=== PATIENT | male | born 1990 | race Caucasian/White ===

== ENCOUNTER 2020-11-02 10:40 | Emergency (ER) | payer MEDICAID, SELFPAY ==
--- NOTE | 2020-11-02 11:22 | PC.NURSE ---
pt not present when called for triage
== END 2020-11-02 11:45 | disposition left against medical advice (07) ==
PROVIDERS: Emergency Provider Emergency Medicine
DX: R10.9 Unspecified abdominal pain (principal)

== ENCOUNTER 2020-11-02 14:41 | Emergency (ER) | payer MEDICAID, SELFPAY ==
--- NOTE | 2020-11-02 14:54 | CT_ITS ---
EXAMINATION: CT ABDOMEN AND PELVIS WITHOUT CONTRAST CLINICAL INFORMATION: Vomiting. COMPARISON: None TECHNIQUE: Multidetector volumetric imaging was performed from the superior aspect of the liver through the pubic symphysis. Sagittal and coronal reformatted images were obtained on the technologist's workstation. This CT examination was performed using dose optimization techniques as appropriate, variously including the following: *Automated exposure control *Adjustment of mA and/or kV according to patient size (this includes techniques or standardized protocols for targeted exams where dose is matched to indication/reason for exam; i.e. extremities or head) *Use of iterative reconstruction technique DLP: 533 mGy-cm FINDINGS: LUNG BASES: The visualized lung bases are unremarkable. LIVER, GALLBLADDER, AND BILIARY TREE: The liver is normal in size, shape, and attenuation. No focal hepatic lesion or biliary ductal dilatation is present. The gallbladder is unremarkable with no evidence of radiopaque gallstones, gallbladder wall thickening, or obvious pericholecystic inflammatory changes. PANCREAS: There is fluid collection seen posterior to the body of the pancreas which is contiguous to fluid posterior to gastric fundus. The size of the fluid posterior pancreas appears smaller compared to previous study. SPLEEN: Unremarkable. ADRENAL GLANDS: Unremarkable. KIDNEYS AND URETERS: The kidneys are normal in size, shape, and attenuation. No hydronephrosis, hydroureter, or calculi seen. No perinephric stranding. BLADDER: Unremarkable. GASTROINTESTINAL TRACT: There is large amount of stool seen throughout the colon without significant distention. The appendix is normal caliber. The small bowel loops are normal caliber. No free air or inflammatory changes seen. ABDOMINAL WALL: No significant hernia is appreciated. LYMPH NODES: Normal. VASCULAR: Unremarkable. PELVIC VISCERA: Unremarkable. OSSEOUS STRUCTURES: No lytic or sclerotic process seen. CT/CT abdomen pelvis wo con IMPRESSION: There is scattered stool seen throughout the colon without any significant distention. The appendix is normal caliber. Retroperitoneal fluid collection from posterior the gastric fundus extending inferiorly to the posterior body of pancreas has decreased in size compared to previous exam 01/31/2016 There is no acute abdominal process seen
--- NOTE | 2020-11-02 14:56 | ECG_ITS ---
Test Reason : ABDOMINAL PAIN Blood Pressure : / mmHG Vent. Rate : 074 BPM Atrial Rate : 074 BPM P-R Int : 112 ms QRS Dur : 106 ms QT Int : 388 ms P-R-T Axes : 021 075 003 degrees QTc Int : 430 ms Normal sinus rhythm Normal ECG When compared with ECG of 21-MAR-2019 04:58, Nonspecific T wave abnormality no longer evident in Anterior leads Referred By: Rachel Crowder Electronically Signed By:AMARILYS ANDRADE
--- NOTE | 2020-11-02 15:02 | ED.ABDPAIN ---
HPI - Abdominal Pain General Chief Complaint: Abdominal Pain Stated Complaint: ABD PAIN/VOMITING Time Seen by Provider: 11/02/20 14:53 History of Present Illness HPI narrative: Patient is a 30-year-old male with a long history of marijuana use. Started having nausea Related Data Allergies Allergy/AdvReac Type Severity Reaction Status Date / Time No Known Allergies Allergy Unverified 07/20/20 16:07 [No Known Allergies*] PMFSH Past Medical History Medical History (Updated 11/02/20 @ 15:05 by Hector Gray) No known health problems Social History Social History Alcohol intake: never Smoking Status: Never smoker Use of substances other than those prescribed or required for medical reasons: Yes Substance Use Type: Marijuana
[2020-11-02 15:04] VITALS: BP 142/72; PULSE 72; RESP 18; TEMP 36.9; O2SAT 100; BMI 30.6
--- NOTE | 2020-11-02 15:15 | ED_ITS ---
HPI - General Adult General Chief complaint: Abdominal Pain Stated complaint: ABD PAIN/VOMITING Time Seen by Provider: 11/02/20 14:53 History of Present Illness HPI narrative: Patient is a 30-year-old male with a long history of marijuana abuse. Complaining of having multiple episodes of nausea vomiting excruciating 08/12. Patient claims that the symptoms are usually improved with a hot shower. Patient smokes some more marijuana tried a hot shower did not work continued to have nausea vomiting having abdominal pain in the epigastric area. Patient was actually calm on the ambulance. On arrival patient start sticking his finger down his throat and had a extreme nausea vomiting abdominal pain. Related Data Previous Rx's Medication Instructions Recorded ondansetron 4 mg PO TID PRN 5 Days #10 tab 11/02/20 Allergies Allergy/AdvReac Type Severity Reaction Status Date / Time No Known Allergies Allergy Unverified 07/20/20 16:07 [No Known Allergies*] Review of Systems Review of Systems: Constitutional: No Weight loss, No Fever, No Chills, No Night Sweats, No Fatigue, No Malaise ENT/Mouth: No Hearing loss, No Ear Pain, No Nasal Congestion, No Sinus Pain, No Hoarseness, No sore throat, No Rhinorrhea, No Swallowing Difficulty Eyes: No Eye Pain, No Swelling, No Redness, No Foreign Body, No Discharge, No Vision Changes Cardiovascular: No Chest Pain, No SOB, No Dyspnea on Exertion, No Orthopnea, No Edema, No Palpitations Respiratory: No Cough, No Sputum, No Wheezing, No Smoke Exposure, No Dyspnea Gastrointestinal: Positive nausea, vomiting, No Diarrhea, No Constipation, positive abdominal Pain, No Hematochezia, No Melena Genitourinary: no irregular bleeding, No Dysuria, No Urinary Frequency, No Hematuria, No Urinary Incontinence, No Urgency, No Flank Pain, No Urinary Flow Changes, No Hesitancy Musculoskeletal: No joint pain, No Myalgias, No Joint Swelling Skin: No Skin Lesions, No rash Neuro: No Weakness, No Numbness, No Paresthesias, No Loss of Consciousness, No Dizziness, No Headache Psych: No Anxiety/Panic, No Depression, No SI/HI/AH/VH, No Social Issues, Heme/Lymph: No Bruising, No Bleeding,No Lymphadenopathy Endocrine: No Polyuria, No Polydipsia, No Temperature Intolerance COUNTS INCLUDE 234 BEDS AT THE [facility] Past Medical History Attestation statement: The following information was validated with the patient. Medical History No known health problems Social History Social History Alcohol intake: never Smoking Status: Never smoker Use of substances other than those prescribed or required for medical reasons: Yes Substance Use Type: Marijuana Advance Directives: No Advance Directives Information Provided: No Physical Exam Vital Signs: Vital Signs: Last Vital Signs Temp 98.4 F 11/02/20 15:04 Pulse 72 11/02/20 15:04 Resp 18 11/02/20 15:04 BP 142/72 H 11/02/20 15:04 Pulse Ox 100 11/02/20 15:04 Body Mass Index 30.6 Appearance: Alert. Oriented X3. Nauseous vomiting Eyes: Pupils equal, round and reactive to light. ENT: Pharynx normal. Neck: Normal inspection. Neck supple. No lymph nodes noted. No crepitus CVS: Normal heart rate and rhythm. Pulses normal. Normal S1 and S2 Respiratory: No respiratory distress. Breath sounds normal. No Wheezing. No rales Abdomen: Soft and nontender. No rigidity. No distention. good BS x4 Skin: Skin warm and dry. Normal skin color. Normal skin turgor. Extremities: No lower extremity edema. Neurovascular intact to all extremities. No Lacerations. No Rash Neuro: Oriented X 3. No motor deficit. No sensory deficit. Moving all extermities. No slurred speech Medical Decision Making MDM Narrative Medical decision making narrative: Patient's CT scan of the abdomen pelvis show ed no evidence of obstruction. No abscess. No perforation. White count elevated consistent with the nausea vomiting. Electrolytes unremarkable. Discussed with patient at length the need to stop using marijuana. Patient states understanding. Will give additional doses of Zofran. IV fluids given. Patient is given Haldol initially after EKG was checked. There is no QT prolongation. In stable condition with discharge home when patient tolerate fluids. Lab Data Result diagrams: 11/02/20 15:20 11/02/20 10:26 Labs: Lab Results 11/02/20 11/02/20 Range/Units 10:26 15:20 WBC 15.2 H (4.8-10.8) X10*3/uL RBC 5.31 (4.60-5.80) X10*6/uL Hgb 14.1 (14.0-18.0) g/dl Hct 43.9 (42-52) % MCV 82.7 (80-98) fL MCH 26.6 L (27.0-33.0) pg MCHC 32.1 (31.0-36.0) g/dl RDW 12.9 (11.0-16.0) % Plt Count 218 (160-400) X10*3/uL MPV 10.5 (9.4-12.4) fL Immature Gran % (Auto) 0.3 (0.0-0.4) % Neut % (Auto) 90.5 H (45-73) % Lymph % (Auto) 3.7 L (20-40) % Ingham % (Auto) 5.3 (2-11) % Eos % (Auto) 0.0 (0-4) % Baso % (Auto) 0.2 (0-2) % Lymph # (Auto) 0.6 L (1.2-4.9) X10*3/uL [place] # (Auto) 0.8 (0.1-1.2) X10*3/uL Eos # (Auto) 0.0 (0.0-0.4) X10*3/uL Baso # (Auto) 0.0 (0.0-0.2) X10*3/uL Abs Immat Gran (auto) 0.04 H (0.00-0.03) X10*3/uL Absolute Neuts (auto) 13.7 H (2.0-8.3) X10*3/uL Absolute Nucleated RBC 0.000 (0.0-0.012) X10*3/uL Nucleated RBC % (auto) 0.0 (0.0-0.2) /100WBC Sodium 141 (135-145) mmol/L Potassium 4.1 (3.3-5.1) mmol/l Chloride 102 (96-108) mmol/L Carbon Dioxide 28 (22-29) mmol/L Anion Gap 15 (12-20) BUN 17 H (9-16) mg/dL Creatinine 1.39 (0.5-1.4) mg/dL Estim Creat Clear Calc 78.6 Estimated GFR > 60 Random Glucose 165 H (60-115) mg/dL Calcium 10.6 H (8.4-10.2) mg/dL Total Bilirubin 0.7 (0.0-1.0) mg/dL Direct Bilirubin 0.3 (0.0-0.5) mg/dL AST 20 (5-37) U/L ALT 22 (0-40) U/L Alkaline Phosphatase 76 (39-117) U/L Total Protein 7.9 (6.5-8.0) g/dL Albumin 5.4 H (3.5-5.0) g/dL Lipase 4 L (8-78) U/L ECG Data Interpretation: Sinus heart rate was 90 CA QRS QT within normal limits is no acute ST segment elevation noted. Discharge Plan Discharge Clinical Impression: Cyclic vomiting syndrome Patient Disposition: Home, Self-Care Instructions: Cyclic Vomiting Syndrome (ED) Additional Instructions: Please stop using marijuana. The marijuana does not agree with you and you can get repeated bouts of the same cyclic vomiting syndrome. Prescriptions: New ondansetron 4 mg tablet,disintegrating 4 mg PO TID PRN (Reason: nausea and vomiting) 5 Days Qty: 10 RF: 0 Referrals: [facility] [Primary Care Provider] - 2 days
[2020-11-02 15:25] LABS: Basophils Percent Auto 0.2 % (0-2); Hematocrit 43.9 % (42-52); Hemoglobin 14.1 g/dl (14.0-18.0); Imm Gran Abs Auto 0.04 X10*3/uL (0.00-0.03); Imm Gran Pct Auto 0.3 % (0.0-0.4); Lymphocytes Absolute Auto 0.6 X10*3/uL (1.2-4.9); Lymphocytes Percent Auto 3.7 % (20-40); Mean Corpuscular HGB Conc 32.1 g/dl (31.0-36.0); Mean Corpuscular Hemoglobin 26.6 pg (27.0-33.0); Mean Corpuscular Volume 82.7 fL (80-98); Mean Platelet Volume 10.5 fL (9.4-12.4); Monocytes Absolute Auto 0.8 X10*3/uL (0.1-1.2); Monocytes Percent Auto 5.3 % (2-11); Neutrophils Absolute Auto 13.7 X10*3/uL (2.0-8.3); Neutrophils Percent Auto 90.5 % (45-73); Platelet Count 218 X10*3/uL (160-400); Red Blood Count 5.31 X10*6/uL (4.60-5.80); Red Cell Distribution Width 12.9 % (11.0-16.0); SCAN SMEAR FLAG 1; White Blood Count 15.2 X10*3/uL (4.8-10.8)
[2020-11-02 15:27] LABS: MANUAL DIFF FLAG NO
[2020-11-02] MEDS: 0.9 % Sodium Chloride 1,000 ML 999 ML IV (15:27)
[2020-11-02] MEDS: Haloperidol Lactate 5 MG/ML VIAL IM (15:27)
[2020-11-02 15:54] LABS: Alanine Aminotransferase 22 U/L (0-40); Albumin Level 5.4 g/dL (3.5-5.0); Alkaline Phosphatase 76 U/L (39-117); Anion Gap 15 (12-20); Aspartate Amino Transferase 20 U/L (5-37); Bilirubin Direct 0.3 mg/dL (0.0-0.5); Bilirubin Total 0.7 mg/dL (0.0-1.0); Blood Urea Nitrogen 17 mg/dL (9-16); Calcium 10.6 mg/dL (8.4-10.2); Carbon Dioxide 28 mmol/L (22-29); Chloride 102 mmol/L (96-108); Creatinine Clr Calc Pharmacy 78.6; Estimated Glomerular Filt Rate > 60; Glucose Random 165 mg/dL (60-115); Lipase 4 U/L (8-78); Potassium 4.1 mmol/l (3.3-5.1); Sodium 141 mmol/L (135-145); Total Protein 7.9 g/dL (6.5-8.0)
[2020-11-02] MEDS: ondansetron HCL 4 MG/2 ML VIAL IVPUSH (16:34)
--- NOTE | 2020-11-02 16:36 | PC.NURSE ---
PT REPEATEDLY YELLING FROM ROOM HELP ME! NURSE! , THEN THIS RN ENTERS ROOM PT STS YOU ARENT DOING ANYTHING FOR ME , PT THEN ON PHONE TO MOTHER ASKING HER TO PICK HIM UP. DR KNIGHT HAS SPOKEN WITH PATIENT MULTIPLE TIMES ABOUT LAB AND CT RESULTS, MEDICATIONS GIVEN AND OPTIONS FOR CARE. PT MEDICATED W/ IV ZOFRAN PER EMAR, PT L SIDE LYING IN BED RESTING IN NAD, RR EVEN UNLABORED, SKIN WPD.
--- NOTE | 2020-11-02 17:08 | PC.NURSE ---
THIS RN WENT TO PT ROOM TO CHECK VITALS AND FOUND PT HAD ELOPED. THIS RN CALLED PT'S CELL PHONE, UNABLE TO REACH PT AND LEFT MSG, THEN CONTACTED MOTHER WHO REPORTED PT WAS AT HOME AND STILL HAD HIS IV IN PLACE, PT'S MOTHER VERBALLY STATED THE HE THEN REMOVED IT, THIS RN REQUESTED THAT THE IV BE RETURNED TO ED FOR PROOF OF REMOVAL OR PD WOULD BE CONTACTED, PT'S MOTHER STATED SHE WOULD BRING IT NOW.
--- NOTE | 2020-11-02 17:23 | PC.NURSE ---
PT'S MOTHER RETURNED TO ED W/ REMOVED IV
== END 2020-11-02 17:13 | disposition home or self-care (01) ==
PROVIDERS: Emergency Medicine Emergency Medical Services; Emergency Provider Emergency Medicine
DX: R11.15 Cyclical vomiting syndrome unrelated to migraine (principal); R10.9 Unspecified abdominal pain; F12.10 Cannabis abuse, uncomplicated; Z71.51 Drug abuse counseling and surveillance of drug abuser; Z79.899 Other long term (current) drug therapy
CPT/HCPCS: 36415; 74176; 80048; 80076; 83690; 85025; 93005; 96361; 96372; 96375; 99284; J2405

== ENCOUNTER 2020-11-04 09:37 | Inpatient (IN) | payer MEDICAID, SELFPAY ==
[2020-11-04] VITALS (9 sets, daily range): BP systolic 144–184; BP diastolic 82–130; PULSE 66–110; RESP 12–18; TEMP 36.5–36.9; O2SAT 97–100
--- NOTE | 2020-11-04 09:50 | XR_ITS ---
EXAMINATION: XR CHEST CLINICAL INFORMATION: Suspected free air. COMPARISON: Chest done on 03/22/2019. TECHNIQUE: 2 views of the chest were obtained. FINDINGS: No significant abnormality is noted involving the heart, lungs, mediastinum, bony thorax or soft tissues. XR/XR chest 2V IMPRESSION: Unremarkable examination. No radiographic evidence of free air.
--- NOTE | 2020-11-04 09:50 | ECG_ITS ---
Test Reason : EMESIS Blood Pressure : / mmHG Vent. Rate : 076 BPM Atrial Rate : 076 BPM P-R Int : 116 ms QRS Dur : 096 ms QT Int : 384 ms P-R-T Axes : 049 084 012 degrees QTc Int : 432 ms Normal sinus rhythm Nonspecific ST and T wave abnormality Abnormal ECG When compared with ECG of 02-NOV-2020 15:16, No significant change was found Referred By: Julia Roberts Electronically Signed By:AMARILYS ANDRADE
--- NOTE | 2020-11-04 09:59 | ED.ABDPAIN ---
HPI - Abdominal Pain General Chief Complaint: Abdominal Pain Stated Complaint: ABD PAIN W/VOMITING Time Seen by Provider: 11/04/20 09:43 Source: patient and EMS Mode of arrival: EMS History of Present Illness HPI narrative: 30 y.o. M presenting to the ED with abdominal pain, N/V. Pt. reports he is still smoking marijuana and this feels similar to his past episodes where he vomits due to his marijuana. He was seen on 11/02 and given zofran but states it has not helped. He notes some blood in his vomit. He has not slept in 3 days/. He denies fevers, CP, SOB, cough, black stool, rectal bleeding, urinary changes. Hot showers usually help but they did not today. Related Data Previous Rx's Medication Instructions Recorded ondansetron 4 mg PO TID PRN 5 Days #10 tab 11/02/20 Allergies Allergy/AdvReac Type Severity Reaction Status Date / Time No Known Allergies Allergy Verified 11/04/20 09:49 [No Known Allergies*] Review of Systems Constitutional: Denies fever(s) and Denies headache(s) Eyes: Reports no additional eye complaints Denies headache(s) Cardiovascular: Denies chest pain and Denies dyspnea Respiratory: Denies dyspnea Gastrointestinal: Reports abdominal pain and Reports vomiting Comments: denies dysuria Musculoskeletal: Reports no additional musculoskeletal complaints Denies headache(s) Comments: insomnia Hematologic/Lymphatic: Denies easy bleeding Physical Exam Vital Signs: Vital Signs: Last Vital Signs Temp 97.7 F 11/04/20 09:43 Pulse 85 11/04/20 11:09 Resp 12 11/04/20 11:56 BP 152/92 H 11/04/20 11:09 Pulse Ox 100 11/04/20 11:09 Body Mass Index 30.0 Const: Other: appears uncomfortable Orientation/consciousness: patient oriented x3 HENMT: Head: Yes normocephalic Eyes: Pupils: Equal, round and reactive pupils present Neck: Neck: Yes supple Resp: Effort & Inspection: normal respiratory effort Auscultation: clear to auscultation bilaterally Cardio: Rate: regular rate Rhythm: regular rhythm GI: Other: mild diffuse tenderness, no peritonitis, moans when palpating his abdomen Inspection: No distended Palpation (GI): Soft to palpation Back/Spine/Pelvis: Other: normal ROM Skin: Other: pale Rashes: no rashes Neuro: General: patient oriented x3 Cranial nerves: Yes Equal, round and reactive pupils present Extrem: General: Yes normal to inspection Psych: Appearance: grossly normal Course Reevaluation(s) Reevaluation #1: RN advised me Cr > 6, no hx of renal failure. Glucose 167. Suspect this may be due to a lab error, will redraw. Cr on 11/02 was 1.39 Time: 10:51 Reevaluation #2: pt. getting haldol now, still appears uncomfortable. Guiac performed with RN at bedside, negative, not much stool output but no gross melena therefore upper GI bleed less likely. Reevaluation #3: Repeat Cr downtrending but still greater than 5, BUN also elevated, on second liter of fluids now. I suspect this renal failure is secondary to the vomiting. Leukocytosis of >21, has elevated wbc at baseline, K is normal. LFTS are WNL. Tachycardia resolved after fluids. Will admit for iV hydration, pain control and antiemetics. Case was discussed with attending who agreed with admission, no further suggestions given. Time: 12:02 Consultations Additional Consultation(s): Pt. admitted to hospitalist service who requested renal US. Will order. MDM - Abdominal Pain MDM Narrative Medical decision making narrative: 30-year-old male presents to emergency department with diffuse abdominal pain and vomiting, continuing to smoke marijuana Vital signs sinificant for tachycardia HR 110, and HTN (153/109) nontoxic appearing, hemodynamically stable Will repeat basic labs today. Will check for electrolyte abnormalities. Will check LFTs and lipase. Will check UA for source of infection. Will obtain EKG prior to giving antiemetics. Will give him IV hydration with LR. Patient was seen on 11/02 and had labs drawn additionally had a abdominal CT which showed IMPRESSION: There is scattered stool seen throughout the colon without any significant distention. The appendix is normal caliber. Retroperitoneal fluid collection from posterior the gastric fundus extending inferiorly to the posterior body of pancreas has decreased in size compared to previous exam 01/31/2016 There is no acute abdominal process seen Clinical impression seems consistent with cyclical hyperemesis cannabinoid syndrome. Will treat him symptomatically. Given his CT was 3 days ago will defer on repeating. Patient also endorses blood in his vomit will send for chest x-ray to rule out free air to exclude veda diego tear, however he is currently not retching. Upper GI bleed less likely as he denies melena. No peritonitis to suggest perforated ulcer. He is an ocassional ETOH drinker, denies everyday use, pancreatitis less likely but will check lipase. Lab Data Result diagrams: 11/04/20 10:11 11/04/20 11:04 Labs: Lab Results 11/04/20 11/04/20 11/04/20 Range/Units 10:11 10:11 11:04 WBC 21.4 H (4.8-10.8) X10*3/uL RBC 6.29 H (4.60-5.80) X10*6/uL Hgb 16.9 (14.0-18.0) g/dl Hct 50.4 (42-52) % MCV 80.1 (80-98) fL MCH 26.9 L (27.0-33.0) pg MCHC 33.5 (31.0-36.0) g/dl RDW 13.1 (11.0-16.0) % Plt Count 325 D (160-400) X10*3/uL MPV 10.9 (9.4-12.4) fL Immature Gran % (Auto) 0.5 H (0.0-0.4) % Neut % (Auto) 85.4 H (45-73) % Lymph % (Auto) 6.7 L (20-40) % Richardson % (Auto) 7.2 (2-11) % Eos % (Auto) 0.0 (0-4) % Baso % (Auto) 0.2 (0-2) % Lymph # (Auto) 1.4 (1.2-4.9) X10*3/uL Richardson # (Auto) 1.5 H (0.1-1.2) X10*3/uL Eos # (Auto) 0.0 (0.0-0.4) X10*3/uL Baso # (Auto) 0.1 (0.0-0.2) X10*3/uL Abs Immat Gran (auto) 0.10 H (0.00-0.03) X10*3/uL Absolute Neuts (auto) 18.3 H (2.0-8.3) X10*3/uL Absolute Nucleated RBC 0.000 (0.0-0.012) X10*3/uL Nucleated RBC % (auto) 0.0 (0.0-0.2) /100WBC Smear Tech's Comments VERIFIED Sodium 133 L 136 (135-145) mmol/L Potassium 4.0 3.7 (3.3-5.1) mmol/l Chloride 89 L 90 L (96-108) mmol/L Carbon Dioxide 20 L 26 (22-29) mmol/L Anion Gap 28 H 24 H (12-20) BUN 38 H D 38 H (9-16) mg/dL Creatinine 6.38 H* 5.89 H* (0.5-1.4) mg/dL Estim Creat Clear Calc 16.4 17.7 Estimated GFR 10 11 Random Glucose 167 H 159 H (60-115) mg/dL Calcium 11.3 H D 10.1 D (8.4-10.2) mg/dL Total Bilirubin 0.6 0.6 (0.0-1.0) mg/dL Direct Bilirubin 0.3 (0.0-0.5) mg/dL AST 36 D 28 (5-37) U/L ALT 26 21 (0-40) U/L Alkaline Phosphatase 92 D 83 (39-117) U/L Total Protein 10.0 H D 8.6 H (6.5-8.0) g/dL Albumin 6.4 H 5.7 H (3.5-5.0) g/dL Lipase 5 L (8-78) U/L COVID-19 (JERRY) (Negative) COVID-19 Clin Com 11/04/20 Range/Units 12:12 WBC (4.8-10.8) X10*3/uL RBC (4.60-5.80) X10*6/uL Hgb (14.0-18.0) g/dl Hct (42-52) % MCV (80-98) fL MCH (27.0-33.0) pg MCHC (31.0-36.0) g/dl RDW (11.0-16.0) % Plt Count (160-400) X10*3/uL MPV (9.4-12.4) fL Immature Gran % (Auto) (0.0-0.4) % Neut % (Auto) (45-73) % Lymph % (Auto) (20-40) % Richardson % (Auto) (2-11) % Eos % (Auto) (0-4) % Baso % (Auto) (0-2) % Lymph # (Auto) (1.2-4.9) X10*3/uL Richardson # (Auto) (0.1-1.2) X10*3/uL Eos # (Auto) (0.0-0.4) X10*3/uL Baso # (Auto) (0.0-0.2) X10*3/uL Abs Immat Gran (auto) (0.00-0.03) X10*3/uL Absolute Neuts (auto) (2.0-8.3) X10*3/uL Absolute Nucleated RBC (0.0-0.012) X10*3/uL Nucleated RBC % (auto) (0.0-0.2) /100WBC Smear Tech's Comments Sodium (135-145) mmol/L Potassium (3.3-5.1) mmol/l Chloride (96-108) mmol/L Carbon Dioxide (22-29) mmol/L Anion Gap (12-20) BUN (9-16) mg/dL Creatinine (0.5-1.4) mg/dL Estim Creat Clear Calc Estimated GFR Random Glucose (60-115) mg/dL Calcium (8.4-10.2) mg/dL Total Bilirubin (0.0-1.0) mg/dL Direct Bilirubin (0.0-0.5) mg/dL AST (5-37) U/L ALT (0-40) U/L Alkaline Phosphatase (39-117) U/L Total Protein (6.5-8.0) g/dL Albumin (3.5-5.0) g/dL Lipase (8-78) U/L COVID-19 (JERRY) Negative (Negative) COVID-19 Clin Com See Note ECG Data ECG interpretation date: 11/04/20 Interpretation: rate 76, NSR T wave inversion in III no STEMI QTC 432 Discharge Plan Discharge Clinical Impression: Cannabinoid hyperemesis syndrome, Renal failure, acute Patient Disposition: Admitted As Inpatient [facility] Past Medical History Medical History No known health problems Social History Social History (Updated 11/04/20 @ 10:07 by STEFFANY Hernandez) Alcohol intake: current Alcohol type: wine Smoking Status: Current every day smoker Substance Use Type: Marijuana Advance Directives: No Advance Directives Information Provided: Yes
[2020-11-04 10:19] LABS: Basophils Absolute Auto 0.1 X10*3/uL (0.0-0.2); Basophils Percent Auto 0.2 % (0-2); Hematocrit 50.4 % (42-52); Hemoglobin 16.9 g/dl (14.0-18.0); Imm Gran Pct Auto 0.5 % (0.0-0.4); Lymphocytes Absolute Auto 1.4 X10*3/uL (1.2-4.9); Lymphocytes Percent Auto 6.7 % (20-40); MANUAL DIFF FLAG SCAN; Mean Corpuscular HGB Conc 33.5 g/dl (31.0-36.0); Mean Corpuscular Hemoglobin 26.9 pg (27.0-33.0); Mean Corpuscular Volume 80.1 fL (80-98); Mean Platelet Volume 10.9 fL (9.4-12.4); Monocytes Absolute Auto 1.5 X10*3/uL (0.1-1.2); Monocytes Percent Auto 7.2 % (2-11); Neutrophils Absolute Auto 18.3 X10*3/uL (2.0-8.3); Neutrophils Percent Auto 85.4 % (45-73); Platelet Count 325 X10*3/uL (160-400); Red Blood Count 6.29 X10*6/uL (4.60-5.80); Red Cell Distribution Width 13.1 % (11.0-16.0); SCAN SMEAR FLAG 1; White Blood Count 21.4 X10*3/uL (4.8-10.8)
[2020-11-04 10:39] LABS: SLIDE REVIEW VERIFIED
[2020-11-04 10:46] LABS: Alanine Aminotransferase 26 U/L (0-40); Albumin Level 6.4 g/dL (3.5-5.0); Alkaline Phosphatase 92 U/L (39-117); Anion Gap 28 (12-20); Aspartate Amino Transferase 36 U/L (5-37); Bilirubin Direct 0.3 mg/dL (0.0-0.5); Bilirubin Total 0.6 mg/dL (0.0-1.0); Blood Urea Nitrogen 38 mg/dL (9-16); Calcium 11.3 mg/dL (8.4-10.2); Carbon Dioxide 20 mmol/L (22-29); Chloride 89 mmol/L (96-108); Glucose Random 167 mg/dL (60-115); Lipase 5 U/L (8-78); Sodium 133 mmol/L (135-145)
[2020-11-04 10:48] LABS: Creatinine Clr Calc Pharmacy 16.4; Estimated Glomerular Filt Rate 10
[2020-11-04] MEDS: Haloperidol Lactate 5 MG/ML VIAL 2.5 MG IVPUSH ×2 (10:55→13:47)
[2020-11-04] MEDS: Lactated Ringers 1,000 ML 999 ML IVCONT ×2 (10:55→11:37)
--- NOTE | 2020-11-04 11:10 | PC.NURSE ---
Medicated as charted with Haldol, pt states pain remains but now resting quietly with eyes closed, no nausea/vomiting noted. Repeat chemistry obtained/sent.
[2020-11-04 11:43] LABS: Alanine Aminotransferase 21 U/L (0-40); Albumin Level 5.7 g/dL (3.5-5.0); Alkaline Phosphatase 83 U/L (39-117); Anion Gap 24 (12-20); Aspartate Amino Transferase 28 U/L (5-37); Bilirubin Total 0.6 mg/dL (0.0-1.0); Blood Urea Nitrogen 38 mg/dL (9-16); Calcium 10.1 mg/dL (8.4-10.2); Carbon Dioxide 26 mmol/L (22-29); Chloride 90 mmol/L (96-108); Glucose Random 159 mg/dL (60-115); Potassium 3.7 mmol/l (3.3-5.1); Sodium 136 mmol/L (135-145); Total Protein 8.6 g/dL (6.5-8.0)
[2020-11-04 11:44] LABS: Creatinine Clr Calc Pharmacy 17.7; Estimated Glomerular Filt Rate 11
[2020-11-04] MEDS: Morphine Sulfate 4 MG/ML CARTRIDGE IVPUSH ×2 (11:56→21:48)
--- NOTE | 2020-11-04 12:06 | PC.NURSE ---
Spoke to pts mother Quin contact [phone], updated on pts plan of care with verbal permission of pt. Plan for admission.
--- NOTE | 2020-11-04 12:33 | US_ITS ---
EXAMINATION: US RETROPERITONEAL LIMITED (RENAL ONLY) CLINICAL INFORMATION: Renal failure. COMPARISON: CT scan of the abdomen and pelvis without intravenous contrast dated 11/02/2020. TECHNIQUE: Multiple 2-D grayscale and color Doppler ultrasound images of the kidneys were obtained. FINDINGS: RIGHT KIDNEY: 11.1 x 6.0 x 4.9 cm (SAG x AP x TRV). The kidney is normal in size, contour, and echogenicity. Renal cortical thickness is normal. No calculi or focal parenchymal lesions. No hydronephrosis. LEFT KIDNEY: 11.3 x 6.3 x 5.1 cm (SAG x AP x TRV). The kidney is normal in size, contour, and echogenicity. Renal cortical thickness is normal. No calculi or focal parenchymal lesions. No hydronephrosis. US/US renal BI IMPRESSION: Unremarkable renal ultrasound.
[2020-11-04 12:44] LABS: COVID-19 Test Negative (Negative)
--- NOTE | 2020-11-04 13:29 | PM.IMHP ---
History of Present Illness Date of Service: 11/04/20 <Mehnaz Garcia NP - Last Filed: 11/04/20 14:04> Chief Complaint: vomiting <Mehnaz Garcia NP - Last Filed: 11/04/20 14:04> 30 year old man presenting with nausea and vomiting over the last 3 days with sharp abdominal pain. He has a history of marijuana induced cyclical vomiting syndrome. He reports smoking marijuana on a daily basis. He reported that he has been vomiting and has not been eating and drinking. He also reported less urination. He denied fever, chills, recent travel or improperly cooked foods. Vital signs stable. Creatinine elevated at 6.38. Leukocytosis noted. He was given antiemetics and IV fluids. He will be admitted for JOSE and intractable nausea and vomiting. <Mehnaz Garcia NP - Last Filed: 11/04/20 14:04> Review of Systems Review of Systems: Denies any recent fever chills or decrease in appetite respiratory denies any shortness of breath coverage production cardiovascular is adjustment of any PND or edema gastrointestinal See HPI genitourinary See HPI musculoskeletal denies any joint pain or swelling neuropsych denies any weakness or seizures all other systems reviewed are negative <Mehnaz Garcia NP - Last Filed: 11/04/20 14:04> Constitutional: Constitutional: Denies headache(s) <Mehnaz Garcia NP - Last Filed: 11/04/20 14:04> ENT: Denies headache(s) <Mehnaz Garcia NP - Last Filed: 11/04/20 14:04> Neurologic: Denies headache(s) <Mehnaz Garcia NP - Last Filed: 11/04/20 14:04> [facility] Medical History: Medical History (Updated 11/10/20 @ 00:01 by Jorge A Costello) Abdominal pain Cocaine abuse No known health problems Pneumomediastinum Pneumothorax <Mehnaz Garcia NP - Last Filed: 11/04/20 14:04> Pertinent family history: No cardiac history <Mehnaz Garcia NP - Last Filed: 11/04/20 14:04> Social History: Social History (Updated 11/04/20 @ 13:38 by Mehnaz Garcia NP) Household Members: Family Housing: Apartment Alcohol intake: current Alcohol intake frequency: a few times a week Alcohol type: wine Smoking Status: Never smoker Tobacco Type: Cigarette Second Hand Smoke Exposure: No Substance Use Type: Marijuana Advance Directives: No Advance Directives Information Provided: No service: No Current occupational status: unemployed <Mehnaz Garcia NP - Last Filed: 11/04/20 14:04> Meds Allergies/Adverse reactions: Allergies Allergy/AdvReac Type Severity Reaction Status Date / Time No Known Allergies Allergy Verified 11/04/20 09:49 [No Known Allergies*] <Mehnaz Garcia NP - Last Filed: 11/04/20 14:04> Physical Exam Vital Signs and Narrative: Vital Signs: Last Vital Signs Temp 97.7 F 11/04/20 09:43 Pulse 85 11/04/20 11:09 Resp 12 11/04/20 11:56 BP 152/92 H 11/04/20 11:09 Pulse Ox 100 11/04/20 11:09 Body Mass Index 30.0 <Mehnaz aGrcia NP - Last Filed: 11/04/20 14:04> Appearing in no acute distress head is normocephalic atraumatic eyes pupils are PERRLA sclera is anicteric mouth throat mucous membranes are intact and moist neck is supple no lymphadenopathy, no JVD noted lung sounds are clear to auscultation heart regular rate rhythm, clear S1, S2 positive bowel sounds, abdomen is soft, nontender neuro patient is alert x3, no focal deficits <Mehnaz Garcia NP - Last Filed: 11/04/20 14:04> Results Labs CBC and Chem 7: : 11/05/20 06:58 11/06/20 10:34 <Mehnaz Garcia NP - Last Filed: 11/04/20 14:04> Labs: Laboratory Results - last 24 hr 11/04/20 11/04/20 11/04/20 10:11 10:11 11:04 MCV 80.1 MCH 26.9 L MCHC 33.5 RDW 13.1 Plt Count 325 D MPV 10.9 Immature Gran % (Auto) 0.5 H Neut % (Auto) 85.4 H Lymph % (Auto) 6.7 L [place] % (Auto) 7.2 Eos % (Auto) 0.0 Baso % (Auto) 0.2 Lymph # (Auto) 1.4 [place] # (Auto) 1.5 H Eos # (Auto) 0.0 Baso # (Auto) 0.1 Abs Immat Gran (auto) 0.10 H Absolute Neuts (auto) 18.3 H Absolute Nucleated RBC 0.000 Nucleated RBC % (auto) 0.0 Smear Tech's Comments VERIFIED Anion Gap 28 H 24 H Estim Creat Clear Calc 16.4 17.7 Estimated GFR 10 11 Random Glucose 167 H 159 H Calcium 11.3 H D 10.1 D Total Bilirubin 0.6 0.6 Direct Bilirubin 0.3 AST 36 D 28 ALT 26 21 Alkaline Phosphatase 92 D 83 Total Protein 10.0 H D 8.6 H Albumin 6.4 H 5.7 H Lipase 5 L COVID-19 (JERRY) COVID-19 Clin Com 11/04/20 12:12 MCV MCH MCHC RDW Plt Count MPV Immature Gran % (Auto) Neut % (Auto) Lymph % (Auto) [place] % (Auto) Eos % (Auto) Baso % (Auto) Lymph # (Auto) [place] # (Auto) Eos # (Auto) Baso # (Auto) Abs Immat Gran (auto) Absolute Neuts (auto) Absolute Nucleated RBC Nucleated RBC % (auto) Smear Tech's Comments Anion Gap Estim Creat Clear Calc Estimated GFR Random Glucose Calcium Total Bilirubin Direct Bilirubin AST ALT Alkaline Phosphatase Total Protein Albumin Lipase COVID-19 (JERRY) Negative COVID-19 Clin Com See Note <Mehnaz Garcia NP - Last Filed: 11/04/20 14:04> Imaging Radiologist's Impressions: Impressions Chest X-Ray 11/04/20 09:50 IMPRESSION: Unremarkable examination. No radiographic evidence of free air. <Mehnaz Garcia NP - Last Filed: 11/04/20 14:04> Assessment and Plan (1) Renal failure, acute: Status: Acute <Mehnaz Garcia NP - Last Filed: 11/04/20 14:04> (2) Cannabinoid hyperemesis syndrome: Status: Acute <Mehnaz Garcia NP - Last Filed: 11/04/20 14:04> 30 year old man admitted with intractable nausea and vomiting contributing to JOSE. Seems like marijuana related. Recent Abdominal CT showed no acute abnormalities. JOSE. Likely from dehydration, obtain renal ultrasound, U/A. Continue IV fluids. Nephrology consultation if no improvement seen. Intractable nausea and vomiting. Antiemetics, IV fluids, GI consult, PPI. Supportive care. Substance abuse. Marijuana and cocaine. Discussed the importance of cessation. DVT prophylaxis with early ambulation. Discussed with Dr. Douglas Full code. <Mehnaz Garcia NP - Last Filed: 11/04/20 14:04>
--- NOTE | 2020-11-04 13:47 | PC.NURSE ---
Seen by hospitalist. Renal bedside ultrasound completed, pt wretching again and vomiting, medicated as charted voided 150ml of dark yellow urine, Provider to be notified. Pt resting with eyes closed at this time
[2020-11-04] MEDS: 0.9 % Sodium Chloride 500 ML 150 ML IV (14:00)
--- NOTE | 2020-11-04 15:29 | PC.NURSE ---
Call from DEREK Guillen changes to LR at 150ml/hr. Pt asleep at this time, awaits bed assgn
[2020-11-04] MEDS: Lactated Ringers 1,000 ML 100 ML IVCONT ×2 (15:57→21:54)
--- NOTE | 2020-11-04 16:40 | PM.EVENT ---
Event Note Date of Service: 11/05/20 Event Note: This patient is seen and examined with APC. Lab imaging, ekg reviewed. Patient came to the hospital on 11/02: With similar symptoms of nausea vomiting- was feeling better after symptomatic treatment and was sent home on zofran, he says he continued to these symptoms is a vomiting and subsequently came to the hospital today abdominal discomfort and nausea vomiting. In addition patient continued to use marijuana and cocaine Labs johnson found to have a KI and creatinine of 6.3, chest imaging seems negative and UA negative. CT abdomen on 11/02: Seems fine except some constipation. Patient says that his passing gases and bowels As mild leukocytosis-UA negative, chest x-ray negative Patient received antiemetic and IV fluid and creatinine repeated came to 5.9 range Physical exam : Cvs: [id number], [id number] , no murmur res: clear to auscultation ,no rhonchii or wheezing abd: no rebound or guarding , mild abd pain epigastric, bs present. ext pulses present , no cyanosis neuro: axo3 , nonfocal. assessment and plan coordinated in APCs note, Agree with the plan in addition: Nausea vomiting related to cyclic : Avoid marijuana and cocaine Symptomatic treatment with antiemetic and continue IV fluid for JOSE. Leukocytosis/mildly elevated blood pressure probably related to cocaine use.
[2020-11-04 17:01] LABS: Glucose Urine UA NEG (NEG); Leukocyte Esterase Urine NEG (NEG); Nitrite Urine NEG (NEG); PH 5.5 (5.0-8.0); Specific Gravity - Urine >= 1.030 (1.005-1.025); Urine Blood 2+ (NEG); Urine Ketones NEG (NEG); Urine Protein 1+ MG/DL (NEG-TRACE)
[2020-11-04 17:06] LABS: Appearance Urine CLEAR; Color Urine YELLOW
[2020-11-04] MEDS: Famotidine/PF 20 MG/2 ML VIAL IVPUSH ×2 (17:18→21:48)
[2020-11-04 17:20] LABS: Anion Gap 17 (12-20); Blood Urea Nitrogen 34 mg/dL (9-16); Calcium 9.5 mg/dL (8.4-10.2); Carbon Dioxide 28 mmol/L (22-29); Chloride 94 mmol/L (96-108); Creatinine Clr Calc Pharmacy 29.5; Estimated Glomerular Filt Rate 21; Glucose Random 129 mg/dL (60-115); Potassium 3.4 mmol/l (3.3-5.1); Sodium 136 mmol/L (135-145)
[2020-11-04 17:22] LABS: Squamous Epithelial Cell Urine 3+ /LPF; UACC CULT YES
[2020-11-04 17:23] LABS: Mucus Urine 1+ /LPF
--- NOTE | 2020-11-04 18:22 | PC.NURSE ---
Awaiting room assgn at 1900, sleeping at this time
--- NOTE | 2020-11-04 19:28 | PC.NURSE ---
report given to rn on floor, pt ready for transport.
[2020-11-04] MEDS: Acetaminophen 325 MG TABLET 650 MG PO (19:38)
[2020-11-04 20:41] LABS: Anion Gap 18 (12-20); Blood Urea Nitrogen 33 mg/dL (9-16); Calcium 9.5 mg/dL (8.4-10.2); Carbon Dioxide 30 mmol/L (22-29); Chloride 94 mmol/L (96-108); Creatinine Clr Calc Pharmacy 37.1; Estimated Glomerular Filt Rate 27; Glucose Random 119 mg/dL (60-115); Potassium 3.5 mmol/l (3.3-5.1); Sodium 138 mmol/L (135-145)
[2020-11-04] MEDS: 0.9 % Sodium Chloride Flush 3 ML SYRINGE IVFLUSH (21:49)
[2020-11-05] MEDS: Acetaminophen 325 MG TABLET 650 MG PO ×3 (00:48→19:53)
[2020-11-05 03:53] VITALS: BP 142/87; PULSE 94; RESP 16; TEMP 37.1; O2SAT 97
[2020-11-05 07:00] VITALS: BP 138/88; PULSE 70; RESP 18; TEMP 36.6; O2SAT 97
[2020-11-05] MEDS: traMADoL HCL 50 MG TABLET PO (07:06)
[2020-11-05] MEDS: 0.9 % Sodium Chloride Flush 3 ML SYRINGE IVFLUSH (07:09)
[2020-11-05 07:10] LABS: MANUAL DIFF FLAG NO
[2020-11-05] MEDS: Lactated Ringers 1,000 ML 100 ML IVCONT ×2 (07:11→16:14)
[2020-11-05 07:18] LABS: Basophils Percent Auto 0.1 % (0-2); Eosinophils Percent Auto 0.1 % (0-4); Hematocrit 43.9 % (42-52); Hemoglobin 14.5 g/dl (14.0-18.0); Imm Gran Abs Auto 0.05 X10*3/uL (0.00-0.03); Imm Gran Pct Auto 0.4 % (0.0-0.4); Lymphocytes Absolute Auto 2.4 X10*3/uL (1.2-4.9); Lymphocytes Percent Auto 17.2 % (20-40); Mean Corpuscular Hemoglobin 26.7 pg (27.0-33.0); Mean Corpuscular Volume 80.7 fL (80-98); Mean Platelet Volume 11.1 fL (9.4-12.4); Monocytes Absolute Auto 1.2 X10*3/uL (0.1-1.2); Monocytes Percent Auto 8.7 % (2-11); Neutrophils Absolute Auto 10.1 X10*3/uL (2.0-8.3); Neutrophils Percent Auto 73.5 % (45-73); Platelet Count 252 X10*3/uL (160-400); Red Blood Count 5.44 X10*6/uL (4.60-5.80); Red Cell Distribution Width 12.8 % (11.0-16.0); White Blood Count 13.7 X10*3/uL (4.8-10.8)
[2020-11-05 07:40] LABS: Anion Gap 18 (12-20); Blood Urea Nitrogen 30 mg/dL (9-16); Calcium 9.9 mg/dL (8.4-10.2); Carbon Dioxide 27 mmol/L (22-29); Chloride 95 mmol/L (96-108); Creatinine Clr Calc Pharmacy 63.8; Estimated Glomerular Filt Rate 50; Glucose Random 105 mg/dL (60-115); Potassium 3.6 mmol/l (3.3-5.1); Sodium 136 mmol/L (135-145)
[2020-11-05] MEDS: Famotidine/PF 20 MG/2 ML VIAL IVPUSH ×2 (09:42→21:00)
[2020-11-05] MEDS: ondansetron HCL 4 MG/2 ML VIAL IVPUSH (09:45)
--- NOTE | 2020-11-05 10:00 | HO.PM.IMPN ---
Subjective Subjective Date of Service: 11/05/20 Interval History: jose, cyclic vomiting Review of Systems Abdominal discomfort improving, denies any vomiting, still has nausea. Denies any chest pain or shortness of breath or fever or chills or any urinary complaints. Physical Exam Vital Signs: Vital Signs: Last Vital Signs Temp 98 F 11/05/20 07:00 Pulse 70 11/05/20 07:00 Resp 18 11/05/20 07:00 BP 138/88 11/05/20 07:00 Pulse Ox 97 11/05/20 07:00 Body Mass Index 30.0 Physical exam: Constitutional: Not in acute distress HEENT: Eyes anicteric ,no discharge. Cvs: [id number], [id number] , no murmur res: clear to auscultation ,no rhonchii or wheezing abd: no rebound or guarding ,mild epigastric discomfort, bs present. ext pulses present , no cyanosis neuro: axo3 , nonfocal. Objective Data Current Medications Generic Name Dose Route Start Last Admin Trade Name Freq PRN Reason Stop Dose Admin Acetaminophen 650 mg 11/04/20 15:13 11/05/20 06:23 Acetaminophen 325 Mg Tablet PO 650 mg Q6H PRN Administration Pain, Mild (Pain Scale 1-3) Famotidine 20 mg 11/04/20 21:00 11/05/20 09:42 Famotidine/Pf 20 Mg/2 Ml Vial IVPUSH 20 mg BID VINAYAK Administration Lactated Ringer's 1,000 mls @ 100 mls/hr 11/04/20 15:30 11/05/20 07:11 Lr IVCONT 100 mls/hr .Q10H VINAYAK Administration Lidocaine 0.5 patch 11/06/20 09:00 Lidocaine 4 % Patch Adh..Patch TRANSDERMA DAILY VINAYAK Protocol Ondansetron HCl 4 mg 11/04/20 15:13 11/05/20 09:45 Ondansetron Hcl 4 Mg/2 Ml Vial IVPUSH 4 mg Q8H PRN Administration Nausea and Vomiting Sodium Chloride 3 ml 11/04/20 16:00 11/05/20 07:09 0.9 % Sodium Chloride Flush 3 Ml Syringe IVFLUSH 3 ml QSHIFT VINAYAK Administration Labs CBC & Chem 7: 11/05/20 06:58 11/05/20 06:58 Assessment and Plan (1) Cannabinoid hyperemesis syndrome: Status: Acute (2) Renal failure, acute: Status: Acute Assessment and Plan: 30 year old man admitted with intractable nausea and vomiting contributing to JOSE. Seems like marijuana related. Recent Abdominal CT showed no acute abnormalities. 1.JOSE. cyclic vomiting : Likely from dehydration, obtain renal ultrasound-seems fine , Continue IV fluids. 2.Intractable nausea and vomiting. Antiemetics, IV fluids, GI consult, PPI. Supportive care. 3.Substance abuse. Marijuana and cocaine. Discussed the importance of cessation. DVT prophylaxis with early ambulation.
--- NOTE | 2020-11-05 10:31 | PM.GICN ---
History of Present Illness Data of Consult Service Date: 11/05/20 Requesting physician: Gómez Douglas Primary Care Provider: Unknown Physician HPI Reason for consult: Intractable vomiting/abdominal pain; Daily Marijuana use 30 yo male who is admitted for recurrent episode of nausea, vomiting, abdominal pain with significant renal dysfunction due to his dehydration, etc. He says the only recent change was his using a bong to deliver his MJ. No recent exposure to tainted foods, etc. Denies any daily heartburn or GERD symptoms. Review of Systems Constitutional: Constitutional: Denies headache(s) ENT: Denies headache(s) Cardiovascular: Cardiovascular: Denies Abdominal Distension, Denies chest pain, Reports Epigastric Pain, Denies leg edema and Denies palpitations Respiratory: Respiratory: Reports no additional respiratory complaints, Denies pain with cough and Denies wheezing Gastrointestinal: Gastrointestinal: Reports abdominal pain (lessening; area felt better with use of the Lidoderm patch; located subxiph), Reports nausea and Reports vomiting Neurologic: Denies headache(s) Endocrine: Endocrine: Denies palpitations Allergic/Immunologic: Allergic/Immunologic: Denies wheezing PMFSH Past Medical History Medical History No known health problems Pneumomediastinum Pneumothorax Social History Social History (Updated 11/04/20 @ 13:38 by Mehnaz Garcia NP) Household Members: Friend(s) Housing: Apartment Do you presently have visiting nurse or other home services: No Alcohol intake: current Alcohol type: wine Smoking Status: Current every day smoker Tobacco Type: Cigarette Substance Use Type: Marijuana Substance Use Frequency: Daily Last Used Substance: Days (ago) Currently Displaying Signs/Symptoms of Drug Intoxication Withdrawal: No Any prior treatment program specific to substance use: No Have you been hit, kicked, punched, or otherwise hurt by someone within the past year? If so, by whom?: No Do you feel safe in your current relationship?: No Is there a partner from a previous relationship who is making you feel unsafe now?: No Are you made to feel afraid or neglected: No Advance Directives: No Advance Directives Information Provided: Yes Do you have thoughts of harming others: None Do you have a plan to hurt others: No Plan Recently lost weight without trying: Unsure Meds Allergies Allergy/AdvReac Type Severity Reaction Status Date / Time No Known Allergies Allergy Verified 11/04/20 09:49 [No Known Allergies*] Home Medications Medication Instructions Recorded Confirmed Type No Known Home Meds 11/04/20 11/04/20 History Physical Exam Vital Signs: Vital Signs: Last Vital Signs Temp 98 F 11/05/20 07:00 Pulse 70 11/05/20 07:00 Resp 18 11/05/20 07:00 BP 138/88 11/05/20 07:00 Pulse Ox 97 11/05/20 07:00 Body Mass Index 30.0 Const: General: cooperative and well developed Resp: Effort & Inspection: normal respiratory effort, able to speak in complete sentences and no use of accessory muscles Auscultation: clear to auscultation bilaterally Cardio: Rate: regular rate Rhythm: regular rhythm Heart sounds: no murmurs GI: Inspection: No distended, No obesity and No visible herniation Palpation (GI): nontender, no guarding and no masses Skin: General skin exam: no rashes or lesions noted Results Labs CBC & Chem 7: 11/05/20 06:58 11/05/20 06:58 Labs: Short CBC 11/05/20 Range/Units 06:58 WBC 13.7 H (4.8-10.8) X10*3/uL Hgb 14.5 (14.0-18.0) g/dl Hct 43.9 (42-52) % Plt Count 252 (160-400) X10*3/uL BMP 11/04/20 11/04/20 11/04/20 10:11 11:04 16:44 Sodium 133 L 136 136 Potassium 4.0 3.7 3.4 Chloride 89 L 90 L 94 L Carbon Dioxide 20 L 26 28 BUN 38 H D 38 H 34 H Creatinine 6.38 H* 5.89 H* 3.54 H Calcium 11.3 H D 10.1 D 9.5 11/04/20 11/05/20 20:06 06:58 Sodium 138 136 Potassium 3.5 3.6 Chloride 94 L 95 L Carbon Dioxide 30 H 27 BUN 33 H 30 H Creatinine 2.82 H 1.64 H Calcium 9.5 9.9 Liver Function 11/04/20 11/04/20 Range/Units 10:11 11:04 Total Bilirubin 0.6 0.6 (0.0-1.0) mg/dL Direct Bilirubin 0.3 (0.0-0.5) mg/dL AST 36 D 28 (5-37) U/L ALT 26 21 (0-40) U/L Alkaline Phosphatase 92 D 83 (39-117) U/L Albumin 6.4 H 5.7 H (3.5-5.0) g/dL Urine 11/04/20 Range/Units 16:44 Urine Color YELLOW Urine Appearance CLEAR Urine pH 5.5 (5.0-8.0) Ur Specific [place] >= 1.030 H (1.005-1.025) Urine Protein 1+ H (NEG-TRACE) MG/DL Urine Glucose (UA) NEG (NEG) MG/DL Assessment and Plan (1) Nausea & vomiting: Status: Acute Seems to be improving. Continue with IV Famotidine, Reglan prn or Zofran I did correctional counselor patient again about Cannabinoid induced symptoms. He may have had more aerophagia triggering SX with use of bong (2) Abdominal pain: Status: Acute area of midepigastric tenderness is responding to the Lidoderm patch--This patients frequently have parietal and visceral hyperalgesia.--Lidoderm patches due help break the hyperesthetic pain cycle. CT abdomen did show stool throughout the colon--advance diet if no bm consider dosing with Miralax. (3) Cannabinoid hyperemesis syndrome: Status: Acute Consider Substance abuse counseling--patient does have reports of MJ and cocaine use. He would like to avoid these episodes but does not seem to be interested in avoiding substances that trigger his symptoms. Treatment for this is as has been ordered.
[2020-11-05] MEDS: Lidocaine 4 % Patch ADH..PATCH 1 PATCH TRANSDERMA ×2 (11:53→17:22)
[2020-11-05 12:00] VITALS: BP 137/83; PULSE 98; RESP 16; TEMP 36.6; O2SAT 100
--- NOTE | 2020-11-05 13:57 | MHC.CARE ---
CARE team responded to consult request to speak to patient regarding cannabis and cocaine use despite negative health consequences. He was resting in a darkened room but answered to his name, declined suggestion of turning up the lights for a conversation. Patient stated, ?Someone already talked to me and I am fine.? Inquired about his available supports or if he needed any referrals, abruptly said he was not interested. Provider updated. Contact CARE team at [phone] if needed.
[2020-11-05 15:26] VITALS: BP 136/90; PULSE 91; RESP 18; TEMP 36.2; O2SAT 98
[2020-11-05] MEDS: Metoclopramide HCl 10 MG/2 ML VIAL 2.5 MG IVPUSH (16:14)
--- NOTE | 2020-11-05 18:16 | PC.NURSE ---
PT IN AND OUT OF SHOWER ALL DAY. DISCONNECTS HIS OWN IVF AND RECONNECTS. ENCOURAGED TO ALLOW NURSING STAFF TO DO THIS TASK. THIS RN RESTARTED 2 NEW IVS TODAY DUE TO ONE PULLED OUT MISTAKENLY BY PT AND INFILTRATE. PT CONTINUOUSLY ASKING FOR MORE MEDICATION STATES SLIGHT NAUSEA THIS MORNING- MEDICATED WITH ZOFRAN WITH SOME EFFECT. LIDOCAINE PATCH APPLIED TO ABDOMEN THEN PT TOOK SEVERAL SHOWERS WHERE PATCH BECAME SOAKED. DR VELAZQUEZ NOTIFIED AND NEW PATCH ORDERED. CURRENTLY AMBULATING IN [place]. TOLERATES LIQUIDS ONLY, STATES SOLID FOOD MAKES HIS STOMACH HRT
[2020-11-05 19:55] VITALS: BP 156/99; PULSE 82; RESP 18; TEMP 36.6; O2SAT 96
[2020-11-05] MEDS: Melatonin 3 MG TABLET PO (21:00)
[2020-11-05 23:22] VITALS: BP 129/79; PULSE 80; RESP 20; TEMP 36.7; O2SAT 98
[2020-11-06] MEDS: ondansetron HCL 4 MG/2 ML VIAL IVPUSH (00:24)
[2020-11-06] MEDS: traZODone HCL 25 MG HALFTAB PO (00:42)
[2020-11-06] MEDS: traMADoL HCL 50 MG TABLET PO ×2 (02:45→21:01)
[2020-11-06 04:00] VITALS: BP 148/79; PULSE 101; RESP 20; TEMP 36.8; O2SAT 96
[2020-11-06] MEDS: Lactated Ringers 1,000 ML 100 ML IVCONT (04:36)
[2020-11-06] MEDS: Lidocaine 4 % Patch ADH..PATCH 1 PATCH TRANSDERMA (05:53)
[2020-11-06 07:45] VITALS: BP 159/94; PULSE 79; RESP 18; TEMP 36.4; O2SAT 97
[2020-11-06] MEDS: Famotidine/PF 20 MG/2 ML VIAL IVPUSH (10:28)
[2020-11-06] MEDS: Acetaminophen 325 MG TABLET 650 MG PO ×2 (10:33→16:26)
[2020-11-06 11:46] LABS: Anion Gap 17 (12-20); Blood Urea Nitrogen 27 mg/dL (9-16); Carbon Dioxide 29 mmol/L (22-29); Chloride 90 mmol/L (96-108); Estimated Glomerular Filt Rate 53; Glucose Random 145 mg/dL (60-115); Potassium 3.6 mmol/l (3.3-5.1); Sodium 132 mmol/L (135-145)
[2020-11-06 12:00] VITALS: BP 150/104; PULSE 98; RESP 18; TEMP 36.7; O2SAT 98
--- NOTE | 2020-11-06 12:04 | MHC.RECOVSUP ---
Recovery Support note: Patient is a 30 year old Bulgarian speaking male who presented to [facility] ED due to nausea, vomiting and abdominal pain. This automotive service writer met with patient in room 380-1 to discuss his substance use. Patient reports he never wants to feel this way again and he has decided to quit smoking marijuana and cigarettes. Patient reports that his consumption has increased since the start of the pandemic because he doens't have anything to do. Discussed the benefits of stopping substance use with patient and patient reports great confidence he will be able to maintain sobriety. Patient reports he has a supportive girlfriend who does not use substances. Discussed outpatient supports with patient and patient declined, stating that he knows he will be able to stop on his own but he will consider getting connected with other supports if he needs additional help down the road. Patient reports severe discomfort and states the only thing that has been helpful was the narcotics he was previously given. Discussed case with patient's RN.
[2020-11-06 16:00] VITALS: BP 143/95; PULSE 92; RESP 20; TEMP 36.6; O2SAT 97
--- NOTE | 2020-11-06 16:17 | PC.NURSE ---
pt pulled out his IV after nurse just put it in. He stated that it was bothering him. He spent a lot of time in the shower. Medicated with tylenol for pain no opiates to be given. I tiger texed Dr. Brian and asked if he could make the pepcid PO because this was the second IV he pulled out within [address] Brian made the pepcid PO.
--- NOTE | 2020-11-06 16:52 | HO.PM.IMPN ---
Subjective Subjective Date of Service: 11/06/20 Interval History: did not tolerate solids ongoing N/V no fever/chills no diarrhea Physical Exam Vital Signs: Vital Signs: Last Vital Signs Temp 97.9 F 11/06/20 16:00 Pulse 92 11/06/20 16:00 Resp 20 11/06/20 16:00 BP 143/95 H 11/06/20 16:00 Pulse Ox 97 11/06/20 16:00 Body Mass Index 30.0 Gen: in no acute distress HEENT: sclera anicteric, moist mucus membranes Neck: supple Lungs: clear to auscultation bilaterally Heart: regular rate and rhythm, no murmurs Abd: soft, non-tender, non-distended Ext: no edema Skin: warm/well-perfused Neuro: alert and oriented x3, no focal findings Psych: appropriate affect Objective Data Current Medications Generic Name Dose Route Start Last Admin Trade Name Freq PRN Reason Stop Dose Admin Acetaminophen 650 mg 11/04/20 15:13 11/06/20 16:26 Acetaminophen 325 Mg Tablet PO 650 mg Q6H PRN Administration Pain, Mild (Pain Scale 1-3) Famotidine 20 mg 11/06/20 21:00 Famotidine 20 Mg Tablet PO BID [facility] Lactated Ringer's 1,000 mls @ 100 mls/hr 11/04/20 15:30 11/06/20 16:26 Lr IVCONT Not Given .Q10H [facility] Lidocaine 1 patch 11/06/20 06:00 11/06/20 05:53 Lidocaine 4 % Patch Adh..Patch TRANSDERMA 1 patch DAILY@0600 VINAYAK Administration Melatonin 3 mg 11/05/20 21:00 11/05/20 21:00 Melatonin 3 Mg Tablet PO 3 mg BEDTIME VINAYAK Administration Ondansetron HCl 4 mg 11/04/20 15:13 11/06/20 00:24 Ondansetron Hcl 4 Mg/2 Ml Vial IVPUSH 4 mg Q8H PRN Administration Nausea and Vomiting Polyethylene Glycol 17 gm 11/06/20 08:58 Polyethylene Glycol 3350 17 Gm Powd.Pack PO DAILY PRN constipation Sodium Chloride 3 ml 11/04/20 16:00 11/06/20 16:26 0.9 % Sodium Chloride Flush 3 Ml Syringe IVFLUSH Not Given QSHIFT [facility] Labs CBC & Chem 7: 11/05/20 06:58 11/06/20 10:34 Labs: Laboratory Results - last 24 hr 11/06/20 10:34 Sodium 132 L Potassium 3.6 Chloride 90 L Carbon Dioxide 29 Anion Gap 17 BUN 27 H Creatinine 1.56 H Estim Creat Clear Calc 67.0 Estimated GFR 53 Random Glucose 145 H D Calcium 10.0 Microbiology Microbiology Results: Microbiology 11/04/20 Unknown Urine clean catch - Clean Catch Midstream Urine Culture - Final Assessment and Plan (1) Cannabinoid hyperemesis syndrome: Status: Acute (2) Nausea & vomiting: Status: Acute (3) Renal failure, acute: Status: Acute Assessment and Plan: hospital d#3 30yo M admitted for JOSE due to N/V likely from cannabinoid hyperemesis syndrome # JOSE, prerenal - improving after IV fluid hydration # cannabinoid hyperemesis syndrome # cocaine abuse - continue famotidine, ondanestron prn - counseled sobriety - CARE team consultation # dispo - home when taking POs
[2020-11-06 20:00] VITALS: BP 140/81; PULSE 98; RESP 20; TEMP 36.6; O2SAT 100
[2020-11-06] MEDS: Melatonin 3 MG TABLET PO (21:02)
[2020-11-06] MEDS: Famotidine 20 MG TABLET PO (21:02)
[2020-11-06 23:50] VITALS: BP 160/82; PULSE 82; RESP 20; TEMP 36.7; O2SAT 96
[2020-11-07 04:00] VITALS: BP 132/85; PULSE 90; RESP 20; TEMP 36.1; O2SAT 96
[2020-11-07] MEDS: traMADoL HCL 50 MG TABLET PO (04:27)
[2020-11-07] MEDS: Lidocaine 4 % Patch ADH..PATCH 1 PATCH TRANSDERMA (07:14)
[2020-11-07] MEDS: Famotidine 20 MG TABLET PO (07:48)
[2020-11-07 07:51] VITALS: BP 147/92; PULSE 105; RESP 16; TEMP 36.7; O2SAT 98
--- NOTE | 2020-11-07 12:16 | P.DS_ITS ---
DS: Providers Provider Date of admission: 11/04/20 13:46 Primary care physician: Carina physician Consults: 11/04/20 15:13 Consult to Gastroenterology Routine Consulting Provider: Ann-Marie Ribeiro Reason for consultation: intractable nausea and vomiting, abd pain Has provider been notified: No 11/05/20 08:48 Consult to Care Team Routine Comment: Reason for consultation: reaedmissins sec to nausea and vommiting with cont use f ccaine and mariju 11/05/20 11:25 Consult to Care Team Routine Comment: Reason for consultation: cacaine use 11/06/20 08:58 Consult to Care Team Stat Comment: Reason for consultation: cannabis + cocaine abuse DS: Diagnosis Discharge Diagnosis (1) Cannabinoid hyperemesis syndrome: Status: Acute (2) Nausea & vomiting: Status: Acute (3) Renal failure, acute: Status: Acute (4) Cocaine abuse: Status: Acute DS: Medications Discharge Medications Home Medications: Previous Rx's Medication Instructions Recorded famotidine 20 mg PO BID PRN 30 Days #60 tab 11/07/20 ondansetron 4 mg PO Q6H PRN #30 tab 11/07/20 DS: Summary Hospital Course Hospital Course: from admission history and physical by hospitalist BUSINESS CHANGE MANAGER Mehnaz Garcia, 11/04/20: 30 year old man presenting with nausea and vomiting over the last 3 days with sharp abdominal pain. He has a history of marijuana induced cyclical vomiting syndrome. He reports smoking marijuana on a daily basis. He reported that he has been vomiting and has not been eating and drinking. He also reported less urination. He denied fever, chills, recent travel or improperly cooked foods. Vital signs stable. Creatinine elevated at 6.38. Leukocytosis noted. He was given antiemetics and IV fluids. He will be admitted for JOSE and intractable nausea and vomiting The patient was admitted to the medical/surgical floor. JOSE was attributed to hypoperfusion from dehydration and cocaine abuse. His creatinine improved rapidly after IV fluids hydration. He was counseled to avoid cannabis as well as cocaine but declined in-depth counseling by the substance abuse team. He was discharged home once he tolerated solid diet with instructions to repeat a BMP check in 1 week, to avoid cannabis and cocaine and all substances of abuse, and to establish primary care as soon as possible at [facility], where he is already seen for dental care. Time Spent with Patient Time attestation: Total time spent providing and/or coordinating discharge services: 35 Physical Exam Vital Signs: Vital Signs: Last Vital Signs Temp 98.0 F 11/07/20 07:51 Pulse 105 H 11/07/20 07:51 Resp 16 11/07/20 07:51 BP 147/92 H 11/07/20 07:51 Pulse Ox 98 11/07/20 07:51 Body Mass Index 30.0 Gen: in no acute distress HEENT: sclera anicteric, moist mucus membranes Neck: supple Lungs: clear to auscultation bilaterally Heart: regular rate and rhythm, no murmurs Abd: soft, non-tender, non-distended Ext: no edema Skin: warm/well-perfused Neuro: alert and oriented x3, no focal findings Psych: appropriate affect DS: Data Data Completed and Pending Labs on day of discharge: Laboratory Tests 11/04/20 11/04/20 11/04/20 10:11 10:11 11:04 WBC 21.4 H RBC 6.29 H Hgb 16.9 Hct 50.4 MCV 80.1 MCH 26.9 L MCHC 33.5 RDW 13.1 Plt Count 325 D MPV 10.9 Immature Gran % (Auto) 0.5 H Neut % (Auto) 85.4 H Lymph % (Auto) 6.7 L [place] % (Auto) 7.2 Eos % (Auto) 0.0 Baso % (Auto) 0.2 Lymph # (Auto) 1.4 [place] # (Auto) 1.5 H Eos # (Auto) 0.0 Baso # (Auto) 0.1 Abs Immat Gran (auto) 0.10 H Absolute Neuts (auto) 18.3 H Absolute Nucleated RBC 0.000 Nucleated RBC % (auto) 0.0 Smear Tech's Comments VERIFIED Sodium 133 L 136 Potassium 4.0 3.7 Chloride 89 L 90 L Carbon Dioxide 20 L 26 Anion Gap 28 H 24 H BUN 38 H D 38 H Creatinine 6.38 H* 5.89 H* Estim Creat Clear Calc 16.4 17.7 Estimated GFR 10 11 Random Glucose 167 H 159 H Calcium 11.3 H D 10.1 D Total Bilirubin 0.6 0.6 Direct Bilirubin 0.3 AST 36 D 28 ALT 26 21 Alkaline Phosphatase 92 D 83 Total Protein 10.0 H D 8.6 H Albumin 6.4 H 5.7 H Lipase 5 L Urine Color Urine Appearance Urine pH Ur Specific [place] Urine Protein Urine Glucose (UA) Urine Ketones Urine Blood Urine Nitrite Ur Leukocyte Esterase Urine RBC Urine WBC Ur Squamous Epith Cells Urine Bacteria Hyaline Casts Urine Mucus COVID-19 (JERRY) COVID-19 Clin Com 11/04/20 11/04/20 11/04/20 12:12 16:44 16:44 WBC RBC Hgb Hct MCV MCH MCHC RDW Plt Count MPV Immature Gran % (Auto) Neut % (Auto) Lymph % (Auto) [place] % (Auto) Eos % (Auto) Baso % (Auto) Lymph # (Auto) [place] # (Auto) Eos # (Auto) Baso # (Auto) Abs Immat Gran (auto) Absolute Neuts (auto) Absolute Nucleated RBC Nucleated RBC % (auto) Smear Tech's Comments Sodium 136 Potassium 3.4 Chloride 94 L Carbon Dioxide 28 Anion Gap 17 BUN 34 H Creatinine 3.54 H Estim Creat Clear Calc 29.5 Estimated GFR 21 Random Glucose 129 H Calcium 9.5 Total Bilirubin Direct Bilirubin AST ALT Alkaline Phosphatase Total Protein Albumin Lipase Urine Color YELLOW Urine Appearance CLEAR Urine pH 5.5 Ur Specific [place] >= 1.030 H Urine Protein 1+ H Urine Glucose (UA) NEG Urine Ketones NEG Urine Blood 2+ H Urine Nitrite NEG Ur Leukocyte Esterase NEG Urine RBC 1-4 Urine WBC 5-9 H Ur Squamous Epith Cells 3+ Urine Bacteria NONE Hyaline Casts 5-9 Urine Mucus 1+ COVID-19 (JERRY) Negative COVID-19 Clin Com See Note 11/04/20 11/05/20 11/05/20 20:06 06:58 06:58 WBC 13.7 H RBC 5.44 Hgb 14.5 Hct 43.9 MCV 80.7 MCH 26.7 L MCHC 33.0 RDW 12.8 Plt Count 252 MPV 11.1 Immature Gran % (Auto) 0.4 Neut % (Auto) 73.5 H Lymph % (Auto) 17.2 L [place] % (Auto) 8.7 Eos % (Auto) 0.1 Baso % (Auto) 0.1 Lymph # (Auto) 2.4 [place] # (Auto) 1.2 Eos # (Auto) 0.0 Baso # (Auto) 0.0 Abs Immat Gran (auto) 0.05 H Absolute Neuts (auto) 10.1 H Absolute Nucleated RBC 0.000 Nucleated RBC % (auto) 0.0 Smear Tech's Comments Sodium 138 136 Potassium 3.5 3.6 Chloride 94 L 95 L Carbon Dioxide 30 H 27 Anion Gap 18 18 BUN 33 H 30 H Creatinine 2.82 H 1.64 H Estim Creat Clear Calc 37.1 63.8 Estimated GFR 27 50 Random Glucose 119 H 105 Calcium 9.5 9.9 Total Bilirubin Direct Bilirubin AST ALT Alkaline Phosphatase Total Protein Albumin Lipase Urine Color Urine Appearance Urine pH Ur Specific [place] Urine Protein Urine Glucose (UA) Urine Ketones Urine Blood Urine Nitrite Ur Leukocyte Esterase Urine RBC Urine WBC Ur Squamous Epith Cells Urine Bacteria Hyaline Casts Urine Mucus COVID-19 (JERRY) COVID-19 [employer] Com 11/06/20 10:34 WBC RBC Hgb Hct MCV MCH MCHC RDW Plt Count MPV Immature Gran % (Auto) Neut % (Auto) Lymph % (Auto) [place] % (Auto) Eos % (Auto) Baso % (Auto) Lymph # (Auto) [place] # (Auto) Eos # (Auto) Baso # (Auto) Abs Immat Gran (auto) Absolute Neuts (auto) Absolute Nucleated RBC Nucleated RBC % (auto) Smear Tech's Comments Sodium 132 L Potassium 3.6 Chloride 90 L Carbon Dioxide 29 Anion Gap 17 BUN 27 H Creatinine 1.56 H Estim Creat Clear Calc 67.0 Estimated GFR 53 Random Glucose 145 H D Calcium 10.0 Total Bilirubin Direct Bilirubin AST ALT Alkaline Phosphatase Total Protein Albumin Lipase Urine Color Urine Appearance Urine pH Ur Specific [place] Urine Protein Urine Glucose (UA) Urine Ketones Urine Blood Urine Nitrite Ur Leukocyte Esterase Urine RBC Urine WBC Ur Squamous Epith Cells Urine Bacteria Hyaline Casts Urine Mucus COVID-19 (JERRY) COVID-19 Clin Com ITS Impressions Chest X-Ray 11/04/20 09:50 IMPRESSION: Unremarkable examination. No radiographic evidence of free air. Renal Ultrasound 11/04/20 12:33 IMPRESSION: Unremarkable renal ultrasound. Discharge Plan Discharge Anticipated Discharge Date/Time: 11/07/20 12:05 Patient Disposition: Home, Self-Care Referrals: [place],[facility] [Physician] - (needs PCP ) Discharge Medications: New famotidine 20 mg Tablet 20 mg PO BID PRN (Reason: Acid Reflux) 30 Days Qty: 60 RF: 0 ondansetron 4 mg tablet,disintegrating 4 mg PO Q6H PRN (Reason: nausea/vomiting) Qty: 30 RF: 0 Discharge Orders: Discharge Order (Routine); Ordered 11/07/20 Ordered By: Ishaan Brian Diet: advance to usual diet Activity on Discharge: no drug us Patient Instructions: Acute Kidney Injury (DC), Cocaine Abuse (DC), Cannabis Abuse (DC) Stand Alone Forms: Community Support Other Ambulatory Orders: Basic Metabolic Panel (Routine) Timeframe: 1 Week Facility: [facility] - Location: Laboratory Ordered By: Ishaan Brian Visit Report Forms: Patient Portal Discharge page Care Plan Goals: resolution of abdominal pain, nausea, and vomiting; normalization of kidney function Health Concerns: cannabinoid hyperemesis syndrome; cocaine abuse; acute kidney injury Plan of Treatment: avoid all marijuana, cocaine, and other substances of abuse recheck lab work [basic metabolic panel, non-fasting] in 1 week establish primary care at [facility]- call [phone] for appointment as soon as possible take famotidine + ondansetron as needed for relief of symptoms
--- NOTE | 2020-11-07 14:29 | MHC.CM.PN ---
Addendum entered by Esther Ornelas RN 11/07/20 14:34: CM SPOKE WITH PT AND GAVE HIM INFO ON HIS PCP, PT REPORTS HE CAN CALL FOR FOLLOW-UP APPT. Original Note: PT DISCHARGED HOME SELF-CARE WITH FAMILY FOR TRANSPORT, PT DENIED NEED FOR FURTHER TX AND REPORTED NO ANTICIPATED NEEDS ONCE HOME. [facility]BLES VERIFIED PT'S PCP PEDRO SCHILLING NP, WILL NOTIFY PT.
== END 2020-11-07 12:41 | disposition home or self-care (01) | DRG 812 ==
LOC: HO.ED 12:51 → HO.S3 19:02
PROVIDERS: Nurse Practitioner Acute Care; Physician Assistant Medical; Admitting Provider Internal Medicine; Emergency Provider Emergency Medicine; PCP Nurse Practitioner Primary Care; Visit Provider Family Medicine
DX: T40.7X1A Poisoning by cannabis (derivatives), accidental (unintentional), initial encounter (principal); N17.9 Acute kidney failure, unspecified; E86.0 Dehydration; F14.10 Cocaine abuse, uncomplicated; R11.2 Nausea with vomiting, unspecified; K92.1 Melena; F12.10 Cannabis abuse, uncomplicated; Z20.828 Contact with and (suspected) exposure to other viral communicable diseases; Z79.899 Other long term (current) drug therapy
CPT/HCPCS: 36415; 71046; 76775; 80048; 80053; 80076; 81001; 81003; 83690; 85025; 87086; 87635; 93005; 96361; 96374; 96375; 96376; 99285; J2270; J2405; J2765

== ENCOUNTER 2020-11-07 23:49 | Inpatient (IN) | payer MEDICAID, SELFPAY ==
[2020-11-07 23:59] VITALS: BP 138/101; PULSE 97; RESP 18; TEMP 36.9; O2SAT 99; BMI 27.1
[2020-11-08] VITALS (10 sets, daily range): BP systolic 123–163; BP diastolic 58–103; PULSE 93–106; RESP 16–18; TEMP 36.1–37.1; O2SAT 98–100
--- NOTE | 2020-11-08 00:32 | ED.GENADULT ---
HPI - General Adult General Chief complaint: Abdominal Pain Stated complaint: abd pain Time Seen by Provider: 11/08/20 00:06 Source: patient Mode of arrival: ambulatory Limitations: no limitations History of Present Illness HPI narrative: Patient comes emergency room complaining of vomiting and ongoing diffuse abdominal pain. Patient is known to use cocaine and marijuana. Patient states that he was discharged earlier today from this hospital, patient was here from November 04 through November 07, hospitalized for diffuse abdominal pain and cyclical vomiting. Patient had a CT scan done on November 02, showed no acute disease. Patient states that he went home, tried eating soup, Jell-O, been started vomiting again. Patient states he did not use marijuana or cocaine between his discharge from the hospital on arrival to the emergency room MD complaint: Vomiting Related Data Previous Rx's Medication Instructions Recorded famotidine 20 mg PO BID PRN 30 Days #60 tab 11/07/20 ondansetron 4 mg PO Q6H PRN #30 tab 11/07/20 Allergies Allergy/AdvReac Type Severity Reaction Status Date / Time No Known Allergies Allergy Verified 11/04/20 09:49 [No Known Allergies*] Review of Systems Review of Systems: Constitutional : No Weight loss, No Fever, No Chills, No Night Sweats, No Fatigue, No Malaise ENT/Mouth : No Hearing loss, No Ear Pain, No Nasal Congestion, No Sinus Pain, No Hoarseness, No sore throat, No Rhinorrhea, No Swallowing Difficulty Eyes: No Eye Pain, No Swelling, No Redness, No Foreign Body, No Discharge, No Vision Changes Cardiovascular : No Chest Pain, No SOB, No Dyspnea on Exertion, No Orthopnea, No Edema, No Palpitations Respiratory : No Cough, No Sputum, No Wheezing, No Smoke Exposure, No Dyspnea Gastrointestinal : Complaining of nausea, vomiting, no diarrhea, complaining of constipation, and diffuse abdominal pain Genitourinary : no irregular bleeding, No Dysuria, No Urinary Frequency, No Hematuria, No Urinary Incontinence, No Urgency, No Flank Pain, No Urinary Flow Changes, No Hesitancy Musculoskeletal : No joint pain, No Myalgias, No Joint Swelling Skin : No Skin Lesions, No rash Neuro : No Weakness, No Numbness, No Paresthesias, No Loss of Consciousness, No Dizziness, No Headache Psych : No Anxiety/Panic, No Depression, No SI/HI/AH/VH, No Social Issues, Heme/Lymph: No Bruising, No Bleeding,No Lymphadenopathy Endocrine : No Polyuria, No Polydipsia, No Temperature Intolerance [facility] Past Medical History Medical History (Updated 11/08/20 @ 02:06 by Erlinda Blake MD) Cocaine abuse No known health problems Pneumomediastinum Pneumothorax Social History Social History (Updated 11/04/20 @ 13:38 by Mehnaz Garcia NP) Household Members: Friend(s) Housing: Apartment Alcohol intake: current Alcohol intake frequency: a few times a week Alcohol type: wine Smoking Status: Never smoker Tobacco Type: Cigarette Use of substances other than those prescribed or required for medical reasons: Yes Substance Use Type: Crack/Cocaine and Marijuana Substance Use Frequency: Daily Last Used Substance: Weeks (ago) Advance Directives: No Physical Exam Vital Signs: Vital Signs: Last Vital Signs Temp 98.5 F 11/07/20 23:59 Pulse 97 11/07/20 23:59 Resp 18 11/07/20 23:59 BP 138/101 H 11/07/20 23:59 Pulse Ox 99 11/07/20 23:59 Body Mass Index 27.1 Course Course Course Narrative: Patient continues vomiting, he is doing better after a dose of Haldol, however his still complaining of abdominal pain. Patient's creatinine function is still elevated at 1.83, it has improved since his initial admission, however his baseline is approximately 1.3. Medical Decision Making Lab Data Result diagrams: 11/08/20 00:48 11/08/20 00:48 Labs: Lab Results 11/08/20 11/08/20 11/08/20 Range/Units 00:48 00:48 00:48 WBC 13.1 H (4.8-10.8) X10*3/uL RBC 6.07 H (4.60-5.80) X10*6/uL Hgb 16.2 (14.0-18.0) g/dl Hct 47.8 (42-52) % MCV 78.7 L (80-98) fL MCH 26.7 L (27.0-33.0) pg MCHC 33.9 (31.0-36.0) g/dl RDW 12.1 (11.0-16.0) % Plt Count 346 D (160-400) X10*3/uL MPV 10.8 (9.4-12.4) fL Immature Gran % (Auto) 0.4 (0.0-0.4) % Neut % (Auto) 75.8 H (45-73) % Lymph % (Auto) 13.4 L (20-40) % [place] % (Auto) 10.2 (2-11) % Eos % (Auto) 0.0 (0-4) % Baso % (Auto) 0.2 (0-2) % Lymph # (Auto) 1.8 (1.2-4.9) X10*3/uL [place] # (Auto) 1.3 H (0.1-1.2) X10*3/uL Eos # (Auto) 0.0 (0.0-0.4) X10*3/uL Baso # (Auto) 0.0 (0.0-0.2) X10*3/uL Abs Immat Gran (auto) 0.05 H (0.00-0.03) X10*3/uL Absolute Neuts (auto) 9.9 H (2.0-8.3) X10*3/uL Absolute Nucleated RBC 0.000 (0.0-0.012) X10*3/uL Nucleated RBC % (auto) 0.0 (0.0-0.2) /100WBC Sodium 132 L (135-145) mmol/L Potassium 3.2 L (3.3-5.1) mmol/l Chloride 85 L (96-108) mmol/L Carbon Dioxide 27 (22-29) mmol/L Anion Gap 23 H (12-20) BUN 33 H (9-16) mg/dL Creatinine 1.83 H (0.5-1.4) mg/dL Estim Creat Clear Calc 56.5 Estimated GFR 44 Random Glucose 126 H (60-115) mg/dL Calcium 10.5 H (8.4-10.2) mg/dL Total Bilirubin 1.3 H (0.0-1.0) mg/dL Direct Bilirubin 0.5 (0.0-0.5) mg/dL AST 46 H D (5-37) U/L ALT 53 H (0-40) U/L Alkaline Phosphatase 82 (39-117) U/L Total Protein 8.8 H (6.5-8.0) g/dL Albumin 5.7 H (3.5-5.0) g/dL Lipase 25 (8-78) U/L Ethyl Alcohol mg/dL 11/08/20 Range/Units 00:48 WBC (4.8-10.8) X10*3/uL RBC (4.60-5.80) X10*6/uL Hgb (14.0-18.0) g/dl Hct (42-52) % MCV (80-98) fL MCH (27.0-33.0) pg MCHC (31.0-36.0) g/dl RDW (11.0-16.0) % Plt Count (160-400) X10*3/uL MPV (9.4-12.4) fL Immature Gran % (Auto) (0.0-0.4) % Neut % (Auto) (45-73) % Lymph % (Auto) (20-40) % [place] % (Auto) (2-11) % Eos % (Auto) (0-4) % Baso % (Auto) (0-2) % Lymph # (Auto) (1.2-4.9) X10*3/uL [place] # (Auto) (0.1-1.2) X10*3/uL Eos # (Auto) (0.0-0.4) X10*3/uL Baso # (Auto) (0.0-0.2) X10*3/uL Abs Immat Gran (auto) (0.00-0.03) X10*3/uL Absolute Neuts (auto) (2.0-8.3) X10*3/uL Absolute Nucleated RBC (0.0-0.012) X10*3/uL Nucleated RBC % (auto) (0.0-0.2) /100WBC Sodium (135-145) mmol/L Potassium (3.3-5.1) mmol/l Chloride (96-108) mmol/L Carbon Dioxide (22-29) mmol/L Anion Gap (12-20) BUN (9-16) mg/dL Creatinine (0.5-1.4) mg/dL Estim Creat Clear Calc Estimated GFR Random Glucose (60-115) mg/dL Calcium (8.4-10.2) mg/dL Total Bilirubin (0.0-1.0) mg/dL Direct Bilirubin (0.0-0.5) mg/dL AST (5-37) U/L ALT (0-40) U/L Alkaline Phosphatase (39-117) U/L Total Protein (6.5-8.0) g/dL Albumin (3.5-5.0) g/dL Lipase (8-78) U/L Ethyl Alcohol < 10 mg/dL Discharge Plan Discharge Clinical Impression: Cannabinoid hyperemesis syndrome, Abdominal pain Patient Disposition: Admitted As Inpatient Prescriptions: No Action famotidine 20 mg Tablet 20 mg PO BID PRN (Reason: Acid Reflux) 30 Days Qty: 60 RF: 0 ondansetron 4 mg tablet,disintegrating 4 mg PO Q6H PRN (Reason: nausea/vomiting) Qty: 30 RF: 0
[2020-11-08] MEDS: 0.9 % Sodium Chloride 1,000 ML 999 ML IVCONT (00:53)
[2020-11-08] MEDS: Haloperidol Lactate 5 MG/ML VIAL 2.5 MG IM (00:53)
[2020-11-08] MEDS: ondansetron HCL 4 MG/2 ML VIAL IVPUSH ×2 (00:53→08:09)
[2020-11-08 00:57] LABS: Basophils Percent Auto 0.2 % (0-2); Hematocrit 47.8 % (42-52); Hemoglobin 16.2 g/dl (14.0-18.0); Imm Gran Abs Auto 0.05 X10*3/uL (0.00-0.03); Imm Gran Pct Auto 0.4 % (0.0-0.4); Lymphocytes Absolute Auto 1.8 X10*3/uL (1.2-4.9); Lymphocytes Percent Auto 13.4 % (20-40); MANUAL DIFF FLAG NO; Mean Corpuscular HGB Conc 33.9 g/dl (31.0-36.0); Mean Corpuscular Hemoglobin 26.7 pg (27.0-33.0); Mean Corpuscular Volume 78.7 fL (80-98); Mean Platelet Volume 10.8 fL (9.4-12.4); Monocytes Absolute Auto 1.3 X10*3/uL (0.1-1.2); Monocytes Percent Auto 10.2 % (2-11); Neutrophils Absolute Auto 9.9 X10*3/uL (2.0-8.3); Neutrophils Percent Auto 75.8 % (45-73); Platelet Count 346 X10*3/uL (160-400); Red Blood Count 6.07 X10*6/uL (4.60-5.80); Red Cell Distribution Width 12.1 % (11.0-16.0); White Blood Count 13.1 X10*3/uL (4.8-10.8)
--- NOTE | 2020-11-08 00:57 | PC.NURSE ---
20g l ac pt anne well no complications
[2020-11-08 01:26] LABS: Ethanol < 10 mg/dL
[2020-11-08 01:28] LABS: Alanine Aminotransferase 53 U/L (0-40); Albumin Level 5.7 g/dL (3.5-5.0); Alkaline Phosphatase 82 U/L (39-117); Aspartate Amino Transferase 46 U/L (5-37); Bilirubin Direct 0.5 mg/dL (0.0-0.5); Bilirubin Total 1.3 mg/dL (0.0-1.0); Lipase 25 U/L (8-78); Total Protein 8.8 g/dL (6.5-8.0)
[2020-11-08 01:41] LABS: Anion Gap 23 (12-20); Blood Urea Nitrogen 33 mg/dL (9-16); Calcium 10.5 mg/dL (8.4-10.2); Carbon Dioxide 27 mmol/L (22-29); Chloride 85 mmol/L (96-108); Creatinine Clr Calc Pharmacy 56.5; Estimated Glomerular Filt Rate 44; Glucose Random 126 mg/dL (60-115); Potassium 3.2 mmol/l (3.3-5.1); Sodium 132 mmol/L (135-145)
[2020-11-08 02:30] LABS: Glucose Urine UA NEG (NEG); Leukocyte Esterase Urine NEG (NEG); Nitrite Urine NEG (NEG); Specific Gravity - Urine >= 1.030 (1.005-1.025); Urine Blood TRACE (NEG); Urine Ketones 5 MG/DL (NEG); Urine Protein 2+ MG/DL (NEG-TRACE)
[2020-11-08 02:31] LABS: Appearance Urine TURBID; Color Urine YELLOW
[2020-11-08 02:37] LABS: Amorphous Sediment Urine 2+ /LPF; RBC Urine 0-2 /HPF (0); WBC Urine 0-2 /HPF (0-4)
[2020-11-08 03:01] LABS: Amphetamine Screen Urine Not Detected (Not Detect); Barbiturates, Urine Not Detected (Not Detect); Benzodiazepines Screen Urine Not Detected (Not Detect); Cannabinoid Screen Urine POSITIVE (Not Detect); Cocaine Screen Urine Not Detected (Not Detect); Opiate Screen Urine POSITIVE (Not Detect); Phencyclidine Screen Urine Not Detected (Not Detect)
--- NOTE | 2020-11-08 04:46 | P.HPHOSP_ITS ---
History of Present Illness Date of Service: 11/08/20 Chief Complaint: Abdominal pain, nausea vomiting This is a 30-year-old male with past medical history of cocaine abuse, as well as marijuana do cyclic vomiting who presents to the hospital with complaints of non resolving nausea and vomiting. Patient is very somnolent and very hard to arouse after receiving Haldol for intractable nausea and vomiting in the ED. therefore history is obtained mostly from ED physician Of note Patient was discharged from the hospital on 11/07 after being managed for intractable nausea vomiting from 11/04-11/07. He returns today stating that his symptoms never resolved and he is continuously having nausea and vomiting since being discharged. He denied having any fever, chills, no abdominal pain, no diarrhea constipation. No urinary symptoms and no lower extremity edema. Patient received multiple rounds of antiemetics, as well as Haldol To the ED hemodynamically stable with a heart rate of 105, temp of 98.0?, respiratory rate of 16, blood pressure of 147/92, satting 98% on room air Labs are significant for WBC count of 13.1 from recent, hemoglobin of 6.2, hematocrit 47.8, sodium of 132, potassium 3.2, BUN of 33, creatinine of 1.83 which has increased since discharge, a slightly elevated AST of 46, ALT of 53, UA negative, UDS positive for opioids, as well as marijuana. History is obtained mostly from chart Past medical history: Cocaine abuse, marijuana induced cyclic vomiting syndrome Past surgical history: Denies Family history: Denies Social history: Comes from home, daily smoker, denies alcohol use, uses crack cocaine and marijuana Review of Systems Review of Systems: Yes Unobtainable due to mental condition (Patient too somnolent to give any history) [facility]LY [facility], [facility] Medical History Cocaine abuse No known health problems Pneumomediastinum Pneumothorax Social History (Updated 11/04/20 @ 13:38 by Mehnaz Garcia NP) Household Members: Friend(s) Housing: Apartment Alcohol intake: current Alcohol intake frequency: a few times a week Alcohol type: wine Smoking Status: Never smoker Tobacco Type: Cigarette Use of substances other than those prescribed or required for medical reasons: Yes Substance Use Type: Crack/Cocaine and Marijuana Substance Use Frequency: Daily Last Used Substance: Weeks (ago) Advance Directives: No Meds Allergies Allergy/AdvReac Type Severity Reaction Status Date / Time No Known Allergies Allergy Verified 11/04/20 09:49 [No Known Allergies*] Physical Exam Vital Signs and Narrative: Vital Signs: Last Vital Signs Temp 98.7 F 11/08/20 02:44 Pulse 95 11/08/20 02:44 Resp 16 11/08/20 02:44 BP 153/103 H 11/08/20 02:44 Pulse Ox 98 11/08/20 02:44 Body Mass Index 27.1 Const: Other: Somnolent, arousable but does not stay up long enough to answer any questions General: no acute distress Eyes: General: appearance normal, both eyes and all related structures Resp: Effort & Inspection: normal respiratory effort and able to speak in complete sentences Cardio: Rate: regular rate Rhythm: regular rhythm GI: Palpation (GI): Soft to palpation Auscultation: normal bowel sounds Skin: General skin exam: no rashes or lesions noted Neuro: Cognition (Neuro): normal cognition Extrem: General: Yes normal to inspection and Yes no pedal edema Results Labs CBC and Chem 7: 11/08/20 00:48 11/08/20 00:48 Labs: Laboratory Results - last 24 hr 11/08/20 11/08/20 11/08/20 00:48 00:48 00:48 MCV 78.7 L MCH 26.7 L MCHC 33.9 RDW 12.1 Plt Count 346 D MPV 10.8 Immature Gran % (Auto) 0.4 Neut % (Auto) 75.8 H Lymph % (Auto) 13.4 L [place] % (Auto) 10.2 Eos % (Auto) 0.0 Baso % (Auto) 0.2 Lymph # (Auto) 1.8 [place] # (Auto) 1.3 H Eos # (Auto) 0.0 Baso # (Auto) 0.0 Abs Immat Gran (auto) 0.05 H Absolute Neuts (auto) 9.9 H Absolute Nucleated RBC 0.000 Nucleated RBC % (auto) 0.0 Anion Gap 23 H Estim Creat Clear Calc 56.5 Estimated GFR 44 Random Glucose 126 H Calcium 10.5 H Total Bilirubin 1.3 H Direct Bilirubin 0.5 AST 46 H D ALT 53 H Alkaline Phosphatase 82 Total Protein 8.8 H Albumin 5.7 H Lipase 25 Urine Color Urine Appearance Urine pH Ur Specific [place] Urine Protein Urine Glucose (UA) Urine Ketones Urine Blood Urine Nitrite Ur Leukocyte Esterase Urine RBC Urine WBC Ur Squamous Epith Cells Amorphous Sediment Urine Bacteria Urine Opiates Screen Ur Barbiturates Screen Ur Phencyclidine Scrn Ur Amphetamines Screen U Benzodiazepines Scrn Urine Cocaine Screen U Marijuana (THC) Screen Ethyl Alcohol 11/08/20 11/08/20 11/08/20 00:48 02:17 02:17 MCV MCH MCHC RDW Plt Count MPV Immature Gran % (Auto) Neut % (Auto) Lymph % (Auto) [place] % (Auto) Eos % (Auto) Baso % (Auto) Lymph # (Auto) [place] # (Auto) Eos # (Auto) Baso # (Auto) Abs Immat Gran (auto) Absolute Neuts (auto) Absolute Nucleated RBC Nucleated RBC % (auto) Anion Gap Estim Creat Clear Calc Estimated GFR Random Glucose Calcium Total Bilirubin Direct Bilirubin AST ALT Alkaline Phosphatase Total Protein Albumin Lipase Urine Color YELLOW Urine Appearance TURBID Urine pH 5.0 Ur Specific [place] >= 1.030 H Urine Protein 2+ H Urine Glucose (UA) NEG Urine Ketones 5 Urine Blood TRACE Urine Nitrite NEG Ur Leukocyte Esterase NEG Urine RBC 0-2 Urine WBC 0-2 Ur Squamous Epith Cells NONE Amorphous Sediment 2+ Urine Bacteria NONE Urine Opiates Screen POSITIVE H Ur Barbiturates Screen Not Detected Ur Phencyclidine Scrn Not Detected Ur Amphetamines Screen Not Detected U Benzodiazepines Scrn Not Detected Urine Cocaine Screen Not Detected U Marijuana (THC) Screen POSITIVE H Ethyl Alcohol < 10 Assessment and Plan (1) Intractable nausea and vomiting: Status: Acute (2) Cannabinoid hyperemesis syndrome: Status: Acute (3) Renal failure, acute: Qualifiers: Acute renal failure type: unspecified Qualified Code(s): N17.9 - Acute kidney failure, unspecified Status: Acute This is a 30-year-old male with past medical history of cannabinoid hyperemesis syndrome who presents to the hospital with intractable nausea vomiting after being discharged from the hospital the day prior # intractable nausea vomiting - possibly secondary to marijuana use, versus viral gastroenteritis less likely - patient received multiple rounds of antiemetics with no resolution and reports that even on the story is his symptoms had never resolved Plan: - Pablo Elmore p.r.n. - IV fluids - supportive measures # JOSE -creatinine is 1.83, baseline around 1.3 - it had improved through will remove sick the day prior to discharge - most likely due to hydration and vomiting - will start him on IV fluids - follow BMP # hypokalemia - secondary to vomiting - will replete and follow BMP DVT prophylaxis: Heparin subQ
[2020-11-08] MEDS: Potassium Chloride/H20 10 MEQ/100 ML PIGGYBACK 100 MEQ IV ×3 (05:46→08:08)
[2020-11-08] MEDS: 0.9 % Sodium Chloride 1,000 ML 100 ML IVCONT ×2 (05:46→14:19)
[2020-11-08 06:58] LABS: COVID-19 Test Negative (Negative); IDNOW Serial# 9DD0AD1C
[2020-11-08] MEDS: Acetaminophen 325 MG TABLET 650 MG PO (08:08)
--- NOTE | 2020-11-08 08:10 | PC.NURSE ---
medicated as ordered, reports abd pain, medicated w apap, hot blankets given
[2020-11-08] MEDS: 0.9 % Sodium Chloride Flush 3 ML SYRINGE IVFLUSH (09:54)
--- NOTE | 2020-11-08 12:07 | MHC.CM.PN ---
PT WILL DISCHARGE HOME SELF-CARE, PT HAS [employer]BER FOR TRANSPORT. CM MET WITH PT WHO IS ALERT & ORIENTED, PT DENIES USING MARIJUANA AFTER DISCHARGE ON 11/07/20 AND REPORTS HE WAS STILL NOT FEELING WELL WHEN HE LEFT, PT REPORTS NOT BEING ABLE TO HOLD DOWN FLUIDS OR FOOD AFTER D/C, PT REPORTS HE HAD HIS GIRL FRIEND GET RID OF ANY WEED IN THE APARTMENT, PT MET WITH CARE TEAM AND CM AND DENIES NEED FOR TX OR THERAPY AND REPORTS HE CAN MANAGE ON HIS OWN, PT DOES REPORT HE HAS NOT SMOKED IN ONE WEEK, CM UNSURE HOW RELIABLE PT IS. PT DOES REPORT HE HAS AN APPOINTMENT WITH HIS PCP PEDRO SCHILLING NP ON FRIDAY AT 2:30PM AND WAS ENCOURAGED TO TALK TO HIM/HER ABOUT WHY HE WAS IN THE HOSPITAL AND THAT HE SHOULD ASK FOR SOMETHING FOR SLEEP AND/OR ANXIETY IF HE NEEDS. PT DOES REPORT WHEN HE INITIALLY STARTED SMOKING MARIJUANA IT WAS TO HELP HIM SLEEP. PT DID REQUEST MEDICATION FOR WHILE HE WAS IN THE HOSPITAL AND CM NOTIFIED PTS NURSE. CM WILL CONTINUE TO FOLLOW FOR ANT CHANGE IN DISCHARGE NEEDS.
--- NOTE | 2020-11-08 15:58 | HO.PM.IMPN ---
Subjective Subjective Date of Service: 11/08/20 Interval History: Ongoing abd pain/nausea/vomiting. No fever. Denies drug use since discharge home yesterday. Physical Exam Vital Signs: Vital Signs: Last Vital Signs Temp 97.0 F 11/08/20 15:24 Pulse 96 11/08/20 15:24 Resp 18 11/08/20 15:24 BP 140/58 H 11/08/20 15:24 Pulse Ox 99 11/08/20 15:24 Body Mass Index 27.1 Gen: in no acute distress HEENT: sclera anicteric, moist mucus membranes Neck: supple Lungs: clear to auscultation bilaterally Heart: regular rate and rhythm, no murmurs Abd: soft, non-tender, non-distended Ext: no edema Skin: warm/well-perfused Neuro: alert and oriented x3, no focal findings Psych: appropriate affect Objective Data Current Medications Generic Name Dose Route Start Last Admin Trade Name Freq PRN Reason Stop Dose Admin Acetaminophen 650 mg 11/08/20 07:54 11/08/20 08:08 Acetaminophen 325 Mg Tablet PO 650 mg Q6H PRN Administration Pain, Mild (Pain Scale 1-3) Docusate Sodium 100 mg 11/08/20 07:54 Docusate Sodium 100 Mg Capsule PO DAILY PRN Constipation Heparin Sodium (Porcine) 5,000 unit 11/08/20 08:00 11/08/20 09:54 Heparin Sodium,Porcine 5,000 Unit/Ml Vial SUBCUT Not Given Q12H VINAYAK Sodium Chloride 1,000 mls @ 100 mls/hr 11/08/20 05:00 11/08/20 14:19 Ns IVCONT 100 mls/hr .Q10H VINAYAK Administration Ondansetron HCl 4 mg 11/08/20 07:54 11/08/20 08:09 Ondansetron Hcl 4 Mg/2 Ml Vial IVPUSH 4 mg Q8H PRN Administration Nausea and Vomiting Sodium Chloride 3 ml 11/08/20 08:00 11/08/20 15:58 0.9 % Sodium Chloride Flush 3 Ml Syringe IVFLUSH Not Given QSHIFT [facility] Labs CBC & Chem 7: 11/08/20 00:48 11/08/20 00:48 Labs: Laboratory Results - last 24 hr 11/08/20 11/08/20 11/08/20 00:48 00:48 00:48 WBC 13.1 H RBC 6.07 H Hgb 16.2 Hct 47.8 MCV 78.7 L MCH 26.7 L MCHC 33.9 RDW 12.1 Plt Count 346 D MPV 10.8 Immature Gran % (Auto) 0.4 Neut % (Auto) 75.8 H Lymph % (Auto) 13.4 L [place] % (Auto) 10.2 Eos % (Auto) 0.0 Baso % (Auto) 0.2 Lymph # (Auto) 1.8 [place] # (Auto) 1.3 H Eos # (Auto) 0.0 Baso # (Auto) 0.0 Abs Immat Gran (auto) 0.05 H Absolute Neuts (auto) 9.9 H Absolute Nucleated RBC 0.000 Nucleated RBC % (auto) 0.0 Sodium 132 L Potassium 3.2 L Chloride 85 L Carbon Dioxide 27 Anion Gap 23 H BUN 33 H Creatinine 1.83 H Estim Creat Clear Calc 56.5 Estimated GFR 44 Random Glucose 126 H Calcium 10.5 H Total Bilirubin 1.3 H Direct Bilirubin 0.5 AST 46 H D ALT 53 H Alkaline Phosphatase 82 Total Protein 8.8 H Albumin 5.7 H Lipase 25 Urine Color Urine Appearance Urine pH Ur Specific [place] Urine Protein Urine Glucose (UA) Urine Ketones Urine Blood Urine Nitrite Ur Leukocyte Esterase Urine RBC Urine WBC Ur Squamous Epith Cells Amorphous Sediment Urine Bacteria Urine Opiates Screen Ur Barbiturates Screen Ur Phencyclidine Scrn Ur Amphetamines Screen U Benzodiazepines Scrn Urine Cocaine Screen U Marijuana (THC) Screen Ethyl Alcohol COVID-19 (JERRY) COVID-19 Clin Com 11/08/20 11/08/20 11/08/20 00:48 02:17 02:17 WBC RBC Hgb Hct MCV MCH MCHC RDW Plt Count MPV Immature Gran % (Auto) Neut % (Auto) Lymph % (Auto) [place] % (Auto) Eos % (Auto) Baso % (Auto) Lymph # (Auto) [place] # (Auto) Eos # (Auto) Baso # (Auto) Abs Immat Gran (auto) Absolute Neuts (auto) Absolute Nucleated RBC Nucleated RBC % (auto) Sodium Potassium Chloride Carbon Dioxide Anion Gap BUN Creatinine Estim Creat Clear Calc Estimated GFR Random Glucose Calcium Total Bilirubin Direct Bilirubin AST ALT Alkaline Phosphatase Total Protein Albumin Lipase Urine Color YELLOW Urine Appearance TURBID Urine pH 5.0 Ur Specific [place] >= 1.030 H Urine Protein 2+ H Urine Glucose (UA) NEG Urine Ketones 5 Urine Blood TRACE Urine Nitrite NEG Ur Leukocyte Esterase NEG Urine RBC 0-2 Urine WBC 0-2 Ur Squamous Epith Cells NONE Amorphous Sediment 2+ Urine Bacteria NONE Urine Opiates Screen POSITIVE H Ur Barbiturates Screen Not Detected Ur Phencyclidine Scrn Not Detected Ur Amphetamines Screen Not Detected U Benzodiazepines Scrn Not Detected Urine Cocaine Screen Not Detected U Marijuana (THC) Screen POSITIVE H Ethyl Alcohol < 10 COVID-19 (JERRY) COVID-19 Clin Com 11/08/20 06:29 WBC RBC Hgb Hct MCV MCH MCHC RDW Plt Count MPV Immature Gran % (Auto) Neut % (Auto) Lymph % (Auto) [place] % (Auto) Eos % (Auto) Baso % (Auto) Lymph # (Auto) [place] # (Auto) Eos # (Auto) Baso # (Auto) Abs Immat Gran (auto) Absolute Neuts (auto) Absolute Nucleated RBC Nucleated RBC % (auto) Sodium Potassium Chloride Carbon Dioxide Anion Gap BUN Creatinine Estim Creat Clear Calc Estimated GFR Random Glucose Calcium Total Bilirubin Direct Bilirubin AST ALT Alkaline Phosphatase Total Protein Albumin Lipase Urine Color Urine Appearance Urine pH Ur Specific [place] Urine Protein Urine Glucose (UA) Urine Ketones Urine Blood Urine Nitrite Ur Leukocyte Esterase Urine RBC Urine WBC Ur Squamous Epith Cells Amorphous Sediment Urine Bacteria Urine Opiates Screen Ur Barbiturates Screen Ur Phencyclidine Scrn Ur Amphetamines Screen U Benzodiazepines Scrn Urine Cocaine Screen U Marijuana (THC) Screen Ethyl Alcohol COVID-19 (JERRY) Negative COVID-19 Clin Com See Note Assessment and Plan (1) Cannabinoid hyperemesis syndrome: Status: Acute (2) Nausea & vomiting: Status: Acute (3) Renal failure, acute: Status: Acute Assessment and Plan: hospital d#2 30yo M readmitted with recurrent N/V after admission 11/04-11/07/20 for JOSE and N/V from cannabinoid hyperemesis syndrome + cocaine abuse # JOSE, prerenal - continue IV hydration, avoid nephrotoxins, trend Cr # cannabinoid hyperemesis syndrome # cocaine abuse - ondanestron prn - counseled sobriety # VTE ppx - LMWH
[2020-11-08] MEDS: Enoxaparin Sodium 40 MG/0.4 ML SYRINGE SUBCUT (17:55)
--- NOTE | 2020-11-09 07:27 | P.DS_ITS ---
DS: Providers Provider Date of Service: 11/09/20 Date of admission: 11/08/20 02:12 Primary care physician: No Physician DS: Diagnosis Discharge Diagnosis (1) Cannabinoid hyperemesis syndrome: Status: Acute (2) Nausea & vomiting: Status: Acute (3) Renal failure, acute: Status: Acute DS: Medications Discharge Medications Home Medications: Previous Rx's Medication Instructions Recorded famotidine 20 mg PO BID PRN 30 Days #60 tab 11/07/20 ondansetron 4 mg PO Q6H PRN #30 tab 11/07/20 DS: Summary Hospital Course Hospital Course: from history and physical by admitting hospitalist Guzman Burch, 11/08/20: This is a 30-year-old male with past medical history of cocaine abuse, as well as marijuana do cyclic vomiting who presents to the hospital with complaints of non resolving nausea and vomiting. Patient is very somnolent and very hard to arouse after receiving Haldol for intractable nausea and vomiting in the ED. therefore history is obtained mostly from ED physician Of note Patient was discharged from the hospital on 11/07 after being managed for intractable nausea vomiting from 11/04-11/07. He returns today stating that his symptoms never resolved and he is continuously having nausea and vomiting since being discharged. He denied having any fever, chills, no abdominal pain, no diarrhea constipation. No urinary symptoms and no lower extremity edema. Patient received multiple rounds of antiemetics, as well as Haldol To the ED hemodynamically stable with a heart rate of 105, temp of 98.0?, respiratory rate of 16, blood pressure of 147/92, satting 98% on room air Labs are significant for WBC count of 13.1 from recent, hemoglobin of 6.2, hem atocrit 47.8, sodium of 132, potassium 3.2, BUN of 33, creatinine of 1.83 which has increased since discharge, a slightly elevated AST of 46, ALT of 53, UA negative, UDS positive for opioids, as well as marijuana. The patient was admitted to the medical/surgical floor for IV fluid hydration and antiemetics. However, quite suddenly, he decided to sign out against medical advice on the 1st evening in the hospital, saying he felt better and wanted to go home. He did not wait for formal discharge. Follow-up plan is as per prior discharge summary from 11/07/20: He was counseled to avoid cannabis as well as cocaine but declined in-depth counseling by the substance abuse team. He was discharged home once he tolerated solid diet with instructions to repeat a BMP check in 1 week, to avoid cannabis and cocaine and all substances of abuse, and to establish primary care as soon as possible at [facility], where he is already seen for dental care. Physical Exam Vital Signs: Vital Signs: Last Vital Signs Temp 97.0 F 11/08/20 16:00 Pulse 96 11/08/20 16:00 Resp 18 11/08/20 16:00 BP 140/58 H 11/08/20 16:00 Pulse Ox 99 11/08/20 16:00 Body Mass Index 27.1 DS: Data Data Completed and Pending Labs on day of discharge: 11/08/20 00:22 0.9 % Sodium Chloride [Ns] 1,000 ml IVCONT 999 mls/hr ondansetron HCL [Zofran] 4 mg IVPUSH ONCE ONE 11/08/20 00:25 Haloperidol Lactate [Haldol] 2.5 mg IM ONCE ONE 11/08/20 00:48 Basic Metabolic Panel Stat Complete Blood Count Auto Diff Stat Ethanol Stat Lipase Stat Liver Panel Stat 11/08/20 02:05 Transfer Order Routine 11/08/20 02:06 Code Status Routine 11/08/20 02:17 Drug Screen Urine Stat 11/08/20 05:00 0.9 % Sodium Chloride [Ns] 1,000 ml IVCONT 100 mls/hr Potassium Chloride/H20 10 meq in 100 ml IV Q1H 11/08/20 06:29 COVID-19 ID NOW (Saini) Stat 11/08/20 07:54 Acetaminophen [Tylenol] 650 mg PO Q6H PRN Docusate Sodium [Colace] 100 mg PO DAILY PRN ondansetron HCL [Zofran] 4 mg IVPUSH Q8H PRN 11/08/20 08:00 0.9 % Sodium Chloride Flush [NS Flush] 3 ml IVFLUSH QSHIFT Heparin Sodium,Porcine 5,000 unit SUBCUT Q12H 11/08/20 09:13 IV insert/maintain Q4HR Intake and Output Q8HR Vital Signs Q4HR 11/08/20 17:00 Enoxaparin Sodium [Lovenox] 40 mg SUBCUT Q24H Laboratory Last Values WBC 13.1 X10*3/uL (4.8-10.8) H 11/08/20 00:48 RBC 6.07 X10*6/uL (4.60-5.80) H 11/08/20 00:48 Hgb 16.2 g/dl (14.0-18.0) 11/08/20 00:48 Hct 47.8 % (42-52) 11/08/20 00:48 MCV 78.7 fL (80-98) L 11/08/20 00:48 MCH 26.7 pg (27.0-33.0) L 11/08/20 00:48 MCHC 33.9 g/dl (31.0-36.0) 11/08/20 00:48 RDW 12.1 % (11.0-16.0) 11/08/20 00:48 Plt Count 346 X10*3/uL (160-400) D 11/08/20 00:48 MPV 10.8 fL (9.4-12.4) 11/08/20 00:48 Immature Gran % (Auto) 0.4 % (0.0-0.4) 11/08/20 00:48 Neut % (Auto) 75.8 % (45-73) H 11/08/20 00:48 Lymph % (Auto) 13.4 % (20-40) L 11/08/20 00:48 [place] % (Auto) 10.2 % (2-11) 11/08/20 00:48 Eos % (Auto) 0.0 % (0-4) 11/08/20 00:48 Baso % (Auto) 0.2 % (0-2) 11/08/20 00:48 Lymph # (Auto) 1.8 X10*3/uL (1.2-4.9) 11/08/20 00:48 [place] # (Auto) 1.3 X10*3/uL (0.1-1.2) H 11/08/20 00:48 Eos # (Auto) 0.0 X10*3/uL (0.0-0.4) 11/08/20 00:48 Baso # (Auto) 0.0 X10*3/uL (0.0-0.2) 11/08/20 00:48 Abs Immat Gran (auto) 0.05 X10*3/uL (0.00-0.03) H 11/08/20 00:48 Absolute Neuts (auto) 9.9 X10*3/uL (2.0-8.3) H 11/08/20 00:48 Absolute Nucleated RBC 0.000 X10*3/uL (0.0-0.012) 11/08/20 00:48 Nucleated RBC % (auto) 0.0 /100WBC (0.0-0.2) 11/08/20 00:48 Sodium 132 mmol/L (135-145) L 11/08/20 00:48 Potassium 3.2 mmol/l (3.3-5.1) L 11/08/20 00:48 Chloride 85 mmol/L (96-108) L 11/08/20 00:48 Carbon Dioxide 27 mmol/L (22-29) 11/08/20 00:48 Anion Gap 23 (12-20) H 11/08/20 00:48 BUN 33 mg/dL (9-16) H 11/08/20 00:48 Creatinine 1.83 mg/dL (0.5-1.4) H 11/08/20 00:48 Estim Creat Clear Calc 56.5 11/08/20 00:48 Estimated GFR 44 11/08/20 00:48 Random Glucose 126 mg/dL (60-115) H 11/08/20 00:48 Calcium 10.5 mg/dL (8.4-10.2) H 11/08/20 00:48 Total Bilirubin 1.3 mg/dL (0.0-1.0) H 11/08/20 00:48 Direct Bilirubin 0.5 mg/dL (0.0-0.5) 11/08/20 00:48 AST 46 U/L (5-37) H D 11/08/20 00:48 ALT 53 U/L (0-40) H 11/08/20 00:48 Alkaline Phosphatase 82 U/L (39-117) 11/08/20 00:48 Total Protein 8.8 g/dL (6.5-8.0) H 11/08/20 00:48 Albumin 5.7 g/dL (3.5-5.0) H 11/08/20 00:48 Lipase 25 U/L (8-78) 11/08/20 00:48 Urine Color YELLOW 11/08/20 02:17 Urine Appearance TURBID 11/08/20 02:17 Urine pH 5.0 (5.0-8.0) 11/08/20 02:17 Ur Specific [place] >= 1.030 (1.005-1.025) H 11/08/20 02:17 Urine Protein 2+ MG/DL (NEG-TRACE) H 11/08/20 02:17 Urine Glucose (UA) NEG MG/DL (NEG) 11/08/20 02:17 Urine Ketones 5 MG/DL (NEG) 11/08/20 02:17 Urine Blood TRACE (NEG) 11/08/20 02:17 Urine Nitrite NEG (NEG) 11/08/20 02:17 Ur Leukocyte Esterase NEG (NEG) 11/08/20 02:17 Urine RBC 0-2 /HPF (0) 11/08/20 02:17 Urine WBC 0-2 /HPF (0-4) 11/08/20 02:17 Ur Squamous Epith Cells NONE /LPF 11/08/20 02:17 Amorphous Sediment 2+ /LPF 11/08/20 02:17 Urine Bacteria NONE /LPF 11/08/20 02:17 Urine Opiates Screen POSITIVE (Not Detect) H 11/08/20 02:17 Ur Barbiturates Screen Not Detected (Not Detect) 11/08/20 02:17 Ur Phencyclidine Scrn Not Detected (Not Detect) 11/08/20 02:17 Ur Amphetamines Screen Not Detected (Not Detect) 11/08/20 02:17 U Benzodiazepines Scrn Not Detected (Not Detect) 11/08/20 02:17 Urine Cocaine Screen Not Detected (Not Detect) 11/08/20 02:17 U Marijuana (THC) Screen POSITIVE (Not Detect) H 11/08/20 02:17 Ethyl Alcohol < 10 mg/dL 11/08/20 00:48 COVID-19 (JERRY) Negative (Negative) 11/08/20 06:29 COVID-19 Clin Com See Note 11/08/20 06:29 Discharge Plan Discharge Patient Disposition: Left Against Medical Advice Referrals: Physician,Unknown [Primary Care Provider] - Discharge Medications: No Action famotidine 20 mg Tablet 20 mg PO BID PRN (Reason: Acid Reflux) 30 Days Qty: 60 RF: 0 ondansetron 4 mg tablet,disintegrating 4 mg PO Q6H PRN (Reason: nausea/vomiting) Qty: 30 RF: 0 Discharge Orders: Discharge Order (Routine); Ordered 11/08/20 Ordered By: Ishaan Brian Discharge Date/Time: 11/08/20 18:30 Care Plan Goals: improvement in nausea, vomiting, and abdominal pain Health Concerns: marijuana and cocaine abuse acute kidney injury Plan of Treatment: stop using drugs of abuse repeat basic metabolic panel in 1 week establish primary care as soon as possible
--- NOTE | 2020-11-09 08:25 | MHC.CM.PN ---
CM NOTIFIED PT LEFT AMA ON THE EVENING OF 11/08/20, PT LEFT BEFORE RECEIVING ANY DISCHARGE INSTRUCTIONS OR PAPERWORK. PREVIOUS PLAN WAS FOR PT TO CALL FOR [facility] FOR TRANSPORT. PT ALSO REPORTED HE HAD A FOLLOW-UP APPT WITH HIS PCP PEDRO SCHILLING NP.
== END 2020-11-08 18:30 | disposition left against medical advice (07) | DRG 812 ==
LOC: HO.ED 11-08 02:06 → HO.S3 11-08 07:26
PROVIDERS: Student in an Organized Health Care Education/Training Program; Admitting Provider Internal Medicine; Emergency Provider Emergency Medicine; Visit Provider Family Medicine
DX: T40.7X1A Poisoning by cannabis (derivatives), accidental (unintentional), initial encounter (principal); N17.9 Acute kidney failure, unspecified; R11.2 Nausea with vomiting, unspecified; F14.10 Cocaine abuse, uncomplicated; E87.6 Hypokalemia; Z20.828 Contact with and (suspected) exposure to other viral communicable diseases; Z79.899 Other long term (current) drug therapy
CPT/HCPCS: 36415; 80048; 80076; 80307; 80320; 81001; 83690; 85025; 87635; 96361; 96372; 96374; 99218; 99285; J1650; J2405

== ENCOUNTER 2020-11-09 13:39 | Emergency (ER) | payer MEDICAID, SELFPAY | END 2020-11-09 16:46 | disposition left against medical advice (07) | PROVIDERS: Emergency Provider Emergency Medicine; PCP Nurse Practitioner Primary Care | DX: R10.9 Unspecified abdominal pain (principal); F14.10 Cocaine abuse, uncomplicated; F17.210 Nicotine dependence, cigarettes, uncomplicated ==

== ENCOUNTER 2020-12-02 08:50 | Outpatient (REF) | payer MEDICAID, SELFPAY ==
[2020-12-02 09:44] LABS: Anion Gap 13 (12-20); Blood Urea Nitrogen 17 mg/dL (9-16); Calcium 9.4 mg/dL (8.4-10.2); Carbon Dioxide 25 mmol/L (22-29); Chloride 107 mmol/L (96-108); Estimated Glomerular Filt Rate > 60; Glucose Random 77 mg/dL (60-115); Potassium 4.3 mmol/L (3.3-5.1); Sodium 141 mmol/L (135-145)
== END 2020-12-02 08:51 | disposition home or self-care (01) ==
LOC: HO.LAB 08:50
PROVIDERS: PCP Nurse Practitioner Primary Care; Visit Provider Family Medicine
DX: N17.9 Acute kidney failure, unspecified (principal)
CPT/HCPCS: 36415; 80048

== ENCOUNTER 2021-03-19 15:22 | Emergency (ER) | payer MEDICAID, SELFPAY ==
[2021-03-19 15:27] VITALS: BP 138/60; PULSE 110; O2SAT 97
[2021-03-19 17:27] VITALS: BP 130/81; PULSE 80; RESP 22; O2SAT 100; BMI 30.7
== END 2021-03-19 21:08 | disposition left against medical advice (07) ==
PROVIDERS: Emergency Provider Emergency Medicine
DX: R10.9 Unspecified abdominal pain (principal)
CPT/HCPCS: 99282

== ENCOUNTER 2021-03-21 12:27 | Emergency (ER) | payer MEDICAID, SELFPAY ==
[2021-03-21 12:29] VITALS: BP 157/97; PULSE 89; RESP 22; TEMP 36.4; O2SAT 100; BMI 29.9
--- NOTE | 2021-03-21 13:59 | ED.ABDPAIN ---
HPI - Abdominal Pain General Chief Complaint: Abdominal Pain Stated Complaint: ABD PAIN Time Seen by Provider: 03/21/21 13:47 Source: patient Mode of arrival: ambulatory Limitations: no limitations History of Present Illness HPI narrative: 30-year-old male who presents emergency department for evaluation of nausea, vomiting abdominal pain. The patient has a history cannabis hyperemesis/cyclic vomiting syndrome. He states that his symptoms began yesterday. He states that he has a constant, left-sided abdominal pain which is a cramping sensation which is 10/10 at its worst. He states that he has been vomiting frequently and is unable to eat or drink fluids. He went to [facility] and he states that he was evaluated and cap overnight. He states that he was not feeling better but he was discharged from the hospital anyway. He states he is not able to eat or drink and he is continuing to vomit therefore he came to this emergency department for re-evaluation. He denied fever, chills, chest pain, shortness of breath, frequency, urgency or dysuria. The patient states that he is continuing to smoke marijuana but he only smokes 1 marijuana cigarette per day. He does drink alcohol occasionally. He does smoke cigarettes daily. Related Data Previous Rx's Medication Instructions Recorded famotidine 20 mg PO BID PRN 30 Days #60 tab 11/07/20 ondansetron 4 mg PO Q6H PRN #30 tab 11/07/20 prochlorperazine 25 mg [place] Q8H PRN 4 Days #12 supp 03/21/21 Allergies Allergy/AdvReac Type Severity Reaction Status Date / Time No Known Allergies Allergy Verified 03/19/21 17:27 [No Known Allergies*] Review of Systems Review of Systems Yes all other systems are reviewed and are negative Physical Exam Vital Signs: Vital Signs: Last Vital Signs Temp 98.4 F 03/21/21 15:32 Pulse 65 03/21/21 15:32 Resp 16 03/21/21 15:32 BP 127/80 03/21/21 15:32 Pulse Ox 99 03/21/21 15:32 Body Mass Index 29.9 Const: Other: Awake, alert, appears to be in distress secondary to his abdominal pain and dry heaving. He is cooperative. HENMT: Head: Yes normal to inspection, Yes normocephalic and Yes atraumatic Ears: external ears normal General nose exam: Normal external nose present Face and sinus: Yes normal facial exam Mouth: Normal oral and palatal mucosa present Throat: Yes posterior oropharynx normal Eyes: Periorbital: periorbital findings normal Eyelids: Yes eyelids normal Conjunctivae: conjunctivae normal Sclerae: sclerae normal Corneas: corneas normal Pupils: Equal, round and reactive pupils present Direct Ophthalmoscopy: normal light reflex Neck: Neck: Yes full ROM, Yes no lymphadenopathy, Yes no meningeal signs, Yes trachea midline and Yes supple Chest: Chest palpation & inspection: normal inspection of the chest and normal palpation of entire chest wall Resp: Effort & Inspection: normal respiratory effort and able to speak in complete sentences Auscultation: clear to auscultation bilaterally Cardio: Rate: regular rate Rhythm: regular rhythm Heart sounds: S1 normal heart sound present, S2 normal heart sound present and no murmurs GI: Inspection: Yes normal to inspection Palpation (GI): Soft to palpation, Tenderness to palpation present (GI) (Moderate diffuse), no guarding, not rigid and No hepatosplenomegaly present : General: Yes no CVA tenderness Back/Spine/Pelvis: Back: no CVA tenderness Cervical Spine: normal cervical lordosis Thoracic/Lumbar Spine: thoracic and lumbar spine normal to inspection Skin: Lesions: no lesions Rashes: no rashes Wounds: no wounds Neuro: General: no meningeal signs Cranial nerves: Yes CN's II-XII intact bilaterally and Yes Equal, round and reactive pupils present Cognition (Neuro): normal cognition Motor exam (neuro): 5/5 motor strength present throughout Extrem: General: Yes normal to inspection and Yes full ROM Psych: Appearance: well kempt Mental Status: mental status grossly normal Speech and movement: Normal speech and movement present Affect: normal affect Attitude: cooperative Thought process: Normal thought process present Thought content: Normal thought content present Course Course Course Narrative: 30-year-old male with a history of cannabis hyperemesis/cyclic vomiting syndrome who presents emergency department for evaluation of 2 days of nausea, vomiting abdominal pain. Vital signs reveal that he was tachycardic with a pulse of 117, tachypneic with a respiratory rate of 22 and hypertensive a blood pressure of 150 note over 97. Physical examination did reveal that he was in distress secondary to his discomfort. I did order a CBC, CMP, lipase. Patient will be treated with normal saline IV x1 L. he is also ordered to get Haldol 5 mg IV and Benadryl 50 mg IV for his nausea is abdominal pain. 1609: The patient's laboratory evaluation [place] a [place] [address]. Patient has an elevated BUN and creatinine of 26 and 1.58, he has had similar elevations in the past. The patient's nausea vomiting has improved after receiving Haldol and Benadryl IV. States his abdominal pain is still present therefore he is ordered to get Toradol 30 mg IV. Plan is to discharge the patient to home. He has been taking Phenergan at home with no relief of symptoms therefore he was given a prescription for Compazine 25 mg suppositories 1 every 6 hours as needed for nausea and vomiting. He was advised to stop taking the Phenergan while he is taking Compazine. I did tell him that he needs to stop smoking cannabis may take 3-6 months before his symptoms resolved after he stops using this drug. MDM - Abdominal Pain Lab Data Result diagrams: 03/21/21 14:32 03/21/21 14:32 Labs: Lab Results 03/21/21 03/21/21 Range/Units 14:32 14:32 WBC 12.6 H (4.8-10.8) X10*3/uL RBC 6.07 H (4.60-5.80) X10*6/uL Hgb 16.2 (14.0-18.0) g/dl Hct 49.0 (42-52) % MCV 80.7 (80-98) fL MCH 26.7 L (27.0-33.0) pg MCHC 33.1 (31.0-36.0) g/dl RDW 13.1 (11.0-16.0) % Plt Count 281 (160-400) X10*3/uL MPV 10.2 (9.4-12.4) fL Immature Gran % (Auto) 0.3 (0.0-0.4) % Neut % (Auto) 83.3 H (45-73) % Lymph % (Auto) 9.2 L (20-40) % [place] % (Auto) 7.0 (2-11) % Eos % (Auto) 0.0 (0-4) % Baso % (Auto) 0.2 (0-2) % Lymph # (Auto) 1.2 (1.2-4.9) X10*3/uL [place] # (Auto) 0.9 (0.1-1.2) X10*3/uL Eos # (Auto) 0.0 (0.0-0.4) X10*3/uL Baso # (Auto) 0.0 (0.0-0.2) X10*3/uL Abs Immat Gran (auto) 0.04 H (0.00-0.03) X10*3/uL Absolute Neuts (auto) 10.5 H (2.0-8.3) X10*3/uL Absolute Nucleated RBC 0.000 (0.0-0.012) X10*3/uL Nucleated RBC % (auto) 0.0 (0.0-0.2) /100WBC Sodium 141 (135-145) mmol/L Potassium 3.7 (3.3-5.1) mmol/L Chloride 101 (96-108) mmol/L Carbon Dioxide 24 (22-29) mmol/L Anion Gap 20 (12-20) BUN 26 H D (9-16) mg/dL Creatinine 1.58 H (0.5-1.4) mg/dL Estim Creat Clear Calc 68.4 Estimated GFR 52 Random Glucose 121 H D (60-115) mg/dL Calcium 10.6 H D (8.4-10.2) mg/dL Total Bilirubin 0.7 (0.0-1.0) mg/dL AST 22 D (5-37) U/L ALT 30 (0-40) U/L Alkaline Phosphatase 85 (39-117) U/L Total Protein 8.6 H (6.5-8.0) g/dL Albumin 5.6 H (3.5-5.0) g/dL Lipase 4 L (8-78) U/L Discharge Plan Discharge Clinical Impression: Cannabinoid hyperemesis syndrome, Cannabis abuse Abdominal pain Qualifiers: Abdominal location: left lower quadrant Qualified Code(s): R10.32 - Left lower quadrant pain Patient Disposition: Home, Self-Care Instructions: Cyclic Vomiting Syndrome (ED) Additional Instructions: You need to stop using marijuana completely. After few stop using marijuana, your symptoms will get better after the 3-6 months. Stop taking the Phenergan (promethazine). Take the Compazine (prochlorperazine) 25 mg suppositories, 1 suppository every 8 hours as needed for nausea and vomiting. Take ibuprofen 200 mg pills, 3 pills every 6 hours as needed for pain. Take Tylenol (acetaminophen) 500 mg pills, 2 pills every 4 to 6 hours as needed for pain. Follow-up with your doctor in 2 days. Please return to the emergency department if your symptoms get worse or if you develop any symptoms that are concerning to you. Prescriptions: New prochlorperazine 25 mg suppository 25 mg [place] Q8H PRN (Reason: nausea and vomiting) 4 Days Qty: 12 RF: 0 No Action famotidine 20 mg Tablet 20 mg PO BID PRN (Reason: Acid Reflux) 30 Days Qty: 60 RF: 0 ondansetron 4 mg tablet,disintegrating 4 mg PO Q6H PRN (Reason: nausea/vomiting) Qty: 30 RF: 0 PMFSH Past Medical History Medical History Abdominal pain Cocaine abuse No known health problems Pneumomediastinum Pneumothorax Social History Social History Household Members: Family Housing: Apartment Alcohol intake: current Alcohol intake frequency: a few times a week Alcohol type: wine Smoking Status: Never smoker Tobacco Type: Cigarette Second Hand Smoke Exposure: No Substance Use Type: Marijuana Advance Directives: Yes Advance Directives Information Provided: No Advance Directives on File: No service: No Current occupational status: unemployed
[2021-03-21 14:20] VITALS: BP 146/101; PULSE 78; RESP 22; TEMP 37.1; O2SAT 98
[2021-03-21 14:36] LABS: MANUAL DIFF FLAG NO
[2021-03-21 14:38] LABS: Basophils Percent Auto 0.2 % (0-2); Hemoglobin 16.2 g/dl (14.0-18.0); Imm Gran Abs Auto 0.04 X10*3/uL (0.00-0.03); Imm Gran Pct Auto 0.3 % (0.0-0.4); Lymphocytes Absolute Auto 1.2 X10*3/uL (1.2-4.9); Lymphocytes Percent Auto 9.2 % (20-40); Mean Corpuscular HGB Conc 33.1 g/dl (31.0-36.0); Mean Corpuscular Hemoglobin 26.7 pg (27.0-33.0); Mean Corpuscular Volume 80.7 fL (80-98); Mean Platelet Volume 10.2 fL (9.4-12.4); Monocytes Absolute Auto 0.9 X10*3/uL (0.1-1.2); Neutrophils Absolute Auto 10.5 X10*3/uL (2.0-8.3); Neutrophils Percent Auto 83.3 % (45-73); Platelet Count 281 X10*3/uL (160-400); Red Blood Count 6.07 X10*6/uL (4.60-5.80); Red Cell Distribution Width 13.1 % (11.0-16.0); White Blood Count 12.6 X10*3/uL (4.8-10.8)
[2021-03-21] MEDS: Haloperidol Lactate 5 MG/ML VIAL IV (14:43)
[2021-03-21] MEDS: diphenhydrAMINE HCL 50 MG/ML VIAL IVPUSH (14:43)
[2021-03-21 14:46] VITALS: BP 154/75; PULSE 88; RESP 16; O2SAT 100
--- NOTE | 2021-03-21 14:57 | PC.NURSE ---
Pt alert, oriented, skin flushed, diaphoretic. Pt seen at [facility] ED 03/20 for cyclic vomiting, reports no change, feeling worst. Pt restless, pacing. IV established, medication given as documented.
[2021-03-21 15:07] LABS: Alanine Aminotransferase 30 U/L (0-40); Albumin Level 5.6 g/dL (3.5-5.0); Alkaline Phosphatase 85 U/L (39-117); Anion Gap 20 (12-20); Aspartate Amino Transferase 22 U/L (5-37); Bilirubin Total 0.7 mg/dL (0.0-1.0); Blood Urea Nitrogen 26 mg/dL (9-16); Calcium 10.6 mg/dL (8.4-10.2); Carbon Dioxide 24 mmol/L (22-29); Chloride 101 mmol/L (96-108); Creatinine Clr Calc Pharmacy 68.4; Estimated Glomerular Filt Rate 52; Glucose Random 121 mg/dL (60-115); Lipase 4 U/L (8-78); Potassium 3.7 mmol/L (3.3-5.1); Sodium 141 mmol/L (135-145); Total Protein 8.6 g/dL (6.5-8.0)
[2021-03-21 15:32] VITALS: BP 127/80; PULSE 65; RESP 16; TEMP 36.9; O2SAT 99
[2021-03-21] MEDS: 0.9 % Sodium Chloride 1,000 ML 999 ML IV (15:42)
[2021-03-21] MEDS: Ketorolac Tromethamine 15 MG/ML VIAL 30 MG IV (16:28)
--- NOTE | 2021-03-21 16:55 | PC.NURSE ---
Pt no longer pacing or guarding to abd, skin color has improved. No acute vomiting from this RN. Pt although verbally reports no change in sx.
[2021-03-21] MEDS: Promethazine HCL 25 MG TABLET PO (17:21)
== END 2021-03-21 17:39 | disposition home or self-care (01) ==
PROVIDERS: Emergency Provider Emergency Medicine Emergency Medical Services
DX: F12.19 Cannabis abuse with unspecified cannabis-induced disorder (principal); R10.9 Unspecified abdominal pain; R11.2 Nausea with vomiting, unspecified; R10.32 Left lower quadrant pain; F17.210 Nicotine dependence, cigarettes, uncomplicated; Z71.6 Tobacco abuse counseling; Z79.899 Other long term (current) drug therapy
CPT/HCPCS: 36415; 80053; 83690; 85025; 96365; 96375; 99284; J1200; J1885

== ENCOUNTER 2021-03-22 07:05 | Emergency (ER) | payer MEDICAID, SELFPAY | END 2021-03-22 07:39 | disposition left against medical advice (07) | PROVIDERS: Emergency Provider Emergency Medicine | DX: R10.9 Unspecified abdominal pain (principal) ==

== ENCOUNTER 2021-03-22 08:26 | Inpatient (IN) | payer MEDICAID, SELFPAY ==
--- NOTE | 2021-03-22 | ECG_ITS ---
Test Reason : QTc evaluation Blood Pressure : / mmHG Vent. Rate : 081 BPM Atrial Rate : 081 BPM P-R Int : 126 ms QRS Dur : 094 ms QT Int : 398 ms P-R-T Axes : 057 064 003 degrees QTc Int : 462 ms Normal sinus rhythm Normal ECG When compared with ECG of 04-NOV-2020 10:37, T wave amplitude has decreased in Anterior leads Referred By: Guzman Burch Electronically Signed By:ANA SHARP MD
--- NOTE | ~2021-03-22 | CT_ITS ---
EXAMINATION: CT ABDOMEN AND PELVIS WITH CONTRAST CLINICAL INFORMATION: Nausea, vomiting, abdominal pain. COMPARISON: Renal ultrasound 11/04/2020, CT abdomen and pelvis noncontrast 11/02/2020, 01/14/2016 TECHNIQUE: Multidetector volumetric images were obtained from the superior aspect of the liver through the pubic symphysis following administration 85 mL of Omnipaque 350 intravenous contrast. Sagittal and coronal reformatted images were obtained on the technologist's workstation. Oral contrast: No This CT examination was performed using dose optimization techniques as appropriate, variously including the following: *Automated exposure control *Adjustment of mA and/or kV according to patient size (this includes techniques or standardized protocols for targeted exams where dose is matched to indication/reason for exam; i.e. extremities or head) *Use of iterative reconstruction technique DLP: 609 mGy-cm FINDINGS: LUNG BASES: The visualized lung bases are unremarkable. LIVER, GALLBLADDER, AND BILIARY TREE: The liver is normal in size, shape, and attenuation. No focal hepatic lesion or biliary ductal dilatation is present. The gallbladder is unremarkable with no evidence of radiopaque gallstones, gallbladder wall thickening, or obvious pericholecystic inflammatory changes. PANCREAS: The pancreas is normal in size and contour and attenuation. There is no pancreatic ductal distention or stranding in the peripancreatic soft tissues. Again, there is a chronic simple cyst left upper quadrant between the left adrenal and splenic vessels without perceptible wall or surrounding inflammatory change. Overall dimensions on current exam are 1.5 x 4.6 cm x 5.0 cm in length. This is compared with prior measurements are approximately 1.9 x 4.5 x 5.[address] 2019 and 2.7 x 4.6 x [address] 2015. SPLEEN: Unremarkable. ADRENAL GLANDS: Unremarkable. KIDNEYS AND URETERS: The kidneys are normal in size, shape, and attenuation. No hydronephrosis, hydroureter, or calculi seen. No perinephric stranding. BLADDER: Unremarkable. GASTROINTESTINAL TRACT: There are no focal inflammatory changes in the bowel or mesentery. The appendix is normal. There is no pneumatosis or free air. No ascites or intraperitoneal fluid collection ABDOMINAL WALL: No significant hernia is appreciated. LYMPH NODES: There are multiple nonspecific small mesenteric nodes central mesentery, in retrospect similar to prior studies 2019 and 2015. No interval bulky mesenteric adenopathy and no retroperitoneal or inguinal lymphadenopathy. VASCULAR: Unremarkable. PELVIC VISCERA: Unremarkable. OSSEOUS STRUCTURES: Unremarkable. CT/CT abdomen pelvis w con IMPRESSION: 1. No bowel obstruction or focal inflammatory changes. Normal appendix. No ascites. 2. 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 3. Multiple nonspecific small mesenteric nodes in retrospect stable from prior exams 2019 and 2015. No bulky adenopathy. No retroperitoneal or pelvic adenopathy.
[2021-03-22 08:40] VITALS: BP 145/94; PULSE 96; RESP 20; TEMP 37.2; O2SAT 100; BMI 29.9
--- NOTE | 2021-03-22 09:33 | ED_ITS ---
HPI - Abdominal Pain General Chief Complaint: Abdominal Pain Stated Complaint: abd pain Time Seen by Provider: 03/22/21 08:56 Source: patient Mode of arrival: ambulatory Limitations: no limitations History of Present Illness HPI narrative: 30-year-old male with a past medical history of cannabinoid hyperemesis syndrome, cocaine abuse and JOSE presenting to the ED with complaints of nausea/vomiting with diffuse abdominal pain for the past 3-4 days worse today. Has been seen at [facility] in here yesterday for same complaint and reports he is still not feeling better despite taking the multiple medications that were prescribed between [facility] and [facility]. Reports he last used marijuana approximately 4 days ago. Deny any recent cocaine usage. Denies any possible bad food exposure. Denies any recent travel or sick contacts. Denies any fevers, chills, headaches, dizziness, chest pain, shortness of breath, palpitations, back pain, dysuria, hematuria, penile discharge, diarrhea, constipation, black or bloody stools or black or bloody emesis. MD elicited complaint: abdominal pain Pertinent past history: other (Cannabinoid hyperemesis syndrome) Onset (ago): day(s) (4 days) Pain Consistency: constant Location: diffuse Severity: severe Pain scale (0-10): 10 Quality: cramping Radiation: none Migration to: no migration Exacerbating factors: eating and vomiting Relieving factors: nothing Associated symptoms: nausea Related Data Previous Rx's Medication Instructions Recorded famotidine 20 mg PO BID PRN 30 Days #60 tab 11/07/20 ondansetron 4 mg PO Q6H PRN #30 tab 11/07/20 prochlorperazine 25 mg [place] Q8H PRN 4 Days #12 supp 03/21/21 Allergies Allergy/AdvReac Type Severity Reaction Status Date / Time No Known Allergies Allergy Verified 03/19/21 17:27 [No Known Allergies*] Review of Systems Review of Systems Constitutional : No Weight loss, No Fever, No Chills, No Night Sweats, No Fatigue, NoMalaise ENT/Mouth: No ear pain, No sore throat, No Difficulty swallowing Cardiovascular : No Chest Pain, No SOB, No Dyspnea on Exertion, No Orthopnea, NoEdema, No Palpitations Respiratory : No Cough, No Sputum, No Wheezing, No Dyspnea Gastrointestinal : Positive Nausea/Vomiting/abdominal pain, No Diarrhea, No blood streaked emesis, No coffee-ground emesis, No gross hematemesis, No blood streak stool, No gross hematochezia, No Melena Genitourinary : No irregular bleeding, No Dysuria, No Urinary Frequency, No Hematuria,No Urinary Incontinence, No Urgency, No Flank Pain Musculoskeletal : No joint pain, No Myalgias, No Joint Swelling Skin : No Skin Lesions, No rash Neuro : No Weakness, No Numbness, No Paresthesias, No Loss of Consciousness, NoDizziness, No Headache Psych : No Social Issues, Heme/Lymph: No Bruising, No Bleeding,No Lymphadenopathy Endocrine : No Polyuria, No Polydipsia, No Temperature Intolerance Yes all other systems are reviewed and are negative Physical Exam Vital Signs: Vital Signs: Last Vital Signs Temp 98.9 F 03/22/21 08:40 Pulse 77 03/22/21 12:45 Resp 18 03/22/21 12:45 BP 142/86 H 03/22/21 12:45 Pulse Ox 100 03/22/21 08:40 Body Mass Index 29.9 vital signs have been reviewed as normal and appeared to be correct. Blood pressure hypertensive at 145/94. Heart rate normal. Respiration rate normal. Temperature normal. Oxygen saturation normal. Appearance: Alert. Oriented X3. No acute distress. Head: Normal external exam. Normocephalic. Eyes: PERRLA. EOMI. Conjunctiva and sclera normal. Eyelids normal. ENT: Pharynx normal. Uvula midline. Moist mucous membranes. Neck: Normal inspection. Neck supple. FROM. No adenopathy. No meningeal signs. CVS: Normal heart rate and rhythm. Heart sound normal. No murmurs noted. Pulses normal throughout. Respiratory: No respiratory distress. Painless inspiration. Breath sounds normal. No wheezes/rales/rhonchi noted. Chest nontender. No accessory muscle usage noted or decreased air movement noted. Abdomen: Soft and moderate tenderness diffusely with guarding. Nondistended. No rigidity. Bowel sounds normal in all 4 quadrants. No distention noted. No organomegaly noted. No visible injury noted. No rebound tenderness. Negative Rovsing sign. Negative obturator's sign. Negative psoas sign. Negative Henson sign. Back: No CVA tenderness. Full range of motion noted. Skin: Skin warm and dry. Normal skin color. Normal skin turgor. No rashes/lesions/lacerations noted. Extremities: Extremities exhibit normal range of motion. Extremities nontender. Neuro: Oriented X 3. No motor deficit. No sensory deficit. Reflexes normal. Normal steady gait. Course Course Course Narrative: 12pm - labs reviewed and patient with a potassium of 3.1. BUN 27. Creatinine 1.44. Random glucose 116. Otherwise all other labs are within normal limits. UA within normal limits no evidence of UTI. Patient positive for marijuana negative for all other drugs. Negative for EtOH. Negative for COVID/RSV/flu. CT scan of abdomen pelvis revealed chronic changes no acute processes noted. - I went back in to reassess the patient and he reports he is not feeling any better therefore will need to admit for cannabinoid hyperemesis syndrome. - I replaced the potassium with IV potassium also gave 2 L of IV fluids. Spoke to Dr. Luis he will be admitting at this time. Patient understands agrees with this plan. MDM - Abdominal Pain MDM Narrative Medical decision making narrative: 30-year-old male with a past medical history of cannabinoid hyperemesis syndrome, cocaine abuse and JOSE presenting to the ED with complaints of nausea/vomiting with diffuse abdominal pain for the past 3-4 days worse today. - Plan: Labs, CT scan of abdomen pelvis with IV contrast, UA. Provide a L of IV fluids, 20 mg of IV Pepcid, 50 mg of Benadryl, 10 mg of Reglan, 30 mg of Toradol then re-evaluate. Medical Records Attestation: I reviewed the patient's medical records. Lab Data Attestation: I reviewed the patient's lab results. Result diagrams: 03/22/21 09:33 03/22/21 09:33 Labs: Lab Results 03/22/21 03/22/21 03/22/21 Range/Units 09:33 09:33 09:33 WBC 10.7 (4.8-10.8) X10*3/uL RBC 5.62 (4.60-5.80) X10*6/uL Hgb 15.0 (14.0-18.0) g/dl Hct 45.2 (42-52) % MCV 80.4 (80-98) fL MCH 26.7 L (27.0-33.0) pg MCHC 33.2 (31.0-36.0) g/dl RDW 12.7 (11.0-16.0) % Plt Count 250 (160-400) X10*3/uL MPV 10.4 (9.4-12.4) fL Immature Gran % (Auto) 0.3 (0.0-0.4) % Neut % (Auto) 79.5 H (45-73) % Lymph % (Auto) 11.1 L (20-40) % [place] % (Auto) 9.0 (2-11) % Eos % (Auto) 0.0 (0-4) % Baso % (Auto) 0.1 (0-2) % Lymph # (Auto) 1.2 (1.2-4.9) X10*3/uL [place] # (Auto) 1.0 (0.1-1.2) X10*3/uL Eos # (Auto) 0.0 (0.0-0.4) X10*3/uL Baso # (Auto) 0.0 (0.0-0.2) X10*3/uL Abs Immat Gran (auto) 0.03 (0.00-0.03) X10*3/uL Absolute Neuts (auto) 8.5 H (2.0-8.3) X10*3/uL Absolute Nucleated RBC 0.000 (0.0-0.012) X10*3/uL Nucleated RBC % (auto) 0.0 (0.0-0.2) /100WBC Sodium 136 (135-145) mmol/L Potassium 3.1 L (3.3-5.1) mmol/L Chloride 94 L (96-108) mmol/L Carbon Dioxide 29 (22-29) mmol/L Anion Gap 16 (12-20) BUN 27 H (9-16) mg/dL Creatinine 1.44 H (0.5-1.4) mg/dL Estim Creat Clear Calc 75.1 Estimated GFR 58 Random Glucose 116 H (60-115) mg/dL Calcium 10.3 H (8.4-10.2) mg/dL Magnesium 2.3 (1.6-2.6) mg/dL Total Bilirubin 0.8 (0.0-1.0) mg/dL AST 18 (5-37) U/L ALT 25 (0-40) U/L Alkaline Phosphatase 79 (39-117) U/L Total Protein 8.0 (6.5-8.0) g/dL Albumin 5.3 H (3.5-5.0) g/dL Lipase < 4 L (8-78) U/L Urine Color Urine Appearance Urine pH (5.0-8.0) Ur Specific [place] (1.005-1.025) Urine Protein (NEG-TRACE) MG/DL Urine Glucose (UA) (NEG) MG/DL Urine Ketones (NEG) MG/DL Urine Blood (NEG) Urine Nitrite (NEG) Ur Leukocyte Esterase (NEG) Urine Opiates Screen (Not Detect) Ur Barbiturates Screen (Not Detect) Ur Phencyclidine Scrn (Not Detect) Ur Amphetamines Screen (Not Detect) U Benzodiazepines Scrn (Not Detect) Urine Cocaine Screen (Not Detect) U Marijuana (THC) Screen (Not Detect) Ethyl Alcohol mg/dL Coronavirus (PCR) NEGATIVE (Negative) Influenza Type A (PCR) NEGATIVE (Negative) Influenza Type B (PCR) NEGATIVE (Negative) RSV RNA Qual (PCR) NEGATIVE (Negative) 03/22/21 03/22/21 03/22/21 Range/Units 09:33 12:42 12:42 WBC (4.8-10.8) X10*3/uL RBC (4.60-5.80) X10*6/uL Hgb (14.0-18.0) g/dl Hct (42-52) % MCV (80-98) fL MCH (27.0-33.0) pg MCHC (31.0-36.0) g/dl RDW (11.0-16.0) % Plt Count (160-400) X10*3/uL MPV (9.4-12.4) fL Immature Gran % (Auto) (0.0-0.4) % Neut % (Auto) (45-73) % Lymph % (Auto) (20-40) % [place] % (Auto) (2-11) % Eos % (Auto) (0-4) % Baso % (Auto) (0-2) % Lymph # (Auto) (1.2-4.9) X10*3/uL [place] # (Auto) (0.1-1.2) X10*3/uL Eos # (Auto) (0.0-0.4) X10*3/uL Baso # (Auto) (0.0-0.2) X10*3/uL Abs Immat Gran (auto) (0.00-0.03) X10*3/uL Absolute Neuts (auto) (2.0-8.3) X10*3/uL Absolute Nucleated RBC (0.0-0.012) X10*3/uL Nucleated RBC % (auto) (0.0-0.2) /100WBC Sodium (135-145) mmol/L Potassium (3.3-5.1) mmol/L Chloride (96-108) mmol/L Carbon Dioxide (22-29) mmol/L Anion Gap (12-20) BUN (9-16) mg/dL Creatinine (0.5-1.4) mg/dL Estim Creat Clear Calc Estimated GFR Random Glucose (60-115) mg/dL Calcium (8.4-10.2) mg/dL Magnesium (1.6-2.6) mg/dL Total Bilirubin (0.0-1.0) mg/dL AST (5-37) U/L ALT (0-40) U/L Alkaline Phosphatase (39-117) U/L Total Protein (6.5-8.0) g/dL Albumin (3.5-5.0) g/dL Lipase (8-78) U/L Urine Color YELLOW Urine Appearance CLEAR Urine pH 6.0 (5.0-8.0) Ur Specific [place] 1.010 (1.005-1.025) Urine Protein TRACE (NEG-TRACE) MG/DL Urine Glucose (UA) NEG (NEG) MG/DL Urine Ketones 40 (NEG) MG/DL Urine Blood NEG (NEG) Urine Nitrite NEG (NEG) Ur Leukocyte Esterase NEG (NEG) Urine Opiates Screen Not Detected (Not Detect) Ur Barbiturates Screen Not Detected (Not Detect) Ur Phencyclidine Scrn Not Detected (Not Detect) Ur Amphetamines Screen Not Detected (Not Detect) U Benzodiazepines Scrn Not Detected (Not Detect) Urine Cocaine Screen Not Detected (Not Detect) U Marijuana (THC) Screen POSITIVE H (Not Detect) Ethyl Alcohol < 10 mg/dL Coronavirus (PCR) (Negative) Influenza Type A (PCR) (Negative) Influenza Type B (PCR) (Negative) RSV RNA Qual (PCR) (Negative) Imaging Data CT scan of abdomen pelvis with IV contrast: Attestation: I personally reviewed and interpreted this imaging study as follows: Radiologist's impression: FINDINGS: LUNG BASES: The visualized lung bases are unremarkable. LIVER, GALLBLADDER, AND BILIARY TREE: The liver is normal in size, shape, and attenuation. No focal hepatic lesion or biliary ductal dilatation is present. The gallbladder is unremarkable with no evidence of radiopaque gallstones, gallbladder wall thickening, or obvious pericholecystic inflammatory changes. PANCREAS: The pancreas is normal in size and contour and attenuation. There is no pancreatic ductal distention or stranding in the peripancreatic soft tissues. Again, there is a chronic simple cyst left upper quadrant between the left adrenal and splenic vessels without perceptible wall or surrounding inflammatory change. Overall dimensions on current exam are 1.5 x 4.6 cm x 5.0 cm in length. This is compared with prior measurements are approximately 1.9 x 4.5 x 5.[address] 2019 and 2.7 x 4.6 x [address] 2016. SPLEEN: Unremarkable. ADRENAL GLANDS: Unremarkable. KIDNEYS AND URETERS: The kidneys are normal in size, shape, and attenuation. No hydronephrosis, hydroureter, or calculi seen. No perinephric stranding. BLADDER: Unremarkable. GASTROINTESTINAL TRACT: There are no focal inflammatory changes in the bowel or mesentery. The appendix is normal. There is no pneumatosis or free air. No ascites or intraperitoneal fluid collection ABDOMINAL WALL: No significant hernia is appreciated. LYMPH NODES: There are multiple nonspecific small mesenteric nodes central mesentery, in retrospect similar to prior studies 2019 and 2016. No interval bulky mesenteric adenopathy and no retroperitoneal or inguinal lymphadenopathy. VASCULAR: Unremarkable. PELVIC VISCERA: Unremarkable. OSSEOUS STRUCTURES: Unremarkable. CT/CT abdomen pelvis w con IMPRESSION: 1. No bowel obstruction or focal inflammatory changes. Normal appendix. No ascites. 2. 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 3. Multiple nonspecific small mesenteric nodes in retrospect stable from prior exams 2019 and 2016. No bulky adenopathy. No retroperitoneal or pelvic adenopathy. Critical Care Time Critical Care Time Critical Care Time: Yes Total Critical Care Time: 60 Attestation: I personally attest to this time spent taking care of the patient Discharge Plan Discharge Clinical Impression: Cannabinoid hyperemesis syndrome Patient Disposition: Admitted As Inpatient COUNTS INCLUDE 234 BEDS AT THE [facility] Past Medical History Attestation statement: The following information was validated with the patient. Medical History Abdominal pain Cocaine abuse No known health problems Pneumomediastinum Pneumothorax Social History Social History Household Members: Family Housing: Apartment Alcohol intake: current Alcohol intake frequency: a few times a week Alcohol ty pe: wine Smoking Status: Never smoker Tobacco Type: Cigarette Second Hand Smoke Exposure: No Substance Use Type: Marijuana Advance Directives: Yes Advance Directives Information Provided: Yes Advance Directives on File: No service: No Current occupational status: unemployed
[2021-03-22 09:39] LABS: MANUAL DIFF FLAG NO
[2021-03-22 09:40] LABS: Basophils Percent Auto 0.1 % (0-2); Hematocrit 45.2 % (42-52); Imm Gran Abs Auto 0.03 X10*3/uL (0.00-0.03); Imm Gran Pct Auto 0.3 % (0.0-0.4); Lymphocytes Absolute Auto 1.2 X10*3/uL (1.2-4.9); Lymphocytes Percent Auto 11.1 % (20-40); Mean Corpuscular HGB Conc 33.2 g/dl (31.0-36.0); Mean Corpuscular Hemoglobin 26.7 pg (27.0-33.0); Mean Corpuscular Volume 80.4 fL (80-98); Mean Platelet Volume 10.4 fL (9.4-12.4); Neutrophils Absolute Auto 8.5 X10*3/uL (2.0-8.3); Neutrophils Percent Auto 79.5 % (45-73); Platelet Count 250 X10*3/uL (160-400); Red Blood Count 5.62 X10*6/uL (4.60-5.80); Red Cell Distribution Width 12.7 % (11.0-16.0); White Blood Count 10.7 X10*3/uL (4.8-10.8)
[2021-03-22] MEDS: Lidocaine 4 % Patch ADH..PATCH 2 PATCH TRANSDERMA (09:45)
[2021-03-22] MEDS: Ketorolac Tromethamine 30 MG/ML VIAL IVPUSH (09:46)
[2021-03-22] MEDS: 0.9 % Sodium Chloride 1,000 ML 999 ML IVCONT ×2 (09:46→12:36)
[2021-03-22] MEDS: diphenhydrAMINE HCL 50 MG/ML VIAL IVPUSH (09:47)
[2021-03-22] MEDS: Famotidine/PF 20 MG/2 ML VIAL IVPUSH (09:47)
[2021-03-22] MEDS: Metoclopramide HCl 10 MG/2 ML VIAL IVPUSH ×2 (09:47→14:41)
[2021-03-22 10:09] LABS: Ethanol < 10 mg/dL
[2021-03-22 10:25] LABS: Alanine Aminotransferase 25 U/L (0-40); Albumin Level 5.3 g/dL (3.5-5.0); Alkaline Phosphatase 79 U/L (39-117); Anion Gap 16 (12-20); Aspartate Amino Transferase 18 U/L (5-37); Bilirubin Total 0.8 mg/dL (0.0-1.0); Blood Urea Nitrogen 27 mg/dL (9-16); Carbon Dioxide 29 mmol/L (22-29); Chloride 94 mmol/L (96-108); Creatinine Clr Calc Pharmacy 75.1; Estimated Glomerular Filt Rate 58; Glucose Random 116 mg/dL (60-115); Lipase < 4 U/L (8-78); Magnesium 2.3 mg/dL (1.6-2.6); Potassium 3.1 mmol/L (3.3-5.1); Sodium 136 mmol/L (135-145)
[2021-03-22 10:39] LABS: Calcium 10.3 mg/dL (8.4-10.2)
[2021-03-22 10:59] LABS: Influenza A PCR NEGATIVE (Negative); Influenza B PCR NEGATIVE (Negative); Resp Syncy Virus RNA Qual PCR NEGATIVE (Negative); SARS COV2 PCR INHOUSE NEGATIVE (Negative)
[2021-03-22] MEDS: iohexoL 350 MG/ML 100 ML INFUS..BTL IV (11:08)
[2021-03-22 12:45] VITALS: BP 142/86; PULSE 77; RESP 18
[2021-03-22 12:50] LABS: Glucose Urine UA NEG (NEG); Leukocyte Esterase Urine NEG (NEG); Nitrite Urine NEG (NEG); Urine Blood NEG (NEG); Urine Ketones 40 MG/DL (NEG); Urine Protein TRACE MG/DL (NEG-TRACE)
[2021-03-22 12:53] LABS: Appearance Urine CLEAR; Color Urine YELLOW
[2021-03-22] MEDS: ondansetron HCL 4 MG/2 ML VIAL IVPUSH ×2 (12:58→21:50)
[2021-03-22] MEDS: Morphine Sulfate 2 MG/ML CARTRIDGE IVPUSH ×2 (12:58→18:06)
[2021-03-22] MEDS: Potassium Chloride/H20 10 MEQ/100 ML PIGGYBACK 100 MEQ IV ×2 (12:58→15:02)
[2021-03-22 13:40] LABS: Amphetamine Screen Urine Not Detected (Not Detect); Barbiturates, Urine Not Detected (Not Detect); Benzodiazepines Screen Urine Not Detected (Not Detect); Cannabinoid Screen Urine POSITIVE (Not Detect); Cocaine Screen Urine Not Detected (Not Detect); Opiate Screen Urine Not Detected (Not Detect); Phencyclidine Screen Urine Not Detected (Not Detect)
[2021-03-22] MEDS: Dextrose 5 % and 0.45 % NaCl 1,000 ML 100 ML IVCONT ×2 (14:46→22:25)
[2021-03-22 14:54] VITALS: BP 149/90; PULSE 70; RESP 20; O2SAT 100
--- NOTE | 2021-03-22 15:43 | PM.IMHP ---
History of Present Illness Date of Service: 03/22/21 Chief Complaint: Nausea, vomiting A 30 years old male with PMH of cocaine abuse, cyclic vomiting syndrome who presented to the hospital complaining of intractable nausea and vomiting for the last few days. He reported smoking marijuana 5 days ago and starting to have symptoms of nausea and vomiting since then. He went to [facility] and came to this hospital emergency before and was discharged home hold the time. He reported he could not tolerate any oral diet and continued to vomit despite trying multiple medications they were giving the him. Denies any fever, chills, chest pain, palpitation, shortness of breath or any urinary symptoms. In the emergency he was found to have hypokalemia, mildly worsen kidney. CT scan of the abdomen pelvis was negative for any acute findings. Admitted to the hospital for further evaluation and treatment. Review of Systems Review of Systems: No fever, chills and has generalized weakness No chest pain, palpitation No shortness of breath or coughing No abdominal pain, complaining of significant nausea or vomiting No urinary symptoms No any rash or wounds PMFSH Medical History Abdominal pain Cocaine abuse No known health problems Pneumomediastinum Pneumothorax Social History Household Members: Family Housing: Apartment Alcohol intake: current Alcohol intake frequency: a few times a week Alcohol type: wine Smoking Status: Never smoker Tobacco Type: Cigarette Second Hand Smoke Exposure: No Substance Use Type: Marijuana Advance Directives: Yes Advance Directives Information Provided: Yes Advance Directives on File: No service: No Current occupational status: unemployed Meds Allergies Allergy/AdvReac Type Severity Reaction Status Date / Time No Known Allergies Allergy Verified 03/19/21 17:27 [No Known Allergies*] Active Medications: Current Medications Generic Name Dose Route Start Last Admin Trade Name Freq PRN Reason Stop Dose Admin Acetaminophen 650 mg 03/22/21 15:02 Acetaminophen 325 Mg Tablet PO Q6H PRN Pain, Mild (Pain Scale 1-3) Dextrose/Sodium Chloride 1,000 mls @ 100 mls/hr 03/22/21 13:30 03/22/21 14:46 D51/2ns IVCONT 100 mls/hr .Q10H VINAYAK Administration Ondansetron HCl 4 mg 03/22/21 13:24 Ondansetron Hcl 4 Mg/2 Ml Vial IVPUSH Q8H PRN Nausea and Vomiting Sodium Chloride 3 ml 03/22/21 16:00 0.9 % Sodium Chloride Flush 3 Ml Syringe IVFLUSH QSHIFT [facility] Physical Exam Vital Signs and Narrative: Vital Signs: Last Vital Signs Temp 98.9 F 03/22/21 08:40 Pulse 70 03/22/21 14:54 Resp 20 03/22/21 14:54 BP 149/90 H 03/22/21 14:54 Pulse Ox 100 03/22/21 14:54 Body Mass Index 29.9 Const: Other: Constitutional : Alert, oriented, not in distress Neck : Normal inspection, Supple Cardiovascular : RRR, S1 S2, no lower extremity edema Respiratory : Good bilateral air entry, no crackles, wheezes or rhonchi Gastrointestinal: soft, lax, Normal bowel sounds, Non tender Skin : Warm/Dry, No rash Neurological : Alert & oriented x3, No focal deficit Results Labs CBC and Chem 7: 03/22/21 09:33 03/22/21 09:33 Labs: Laboratory Results - last 24 hr 03/22/21 03/22/21 03/22/21 09:33 09:33 09:33 MCV 80.4 MCH 26.7 L MCHC 33.2 RDW 12.7 Plt Count 250 MPV 10.4 Immature Gran % (Auto) 0.3 Neut % (Auto) 79.5 H Lymph % (Auto) 11.1 L [place] % (Auto) 9.0 Eos % (Auto) 0.0 Baso % (Auto) 0.1 Lymph # (Auto) 1.2 [place] # (Auto) 1.0 Eos # (Auto) 0.0 Baso # (Auto) 0.0 Abs Immat Gran (auto) 0.03 Absolute Neuts (auto) 8.5 H Absolute Nucleated RBC 0.000 Nucleated RBC % (auto) 0.0 Anion Gap 16 Estim Creat Clear Calc 75.1 Estimated GFR 58 Random Glucose 116 H Calcium 10.3 H Magnesium 2.3 Total Bilirubin 0.8 AST 18 ALT 25 Alkaline Phosphatase 79 Total Protein 8.0 Albumin 5.3 H Lipase < 4 L Urine Color Urine Appearance Urine pH Ur Specific [place] Urine Protein Urine Glucose (UA) Urine Ketones Urine Blood Urine Nitrite Ur Leukocyte Esterase Urine Opiates Screen Ur Barbiturates Screen Ur Phencyclidine Scrn Ur Amphetamines Screen U Benzodiazepines Scrn Urine Cocaine Screen U Marijuana (THC) Screen Ethyl Alcohol Coronavirus (PCR) NEGATIVE Influenza Type A (PCR) NEGATIVE Influenza Type B (PCR) NEGATIVE RSV RNA Qual (PCR) NEGATIVE 03/22/21 03/22/21 03/22/21 09:33 12:42 12:42 MCV MCH MCHC RDW Plt Count MPV Immature Gran % (Auto) Neut % (Auto) Lymph % (Auto) [place] % (Auto) Eos % (Auto) Baso % (Auto) Lymph # (Auto) [place] # (Auto) Eos # (Auto) Baso # (Auto) Abs Immat Gran (auto) Absolute Neuts (auto) Absolute Nucleated RBC Nucleated RBC % (auto) Anion Gap Estim Creat Clear Calc Estimated GFR Random Glucose Calcium Magnesium Total Bilirubin AST ALT Alkaline Phosphatase Total Protein Albumin Lipase Urine Color YELLOW Urine Appearance CLEAR Urine pH 6.0 Ur Specific [place] 1.010 Urine Protein TRACE Urine Glucose (UA) NEG Urine Ketones 40 Urine Blood NEG Urine Nitrite NEG Ur Leukocyte Esterase NEG Urine Opiates Screen Not Detected Ur Barbiturates Screen Not Detected Ur Phencyclidine Scrn Not Detected Ur Amphetamines Screen Not Detected U Benzodiazepines Scrn Not Detected Urine Cocaine Screen Not Detected U Marijuana (THC) Screen POSITIVE H Ethyl Alcohol < 10 Coronavirus (PCR) Influenza Type A (PCR) Influenza Type B (PCR) RSV RNA Qual (PCR) Imaging Radiologist's Impressions: Impressions Abdomen/Pelvis CT 03/22/21 09:01 IMPRESSION: 1. No bowel obstruction or focal inflammatory changes. Normal appendix. No ascites. 2. 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 3. Multiple nonspecific small mesenteric nodes in retrospect stable from prior exams 2019 and 2015. No bulky adenopathy. No retroperitoneal or pelvic adenopathy. Assessment and Plan (1) Intractable nausea and vomiting: Status: Acute (2) Abdominal pain: Qualifiers: Abdominal location: generalized Qualified Code(s): R10.84 - Generalized abdominal pain Status: Acute (3) Acute kidney injury superimposed on CKD: Status: Acute A 30 years old male with PMH of cocaine abuse, cyclic vomiting syndrome who presented to the hospital complaining of intractable nausea and vomiting for the last few days. Intractable nausea and vomiting Cyclic vomiting syndrome Advised to quit marijuana Zofran and Reglan for nausea IV fluid with D5 half-normal saline Start with clear diet Goldy I on CKD Gentle hydration next [place] creatinine of 1.5 Hypokalemia Potassium 3.1, replacement given DVT PPX Early ambulation
[2021-03-22 17:44] VITALS: BP 138/92; PULSE 76; RESP 20; TEMP 36.8; O2SAT 100
--- NOTE | 2021-03-22 18:19 | PC.NURSE ---
EKG DONE,DR GÓMEZ AWARE OF RESULTS.
[2021-03-22] MEDS: Prochlorperazine Edisylate 10 MG/2 ML VIAL 5 MG IVPUSH (22:25)
[2021-03-22] MEDS: Acetaminophen 325 MG TABLET 650 MG PO (22:50)
[2021-03-23] VITALS: BP 147/87; PULSE 77; RESP 16; TEMP 37; O2SAT 100
--- NOTE | 2021-03-23 | ECG_ITS ---
Test Reason : cp Blood Pressure : / mmHG Vent. Rate : 080 BPM Atrial Rate : 080 BPM P-R Int : 126 ms QRS Dur : 100 ms QT Int : 358 ms P-R-T Axes : 073 074 018 degrees QTc Int : 412 ms Normal sinus rhythm Minimal voltage criteria for LVH, may be normal variant Borderline ECG No previous ECGs available Referred By: Guzman Burch Electronically Signed By:ANA SHARP MD
[2021-03-23] MEDS: Morphine Sulfate 2 MG/ML CARTRIDGE IVPUSH ×3 (00:18→13:21)
[2021-03-23] MEDS: Magnesium Hydrox/Alum Hydrox 30 ML ORAL.SUSP PO (02:42)
[2021-03-23 03:11] LABS: Troponin-I High Sensitivity 3.8 ng/L (<3.5-35.0)
[2021-03-23 05:09] LABS: MANUAL DIFF FLAG NO
[2021-03-23 05:12] LABS: Basophils Percent Auto 0.1 % (0-2); Eosinophils Percent Auto 0.1 % (0-4); Hematocrit 43.3 % (42-52); Hemoglobin 14.2 g/dl (14.0-18.0); Imm Gran Abs Auto 0.02 X10*3/uL (0.00-0.03); Imm Gran Pct Auto 0.2 % (0.0-0.4); Lymphocytes Absolute Auto 1.6 X10*3/uL (1.2-4.9); Lymphocytes Percent Auto 19.9 % (20-40); Mean Corpuscular HGB Conc 32.8 g/dl (31.0-36.0); Mean Corpuscular Hemoglobin 26.8 pg (27.0-33.0); Mean Corpuscular Volume 81.7 fL (80-98); Mean Platelet Volume 10.2 fL (9.4-12.4); Monocytes Absolute Auto 0.8 X10*3/uL (0.1-1.2); Monocytes Percent Auto 9.5 % (2-11); Neutrophils Absolute Auto 5.7 X10*3/uL (2.0-8.3); Neutrophils Percent Auto 70.2 % (45-73); Platelet Count 226 X10*3/uL (160-400); Red Cell Distribution Width 12.7 % (11.0-16.0); White Blood Count 8.2 X10*3/uL (4.8-10.8)
[2021-03-23] MEDS: ondansetron HCL 4 MG/2 ML VIAL IVPUSH (05:12)
[2021-03-23] MEDS: Dextrose 5 % and 0.45 % NaCl 1,000 ML 100 ML IVCONT (05:12)
[2021-03-23 05:46] LABS: Anion Gap 11 (12-20); Blood Urea Nitrogen 13 mg/dL (9-16); Calcium 9.3 mg/dL (8.4-10.2); Carbon Dioxide 28 mmol/L (22-29); Chloride 102 mmol/L (96-108); Creatinine Clr Calc Pharmacy 101.1; Estimated Glomerular Filt Rate > 60; Glucose Random 126 mg/dL (60-115); Potassium 3.3 mmol/L (3.3-5.1); Sodium 138 mmol/L (135-145)
[2021-03-23 07:58] VITALS: BP 132/80; PULSE 74; RESP 17; TEMP 37.1; O2SAT 98
[2021-03-23] MEDS: Omeprazole 40 MG CAPSULE.DR PO ×2 (09:34→18:07)
--- NOTE | 2021-03-23 10:06 | MHC.CM.PN ---
NURSE PRESS TENDER NOTE ELECTRONIC MEDICAL RECORD REVIEWED ALONG WITH CASE DISCUSSED WITH STAFF NURSE MET WITH PATIENT HE REPORTED HE LIVES WITH HIS ROOMATE AND GIRLFRIEND , HE IS ACTIVE, INDEPENDENT IN ALL ADLS AND MOBILITY HE IS UNEMPLOYED, AT PRESENT. HE HAS NO VNA /NO DME SERVICES IN THE HOME. HE REPORTED TO USING COCAINE AND MARIJUANA AND SOME ETOH. INIATED CARE TEAM REFERRAL PATIENT WAS ADMITTED WITH THE DIAGNOSIS OF CYCLIC NAUSEA AND EMESIS DISCHARGE PLAN HOME WITH NO SERVICES CARE TEAM TO MEET WITH PATIENT AND MAKE RECOMENDATIONS IF PATIENT IS ACCEPTING OF THIS PCP AT THE [facility] TO CHECK FOR PCP TRANSPORTATION FAMILY/FRIENDS
[2021-03-23] MEDS: Metoclopramide HCl 5 MG TABLET PO ×3 (11:29→20:19)
[2021-03-23 11:34] VITALS: BP 140/75; PULSE 80; RESP 18; TEMP 36.8; O2SAT 99
--- NOTE | 2021-03-23 11:50 | HO.PM.IMPN ---
Subjective Subjective Date of Service: 03/23/21 Interval History: the patient was seen and evaluated this morning Laying in bed, feels better today but still complaining of significant nausea Able to tolerate clear liquids Denies any fever, chills or shortness of breath No reported other overnight events. Systemic review: No fever, chills and reporting generalized weakness No chest pain, palpitation No shortness of breath or coughing Mild abdominal pain, significant but improving nausea or vomiting No urinary symptoms No any rash or wounds Physical Exam Vital Signs: Vital Signs: Last Vital Signs Temp 98.3 F 03/23/21 11:34 Pulse 80 03/23/21 11:34 Resp 18 03/23/21 11:34 BP 140/75 H 03/23/21 11:34 Pulse Ox 99 03/23/21 11:34 Body Mass Index 29.9 Const: Other: Constitutional : Alert, oriented, in mild distress Neck : Normal inspection, Supple Cardiovascular : RRR, S1 S2, no lower extremity edema Respiratory : Good bilateral air entry, no crackles, wheezes or rhonchi Gastrointestinal: soft, lax, Normal bowel sounds, Non tender Skin : Warm/Dry, No rash Neurological : Alert & oriented x3, No focal deficit Objective Data Current Medications Generic Name Dose Route Start Last Admin Trade Name Freq PRN Reason Stop Dose Admin Acetaminophen 650 mg 03/22/21 15:02 03/22/21 22:50 Acetaminophen 325 Mg Tablet PO 650 mg Q6H PRN Administration Pain, Mild (Pain Scale 1-3) Al Hydroxide/Mg Hydroxide 30 ml 03/23/21 02:12 03/23/21 02:42 Magnesium Hydrox/Alum Hydrox 30 Ml Oral.Susp PO 30 ml Q4H PRN Administration Heartburn Dextrose/Sodium Chloride 1,000 mls @ 150 mls/hr 03/22/21 13:30 03/23/21 11:48 D51/2ns IVCONT 150 mls/hr .Q6H40M VINAYAK Infusion Metoclopramide HCl 5 mg 03/23/21 11:30 03/23/21 11:29 Metoclopramide Hcl 5 Mg Tablet PO 5 mg QIDACHS VINAYAK Administration Morphine Sulfate 2 mg 03/22/21 17:45 03/23/21 06:00 Morphine Sulfate 2 Mg/Ml Cartridge IVPUSH 2 mg Q6H PRN Administration Pain, Severe (Pain Scale 7-10) Omeprazole 40 mg 03/23/21 07:55 03/23/21 09:34 Omeprazole 40 Mg Capsule. PO 40 mg BID@0630,1630 [facility] Administration Ondansetron HCl 4 mg 03/22/21 13:24 03/23/21 05:12 Ondansetron Hcl 4 Mg/2 Ml Vial IVPUSH 4 mg Q8H PRN Administration Nausea and Vomiting Sodium Chloride 3 ml 03/22/21 16:00 03/23/21 07:51 0.9 % Sodium Chloride Flush 3 Ml Syringe IVFLUSH Not Given QSHIFT [facility] Labs CBC & Chem 7: 03/23/21 05:04 03/23/21 05:04 Assessment and Plan (1) Intractable nausea and vomiting: Status: Acute (2) Abdominal pain: Status: Acute (3) Acute kidney injury superimposed on CKD: Status: Acute Assessment and Plan: A 30 years old male with PMH of cocaine abuse, cyclic vomiting syndrome who presented to the hospital complaining of intractable nausea and vomiting for the last few days. Intractable nausea and vomiting Cyclic vomiting syndrome Advised to quit marijuana Zofran for nausea Add Reglan ATC around meals IV fluid with D5 half-normal saline Continue with clear diet Goldy I on CKD Resolved Continue hydration and monitor BMP Hypokalemia Resolved DVT PPX Early ambulation
[2021-03-23 15:46] VITALS: BP 145/74; PULSE 74; RESP 15; TEMP 37.1; O2SAT 99
--- NOTE | 2021-03-23 17:10 | MHC.RECOVSUP ---
Recovery Support note: Patient is a 30 year old Central African speaking male who presented to [facility] ED due to nausea/ vomiting and abdominal pain. Patient was medically admitted. This speech writer met with patient to discuss his substance use and recovery supports. Patient acknowledges that his cannabis use is the source of his abdominal pain. Patient reports smoking several large blunts a day prior to the onset of symptoms - about $30 a day in cannabis. Patient reports he plans to avoid smoking entirely and he does not anticipate any difficulty doing so. Patient reports that he never wants to experience this pain again and that he is convinced it is due to his smoking. Patient reports he is unemployed and has been smoking due to boredom. Patient also reports it helps him sleeps. Discussed with patient that he may find it difficult to sleep for the first week but that it will get easier and he will not need cannabis to sleep. Discussed alternative methods to improve sleep. Patient reports he may try edibles if he still cannot sleep after several weeks but he is hopeful he will not have to do that. Patient reports I stopped using cocaine without any problems, I'll be able to stop this. Patient reports his girlfriend does not smoke and she is supportive. Discussed recovery supports with patient including recovery coaching and online support groups. Discussed case with patient's RN.
[2021-03-23] MEDS: Dextrose 5 % and 0.45 % NaCl 1,000 ML 150 ML IVCONT (20:18)
[2021-03-23] MEDS: diphenhydrAMINE HCL 50 MG/ML VIAL 25 MG IVPUSH (21:55)
[2021-03-24] VITALS: BP 143/68; PULSE 75; RESP 16; TEMP 37.6; O2SAT 99
[2021-03-24] MEDS: Dextrose 5 % and 0.45 % NaCl 1,000 ML 150 ML IVCONT (03:29)
[2021-03-24 06:34] LABS: Anion Gap 12 (12-20); Blood Urea Nitrogen 14 mg/dL (9-16); Calcium 9.5 mg/dL (8.4-10.2); Carbon Dioxide 30 mmol/L (22-29); Chloride 102 mmol/L (96-108); Creatinine Clr Calc Pharmacy 80.7; Estimated Glomerular Filt Rate > 60; Glucose Random 108 mg/dL (60-115); Potassium 3.5 mmol/L (3.3-5.1); Sodium 140 mmol/L (135-145)
[2021-03-24] MEDS: Omeprazole 40 MG CAPSULE.DR PO (06:40)
[2021-03-24 07:03] VITALS: BP 141/83; PULSE 64; RESP 18; TEMP 35.8
[2021-03-24] MEDS: Metoclopramide HCl 5 MG TABLET PO (09:09)
[2021-03-24] MEDS: 0.9 % Sodium Chloride Flush 3 ML SYRINGE IVFLUSH (09:10)
--- NOTE | 2021-03-24 10:45 | PM.DS ---
DS: Providers Provider Date of Service: 03/24/21 Date of admission: 03/22/21 13:24 Primary care physician: Unknown Physician Consults: 03/23/21 09:59 Consult to Care Team Routine Comment: Reason for consultation: HX COCAINE , MARIJUANA RECENTLY IN FOR CYCLIC N/EMESISI PLEASE SEE 03/23/21 11:51 Consult to Care Team Routine Comment: Reason for consultation: Recurrent cyclic vomiting syndrome secondary to marijuana abuse DS: Diagnosis Discharge Diagnosis (1) Intractable nausea and vomiting: Status: Acute (2) Abdominal pain: Status: Acute (3) Acute kidney injury superimposed on CKD: Status: Acute (4) Cannabinoid hyperemesis syndrome: Status: Acute DS: Medications Discharge Medications Home Medications: Previous Rx's Medication Instructions Recorded famotidine 20 mg PO BID PRN 30 Days #60 tab 11/07/20 ondansetron 4 mg PO Q6H PRN #30 tab 11/07/20 prochlorperazine 25 mg [place] Q8H PRN 4 Days #12 supp 03/21/21 metoclopramide HCl 5 mg PO QIDACHS PRN #20 tab 03/24/21 omeprazole 40 mg PO DAILY 30 Days #30 cap 03/24/21 DS: Summary Hospital Course Hospital Course: Admission note HPI A 30 years old male with PMH of cocaine abuse, cyclic vomiting syndrome who presented to the hospital complaining of intractable nausea and vomiting for the last few days. He reported smoking marijuana 5 days ago and starting to have symptoms of nausea and vomiting since then. He went to [facility] and came to this hospital emergency before and was discharged home hold the time. He reported he could not tolerate any oral diet and continued to vomit despite trying multiple medications they were giving the him. Denies any fever, chills, chest pain, palpitation, shortness of breath or any urinary symptoms. In the emergency he was found to have hypokalemia, mildly worsen kidney. CT scan of the abdomen pelvis was negative for any acute findings. Admitted to the hospital for further evaluation and treatment. Hospital course The patient was admitted to the hospital and treated with IV fluid, nausea medications of Zofran as needed and Reglan around the clock with good response over the course of hospital stay as nausea and vomiting resolved. And he was able to tolerate diet. Advised about the need of quitting smoking marijuana. He understand the risk. To be discharged home on Reglan and omeprazole Time Spent with Patient Time attestation: Total time spent providing and/or coordinating discharge services: Discharge coordination time: Greater than 30 minutes Quality: Stroke Does the patient have a stroke diagnosis?: No Physical Exam Vital Signs: Vital Signs: Last Vital Signs Temp 96.5 F L 03/24/21 07:03 Pulse 64 03/24/21 07:03 Resp 18 03/24/21 07:03 BP 141/83 H 03/24/21 07:03 Pulse Ox 99 03/24/21 00:00 Body Mass Index 29.9 Const: Other: Constitutional : Alert, oriented, in mild distress Neck : Normal inspection, Supple Cardiovascular : RRR, S1 S2, no lower extremity edema Respiratory : Good bilateral air entry, no crackles, wheezes or rhonchi Gastrointestinal: soft, lax, Normal bowel sounds, Non tender Skin : Warm/Dry, No rash Neurological : Alert & oriented x3, No focal deficit DS: Data Data Completed and Pending Labs on day of discharge: Laboratory Results - last 24 hr 03/24/21 05:26 Sodium 140 Potassium 3.5 Chloride 102 Carbon Dioxide 30 H Anion Gap 12 BUN 14 Creatinine 1.34 Estim Creat Clear Calc 80.7 Estimated GFR > 60 Random Glucose [address] scan of abdomen pelvis with IV contrast: Radiologist's impression: ITS Impressions Abdomen/Pelvis CT 03/22/21 09:01 IMPRESSION: 1. No bowel obstruction or focal inflammatory changes. Normal appendix. No ascites. 2. 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 3. Multiple nonspecific small mesenteric nodes in retrospect stable from prior exams 2019 and 2015. No bulky adenopathy. No retroperitoneal or pelvic adenopathy. Discharge Plan Discharge Patient Disposition: Home, Self-Care Discharge Diagnosis: Nausea and vomiting Referrals: Physician,Unknown [Primary Care Provider] - 1 Week Discharge Medications: New omeprazole 40 mg Capsule,Delayed Release(Dr/Ec) 40 mg PO DAILY 30 Days Qty: 30 RF: 0 metoclopramide HCl 5 mg Tablet 5 mg PO QIDACHS PRN (Reason: Nausea And Vomiting) Qty: 20 RF: 0 Continued famotidine 20 mg Tablet 20 mg PO BID PRN (Reason: Acid Reflux) 30 Days Qty: 60 RF: 0 ondansetron 4 mg tablet,disintegrating 4 mg PO Q6H PRN (Reason: nausea/vomiting) Qty: 30 RF: 0 prochlorperazine 25 mg suppository 25 mg [place] Q8H PRN (Reason: nausea and vomiting) 4 Days Qty: 12 RF: 0 Discharge Orders: Discharge Order (Routine); Ordered 03/24/21 Ordered By: Katina Luis Diet: advance to usual diet Activity on Discharge: As tolerated Stand Alone Forms: Patient Portal Discharge page Care Plan Goals: Read below Health Concerns: Read below Plan of Treatment: You were admitted to the hospital for treatment of nausea and vomiting. We believe it is a result of marijuana smoking. You were treated with IV fluid and nausea medication with good response over the course of hospital stay. Assessment: Advance your diet slowly over the next few days. Use Reglan 1/2 hour before meals. Avoid smoking marijuana
--- NOTE | 2021-03-24 11:37 | MHC.CM.PN ---
nurse primary health care nurse note electronic medical record and dischagre instructions reviewed met with patient , he has meet with recovery support team dustin patient discussed recovery supports including coach professional athletes and online community supports home no services pcp at the [facility] patient to call for post hospitla dischagre transportation family
== END 2021-03-24 13:04 | disposition home or self-care (01) | DRG 812 ==
LOC: HO.ED 08:48 → HO.EDOVER 14:01 → HO.S3 15:17
PROVIDERS: Internal Medicine; Physician Assistant Medical; Admitting Provider Student in an Organized Health Care Education/Training Program; Emergency Provider Emergency Medicine Emergency Medical Services; Visit Provider Student in an Organized Health Care Education/Training Program
DX: T40.7X1A Poisoning by cannabis (derivatives), accidental (unintentional), initial encounter (principal); N17.9 Acute kidney failure, unspecified; R11.2 Nausea with vomiting, unspecified; E87.6 Hypokalemia; F17.210 Nicotine dependence, cigarettes, uncomplicated; N18.9 Chronic kidney disease, unspecified; Y92.9 Unspecified place or not applicable; Z20.822 Contact with and (suspected) exposure to COVID-19; Z71.6 Tobacco abuse counseling; Z79.899 Other long term (current) drug therapy
CPT/HCPCS: 0241U; 36415; 74177; 80048; 80053; 80307; 80320; 81003; 83690; 83735; 84484; 85025; 93005; 96374; 96375; 99218; 99285; 99291; J1200; J1885; J2270; J2405; J2550; J2765; Q9967

== ENCOUNTER 2021-04-10 20:29 | Emergency (ER) | payer MEDICAID, SELFPAY ==
[2021-04-10 20:57] VITALS: BP 116/66; PULSE 90; RESP 16; TEMP 36.1; O2SAT 100; BMI 30.8
--- NOTE | 2021-04-10 22:15 | ED.WOUNDLAC ---
HPI - Wound/Laceration General Chief Complaint: Wound/Laceration Stated Complaint: HAND LAC Time Seen by Provider: 04/10/21 22:15 Source: patient Mode of arrival: ambulatory Limitations: no limitations History of Present Illness HPI narrative: Patient got superficial laceration to right thumb what what washing dishes and cup broke. Also has superficial laceration on the dorsum of the hand no other injury Related Data Previous Rx's Medication Instructions Recorded famotidine 20 mg PO BID PRN 30 Days #60 tab 11/07/20 ondansetron 4 mg PO Q6H PRN #30 tab 11/07/20 prochlorperazine 25 mg [place] Q8H PRN 4 Days #12 supp 03/21/21 metoclopramide HCl 5 mg PO QIDACHS PRN #20 tab 03/24/21 omeprazole 40 mg PO DAILY 30 Days #30 cap 03/24/21 Allergies Allergy/AdvReac Type Severity Reaction Status Date / Time No Known Allergies Allergy Verified 03/19/21 17:27 [No Known Allergies*] Review of Systems Review of Systems: Yes all other systems are reviewed and are negative PMFSH Past Medical History Medical History Abdominal pain Cannabinoid hyperemesis syndrome Cocaine abuse No known health problems Pneumomediastinum Pneumothorax Social History Social History Household Members: Family Housing: Apartment Do you presently have visiting nurse or other home services: No Alcohol intake: current Alcohol intake frequency: a few times a week Alcohol type: wine Second Hand Smoke Exposure: No Substance Use Type: Marijuana Advance Directives: Yes Advance Directives on File: Yes Advance Directives Date on File: 03/22/21 service: No Current occupational status: unemployed Physical Exam Vital Signs: Vital Signs: Last Vital Signs Temp 97.0 F 04/10/21 20:57 Pulse 90 04/10/21 20:57 Resp 16 04/10/21 20:57 BP 116/66 04/10/21 20:57 Pulse Ox 100 04/10/21 20:57 Body Mass Index 30.8 Const: General: comfortable and no acute distress Extrem: Hand/finger images: 1. Superficial flap laceration at base of right thumb 2 cm in length 2. Superficial laceration the dorsum of the hand 1 cm in length Procedures Laceration Laceration 1: Site: hand Side (If applicable): right Size (cm): 2 Description: flap Size (cm): other (Dermabond) Laceration 2: Site: hand Side (If applicable): right Size (cm): 1 Description: other Size (cm): other (Dermabond) Discharge Plan Discharge Clinical Impression: Laceration Patient Disposition: Home, Self-Care Instructions: Finger Laceration (ED) Additional Instructions: Local care as advised Avoid water contact till heals completely Prescriptions: No Action famotidine 20 mg Tablet 20 mg PO BID PRN (Reason: Acid Reflux) 30 Days Qty: 60 RF: 0 ondansetron 4 mg tablet,disintegrating 4 mg PO Q6H PRN (Reason: nausea/vomiting) Qty: 30 RF: 0 prochlorperazine 25 mg suppository 25 mg MT Q8H PRN (Reason: nausea and vomiting) 4 Days Qty: 12 RF: 0 omeprazole 40 mg Capsule,Delayed Release(Dr/Ec) 40 mg PO DAILY 30 Days Qty: 30 RF: 0 metoclopramide HCl 5 mg Tablet 5 mg PO QIDACHS PRN (Reason: Nausea And Vomiting) Qty: 20 RF: 0
[2021-04-10] MEDS: Diphth,Pertus(ACell),Tet Adult 0.5 ML SYRINGE IM (22:52)
== END 2021-04-10 23:00 | disposition home or self-care (01) ==
PROVIDERS: Emergency Provider Internal Medicine; PCP Nurse Practitioner Primary Care
DX: S61.011A Laceration without foreign body of right thumb without damage to nail, initial encounter (principal); W25.XXXA Contact with sharp glass, initial encounter; Y93.G1 Activity, food preparation and clean up; Y92.010 Kitchen of single-family (private) house as the place of occurrence of the external cause; Y99.9 Unspecified external cause status; F14.10 Cocaine abuse, uncomplicated; F12.90 Cannabis use, unspecified, uncomplicated
CPT/HCPCS: 12001; 90471; 90715; 99283; 99284

== ENCOUNTER 2022-06-05 16:16 | Emergency (ER) | payer MEDICAID, SELFPAY ==
[2022-06-05 16:18] VITALS: BP 138/88; PULSE 83; RESP 18; TEMP 36.7; O2SAT 99; BMI 29.9
--- NOTE | 2022-06-05 18:25 | MHC.RECOVSUP ---
? Reason for consult Recovery Support o Current location: ED11 o Identified substance use concern: N/A - Support ? Intervention: o Community resources provided o Harm reduction discussion ? Plan: o Follow up tomorrow o Patient awaiting crisis evaluation o Patient to follow up with [facility] after discharge ? Additional information: Patient was given resources to detox and [facility].. Patient dont want any help at this moment.. N will be seeing patient per doctor request
--- NOTE | 2022-06-05 18:34 | ED_ITS ---
HPI - Psych General Chief Complaint: Psychiatric Symptoms Stated Complaint: self inflicted/ crisis Time Seen by Provider: 06/05/22 16:25 Source: patient Mode of arrival: ambulatory Limitations: no limitations History of Present Illness HPI Narrative: Patient comes emergency room complaining of a laceration to the right ear. Patient states that he smashed a broken bottle and lacerated in intentionally. Patient states that he did not try to commit suicide, patient did as a cry for help. Patient requesting detox for cocaine and alcohol. Patient denies suicidal or homicidal ideation. Patient denies any other injuries. Related Data Previous Rx's Medication Instructions Recorded famotidine 20 mg tablet 20 mg PO BID PRN Acid Reflux 30 11/07/20 days #60 tabs ondansetron 4 mg disintegrating 4 mg PO Q6H PRN nausea/vomiting 11/07/20 tablet #30 tabs prochlorperazine 25 mg rectal 25 mg [place] Q8H PRN nausea and 03/21/21 suppository vomiting 4 days #12 supp metoclopramide HCl 5 mg tablet 5 mg PO QIDACHS PRN Nausea And 03/24/21 Vomiting #20 tabs omeprazole 40 mg capsule,delayed 40 mg PO DAILY 30 days #30 caps 03/24/21 release Allergies Allergy/AdvReac Type Severity Reaction Status Date / Time No Known Allergies Allergy Verified 06/05/22 16:18 [No Known Allergies*] Review of Systems Review of Systems: Constitutional : No Weight loss, No Fever, No Chills, No Night Sweats, No Fatigue, No Malaise ENT/Mouth : No Hearing loss, No Ear Pain, No Nasal Congestion, No Sinus Pain, No Hoarseness, No sore throat, No Rhinorrhea, No Swallowing Difficulty Eyes: No Eye Pain, No Swelling, No Redness, No Foreign Body, No Discharge, No Vision Changes Cardiovascular : No Chest Pain, No SOB, No Dyspnea on Exertion, No Orthopnea, No Edema, No Palpitations Respiratory : No Cough, No Sputum, No Wheezing, No Smoke Exposure, No Dyspnea Gastrointestinal : No Nausea, No Vomiting, No Diarrhea, No Constipation, No abdominal Pain, No Hematochezia, No Melena Genitourinary : no irregular bleeding, No Dysuria, No Urinary Frequency, No Hematuria, No Urinary Incontinence, No Urgency, No Flank Pain, No Urinary Flow Changes, No Hesitancy Musculoskeletal : No joint pain, No Myalgias, No Joint Swelling Skin : Large laceration to the right ear Neuro : No Weakness, No Numbness, No Paresthesias, No Loss of Consciousness, No Dizziness, No Headache Psych : No Anxiety/Panic, No Depression, No SI/HI/AH/VH, complaining of alcohol and drug problems Heme/Lymph: No Bruising, No Bleeding,No Lymphadenopathy Endocrine : No Polyuria, No Polydipsia, No Temperature Intolerance [facility] Past Medical History Medical History Abdominal pain Cannabinoid hyperemesis syndrome Cocaine abuse No known health problems Pneumomediastinum Pneumothorax Social History Social History Household Members: Family Housing: Apartment Do you presently have visiting nurse or other home services: No Alcohol intake: current Alcohol intake frequency: a few times a week Alcohol type: wine Second Hand Smoke Exposure: No Substance Use Type: Marijuana Advance Directives: No Advance Directives Information Provided: No Advance Directives Date on File: 03/22/21 service: No Current occupational status: unemployed Physical Exam Vital Signs: Vital Signs: Last Vital Signs Temp 98.0 F 06/05/22 16:18 Pulse 83 06/05/22 16:18 Resp 18 06/05/22 16:18 BP 138/88 06/05/22 16:18 Pulse Ox 99 06/05/22 16:18 O2 Del Method 06/05/22 16:18 BMI result Body Mass Index 29.9 Const: Other: Appearance: Alert. Oriented X3. No acute distress. Eyes: Pupils equal, round and reactive to light. ENT: Pharynx normal. Neck: Normal inspection. Neck supple. No lymph nodes noted. No crepitus CVS: Normal heart rate and rhythm. Pulses normal. Normal S1 and S2 Respiratory: No respiratory distress. Breath sounds normal. No Wheezing. No rales Abdomen: Soft and nontender. No rigidity. No distention. Skin: Skin warm and dry. Large laceration to the right ear to the tragus going down the intertragal notch Extremities: No lower extremity edema. No Lacerations. No Rash Neuro: Oriented X 3. No motor deficit. No sensory deficit. Moving all extremities. No slurred speech. CN 2 through 12 grossly intact Psych: calm, cooperative, normal affect Course Course Course Narrative: The care team tried to evaluate the patient, patient was too somnolent to have any coherent conversation. Patient received 7 stitches to the right ear externally. Patient mentioned that he is not suicidal or homicidal. Patient is currently sleeping. Patient to be reassessed by [facility] Physician insert patient started at 19:00 MDM - Psych Lab Data Result diagrams: 06/05/22 19:13 06/05/22 19:13 Labs: Lab Results 06/05/22 Range/Units 19:13 WBC 6.8 (4.8-10.8) X10*3/uL RBC 4.87 (4.60-5.80) X10*6/uL Hgb 13.1 L (14.0-18.0) g/dl Hct 40.3 L (42.0-52.0) % MCV 82.8 (80.0-98.0) fL MCH 26.9 L (27.0-33.0) pg MCHC 32.5 (31.0-36.0) g/dl RDW 13.7 (11.0-16.0) % Plt Count 220 (160-400) X10*3/uL MPV 10.0 (9.4-12.4) fL Immature Gran % (Auto) 0.1 (0.0-0.4) % Neut % (Auto) 54.0 (45-73) % Lymph % (Auto) 37.0 (20-40) % [place] % (Auto) 8.3 (2-11) % Eos % (Auto) 0.3 (0-4) % Baso % (Auto) 0.3 (0-2) % Lymph # (Auto) 2.5 (1.2-4.9) X10*3/uL [place] # (Auto) 0.6 (0.1-1.2) X10*3/uL Eos # (Auto) 0.0 (0.0-0.4) X10*3/uL Baso # (Auto) 0.0 (0.0-0.2) X10*3/uL Abs Immat Gran (auto) 0.01 (0.00-0.03) X10*3/uL Absolute Neuts (auto) 3.7 (2.0-8.3) x10*3/uL Absolute Nucleated RBC 0.000 (0.0-0.012) X10*3/uL Nucleated RBC % (auto) 0.0 (0.0-0.2) /100WBC Discharge Plan Discharge Clinical Impression: Laceration of ear region, Substance abuse Patient Disposition: Still a Patient Prescriptions: No Action famotidine 20 mg Tablet 20 mg PO BID PRN (Reason: Acid Reflux) 30 Days Qty: 60 0RF ondansetron 4 mg tablet,disintegrating 4 mg PO Q6H PRN (Reason: nausea/vomiting) Qty: 30 0RF prochlorperazine 25 mg suppository 25 mg [place] Q8H PRN (Reason: nausea and vomiting) 4 Days Qty: 12 0RF omeprazole 40 mg Capsule,Delayed Release(Dr/Ec) 40 mg PO DAILY 30 Days Qty: 30 0RF metoclopramide HCl 5 mg Tablet 5 mg PO QIDACHS PRN (Reason: Nausea And Vomiting) Qty: 20 0RF
[2022-06-05 19:32] LABS: Basophils Percent Auto 0.3 % (0-2); Eosinophils Percent Auto 0.3 % (0-4); Hematocrit 40.3 % (42.0-52.0); Hemoglobin 13.1 g/dl (14.0-18.0); Imm Gran Abs Auto 0.01 X10*3/uL (0.00-0.03); Imm Gran Pct Auto 0.1 % (0.0-0.4); Lymphocytes Absolute Auto 2.5 X10*3/uL (1.2-4.9); MANUAL DIFF FLAG NO; Mean Corpuscular HGB Conc 32.5 g/dl (31.0-36.0); Mean Corpuscular Hemoglobin 26.9 pg (27.0-33.0); Mean Corpuscular Volume 82.8 fL (80.0-98.0); Monocytes Absolute Auto 0.6 X10*3/uL (0.1-1.2); Monocytes Percent Auto 8.3 % (2-11); Neutrophils Absolute Auto 3.7 x10*3/uL (2.0-8.3); Platelet Count 220 X10*3/uL (160-400); Red Blood Count 4.87 X10*6/uL (4.60-5.80); Red Cell Distribution Width 13.7 % (11.0-16.0); White Blood Count 6.8 X10*3/uL (4.8-10.8)
[2022-06-05 19:40] LABS: COVID-19 Test Negative (Negative)
[2022-06-05 20:09] VITALS: BP 135/75; PULSE 76; RESP 14; TEMP 36.7; O2SAT 98
[2022-06-05 20:13] LABS: Alanine Aminotransferase 21 U/L (0-40); Albumin Level 4.9 g/dL (3.5-5.0); Alkaline Phosphatase 75 U/L (39-117); Anion Gap 17 (12-20); Aspartate Amino Transferase 30 U/L (5-37); Bilirubin Direct 0.3 mg/dL (0.0-0.5); Bilirubin Total 0.5 mg/dL (0.0-1.0); Blood Urea Nitrogen 10 mg/dL (9-16); Calcium 9.4 mg/dL (8.4-10.2); Carbon Dioxide 26 mmol/L (22-29); Chloride 105 mmol/L (96-108); Creatinine Clr Calc Pharmacy 101.1; Estimated Glomerular Filt Rate > 60; Ethanol 93 mg/dL; Glucose Random 84 mg/dL (60-115); Sodium 144 mmol/L (135-145); Total Protein 7.2 g/dL (6.5-8.0)
--- NOTE | 2022-06-05 20:40 | PC.NURSE ---
URINE COLLECTED AND SENT TO THE LAB
--- NOTE | 2022-06-05 20:40 | PC.NURSE ---
BELONGINGS AND BELONGINGS LIST COMPLETED. WILL HAVE PATIENT ITEMS STORED IN ASSIGNED SECURE AREA
--- NOTE | 2022-06-05 20:41 | PC.NURSE ---
PT REMAINS A SAFETY WATCH AT THIS TIME. HAND WOVEN CARPET AND RUG MENDER TRIPP THE CONSTANT OBS
[2022-06-05 20:46] LABS: Appearance Urine CLEAR; Color Urine YELLOW; Glucose Urine UA NEG (NEG); Leukocyte Esterase Urine NEG (NEG); Nitrite Urine NEG (NEG); PH 6.5 (5.0-8.0); Specific Gravity - Urine 1.015 (1.005-1.025); Urine Blood NEG (NEG); Urine Ketones NEG (NEG); Urine Protein NEG (NEG-TRACE)
[2022-06-05 21:03] LABS: Amphetamine Screen Urine Not Detected (Not Detect); Barbiturates, Urine Not Detected (Not Detect); Benzodiazepines Screen Urine Not Detected (Not Detect); Cannabinoid Screen Urine POSITIVE (Not Detect); Cocaine Screen Urine POSITIVE (Not Detect); Fentanyl, urine Not Detected (Not Detect); Opiate Screen Urine Not Detected (Not Detect); Phencyclidine Screen Urine Not Detected (Not Detect)
--- NOTE | 2022-06-05 21:21 | PC.NURSE ---
PT RESTING COMFORTABLY AT THIS TIME, RESP EFFORT UNLABORED REG NO USE OF ACCESSORY MUSCLES PRESENT
[2022-06-05 23:38] VITALS: BP 147/95; PULSE 96; RESP 16; TEMP 36.4; O2SAT 98
[2022-06-06] MEDS: Lidocaine HCl 2 % 20 ML VIAL INFILTRATI (00:02)
[2022-06-06] MEDS: Lidocaine HCl 2 % 20 ML VIAL SUBCUT (00:03)
[2022-06-06] MEDS: Lidocaine HCl 1 % MPF 5 ML VIAL 2 ML SUBCUT (00:03)
[2022-06-06 06:41] VITALS: BP 132/78; PULSE 71; RESP 17; TEMP 37.3; O2SAT 99
--- NOTE | 2022-06-06 06:55 | PC.NURSE ---
Patient slept thorough the night, no distress observed/reported, asymptomatic of ETOH withdrawal, VSS, care team will see the patient in the morning for risk assessment, patient is currently not on any medication currently, will continue to monitor.
--- NOTE | 2022-06-06 07:24 | PC.NURSE ---
patient appears to remain at rest at present respirations are even and unlabored patient appears in no distress
== END 2022-06-06 09:51 | disposition home or self-care (01) ==
PROVIDERS: Emergency Provider Emergency Medicine; PCP Nurse Practitioner Primary Care
DX: S01.311A Laceration without foreign body of right ear, initial encounter (principal); X78.0XXA Intentional self-harm by sharp glass, initial encounter; Y93.9 Activity, unspecified; Y92.9 Unspecified place or not applicable; Y99.9 Unspecified external cause status; F14.10 Cocaine abuse, uncomplicated; F10.10 Alcohol abuse, uncomplicated; Y90.9 Presence of alcohol in blood, level not specified; Z20.822 Contact with and (suspected) exposure to COVID-19; Z79.899 Other long term (current) drug therapy; Z71.51 Drug abuse counseling and surveillance of drug abuser
CPT/HCPCS: 12013; 80048; 80076; 80307; 81003; 82077; 85025; 87635; 99284; 99285

== ENCOUNTER 2023-03-25 10:45 | Emergency (ER) | payer MEDICAID, SELFPAY ==
[2023-03-25 10:49] VITALS: BP 145/81; PULSE 94; RESP 16; TEMP 36.6; O2SAT 100; BMI 26.6
== END 2023-03-25 12:50 | disposition left against medical advice (07) ==
PROVIDERS: Emergency Provider Emergency Medicine
DX: R44.0 Auditory hallucinations (principal); R44.1 Visual hallucinations; S09.90XA Unspecified injury of head, initial encounter; X58.XXXA Exposure to other specified factors, initial encounter; Y93.9 Activity, unspecified; Y92.9 Unspecified place or not applicable; Y99.9 Unspecified external cause status
CPT/HCPCS: 99281

== ENCOUNTER 2023-03-31 11:13 | Emergency (ER) | payer MEDICAID, SELFPAY ==
[2023-03-31 11:21] VITALS: PULSE 66; PULSE 98; RESP 18; TEMP 36.8; O2SAT 100; BMI 24.5
--- NOTE | 2023-03-31 11:24 | ED.ABDPAIN ---
HPI - Abdominal Pain General Chief Complaint: Abdominal Pain Stated Complaint: abd pain, per ems Time Seen by Provider: 03/31/23 11:17 Source: patient, EMS and old records reviewed Mode of arrival: EMS Limitations: no limitations History of Present Illness HPI narrative: 32-year-old male with history of cannabinoid hyperemesis syndrome, cocaine abuse, history of JOSE who presents to the ER for evaluation of abdominal pain. He has had several ER visits for cyclical vomiting syndrome. He states he developed severe left-sided abdominal pain and nausea 1 hour ago. He denies eating anything today. He states the pain was sudden, severe and has not stopped. He is rolling around on the stretcher in pain. He denies any vomiting. States his last bowel movement was yesterday and it was normal. He admits to intermittent cocaine use and decreased marijuana use but does still use. He denies any chest pain or shortness of breath. MD elicited complaint: abdominal pain Pertinent past history: other (Cyclical vomiting) Onset (ago): hour(s) (1) Pain Consistency: constant Location: LUQ and LLQ Severity: severe Pain scale (0-10): 10 Quality: stabbing Radiation: none Migration to: no migration Exacerbating factors: nothing Relieving factors: nothing Context: history of similar episodes Associated symptoms: nausea Related Data Previous Rx's Medication Instructions Recorded promethazine 12.5 mg rectal 12.5 mg RI Q6H PRN nausea and 03/31/23 suppository vomiting #12 ea Allergies Allergy/AdvReac Type Severity Reaction Status Date / Time No Known Allergies Allergy Verified 03/31/23 11:25 [No Known Allergies*] Review of Systems Review of Systems Yes all other systems are reviewed and are negative [facility] Past Medical History Medical History Abdominal pain Cannabinoid hyperemesis syndrome Cocaine abuse No known health problems Pneumomediastinum Pneumothorax Social History Social History Household Members: Family Housing: Apartment Do you presently have visiting nurse or other home services: No Alcohol intake: current Alcohol intake frequency: a few times a month Alcohol type: beer and wine Patient Tobacco Use Status: Tobacco use Unknown Smoked in Last 30 Days: Yes Second Hand Smoke Exposure: No Use of substances other than those prescribed or required for medical reasons: Yes Substance Use Type: Crack/Cocaine and Marijuana Advance Directives: No Advance Directives Information Provided: No Advance Directives Date on File: 03/22/21 service: No Current occupational status: unemployed Physical Exam ED Vital Signs: Vital Signs - 24 hr 03/31/23 11:21 03/31/23 13:15 03/31/23 14:22 Temperature 98.3 F 97.7 F Pulse Rate 66 60 Respiratory Rate 18 16 16 Blood Pressure 122/52 L Pulse Oximetry 100 99 Oxygen Delivery Method Room Air Room Air 03/31/23 17:00 Temperature 98.6 F Pulse Rate 78 Respiratory Rate 16 Blood Pressure 140/86 H Pulse Oximetry 98 Oxygen Delivery Method Room Air BMI result Body Mass Index 24.5 Appearance: Alert. Oriented X3. Rolling around on the stretcher in pain Head: normocephalic, atraumatic. Eyes: Pupils equal, round and reactive to light. ENT: Pharynx normal. No tonsillar swelling or exudate. Neck: Normal inspection. Neck supple. CVS: Normal heart rate and rhythm. Pulses normal. Respiratory: No respiratory distress. Breath sounds normal. Abdomen: Soft with diffuse tenderness throughout with guarding. Normal active +BS x4 Skin: Skin warm and dry. Normal skin color. Normal skin turgor. No rashes. Extremities: No lower extremity edema. No joint swelling. Neuro/psych: Oriented X 3. Moves all extremities, nonfocal. CN II-XII intact. Normal speech and cognition. Course Reevaluation(s) Reevaluation #1: Patient was sleeping comfortably after Benadryl, Reglan, morphine and Toradol. His lab workup was unremarkable. When he woke up he reports the pain was coming back, he was dry heaving and retching. Intramuscular Haldol was given at 15:40. He is no longer retching Will place patient physician observation to allow more time for the medications to work. Signed out to Chelly JESUS who will f/u and assume care. Time: 16:13 Reevaluation #2: Patient reports ongoing nausea but is no longer vomiting. Will order additional dose of haldol and discharge home with prescription for nausea medication. Also discussed with patient's S.O. that he can take hot showers and purchase OTC capsaicin cream to apply topically to his abdomen. Will refer to GI for further evaluation of symptoms. Time: 17:35 Medical Decision Making Medical Decision Making [facility] Narrative: 32-year-old male with history of polysubstance abuse, cyclical vomiting syndrome presenting to the ER for evaluation of abdominal pain diffuse for the last 1 hour nausea and dry heaving. He is writhing in pain on the bed. Asking for IV medications for his symptoms. IV was established, basic labs were checked which were unremarkable. He was given IV Benadryl, Toradol, Reglan with cessation of his symptoms, slept comfortably. Upon wakening patient reported increase in pain and was retching again. U tox still pending but suspect this is cyclical vomiting. He was given intramuscular Haldol with good affect. Will continue to monitor. Awaiting U tox. Differential Diagnosis Differential Diagnoses: The differential diagnosis associated with the presentation includes Cyclical vomiting syndrome, gastroenteritis, less likely SBO, appendicitis, diverticulitis, cholecystitis Lab Data [facility] Lab Attestation statement: I reviewed the patient's lab results. 03/31/23 11:39 03/31/23 11:39 Labs: Lab Results 03/31/23 03/31/23 03/31/23 Range/Units 11:39 11:39 17:18 WBC 7.0 (4.8-10.8) X10*3/uL RBC 5.21 (4.60-5.80) X10*6/uL Hgb 13.6 L (14.0-18.0) g/dl Hct 42.4 (42.0-52.0) % MCV 81.4 (80.0-98.0) fL MCH 26.1 L (27.0-33.0) pg MCHC 32.1 (31.0-36.0) g/dl RDW 13.3 (11.0-16.0) % Plt Count 270 (160-400) X10*3/uL MPV 10.0 (9.4-12.4) fL Immature Gran % (Auto) 0.4 (0.0-0.4) % Neut % (Auto) 65.2 (45-73) % Lymph % (Auto) 24.2 (20-40) % [place] % (Auto) 9.5 (2-11) % Eos % (Auto) 0.3 (0-4) % Baso % (Auto) 0.4 (0-2) % Lymph # (Auto) 1.7 (1.2-4.9) X10*3/uL [place] # (Auto) 0.7 (0.1-1.2) X10*3/uL Eos # (Auto) 0.0 (0.0-0.4) X10*3/uL Baso # (Auto) 0.0 (0.0-0.2) X10*3/uL Abs Immat Gran (auto) 0.03 (0.00-0.03) X10*3/uL Absolute Neuts (auto) 4.6 (2.0-8.3) x10*3/uL Absolute Nucleated RBC 0.000 (0.0-0.012) X10*3/uL Nucleated RBC % (auto) 0.0 (0.0-0.2) /100WBC Sodium 141 (135-145) mmol/L Potassium 4.0 (3.3-5.1) mmol/L Chloride 105 (96-108) mmol/L Carbon Dioxide 22 (22-29) mmol/L Anion Gap 18 (12-20) BUN 21 H (9-16) mg/dL Creatinine 1.26 (0.5-1.4) mg/dL Estim Creat Clear Calc 74.5 Estimated GFR > 60 Random Glucose 83 (60-115) mg/dL Calcium 10.5 H D (8.4-10.2) mg/dL Magnesium 2.3 (1.6-2.6) mg/dL Total Bilirubin 1.0 (0.0-1.0) mg/dL Direct Bilirubin 0.3 (0.0-0.5) mg/dL AST 23 (5-37) U/L ALT 21 (0-40) U/L Alkaline Phosphatase 84 (39-117) U/L Total Protein 7.2 (6.5-8.0) g/dL Albumin 4.7 (3.5-5.0) g/dL Lipase 7 L (8-78) U/L Urine Color Yellow Urine Appearance Clear Urine pH 7.0 (5.0-9.0) Ur Specific [place] 1.025 (1.005-1.025) Urine Protein Trace (Neg-Trace) mg/dL Urine Glucose (UA) Negative (Negative) mg/dL Urine Ketones 40 (Negative) mg/dL Urine Blood Negative (Negative) Urine Nitrite Negative (Negative) Ur Leukocyte Esterase Negative (Negative) Urine Opiates Screen (Not Detect) Urine Fentanyl Screen (Not Detect) Ur Barbiturates Screen (Not Detect) Ur Phencyclidine Scrn (Not Detect) Ur Amphetamines Screen (Not Detect) U Benzodiazepines Scrn (Not Detect) Urine Cocaine Screen (Not Detect) U Marijuana (THC) Screen (Not Detect) Ethyl Alcohol < 10 mg/dL 03/31/23 Range/Units 17:18 WBC (4.8-10.8) X10*3/uL RBC (4.60-5.80) X10*6/uL Hgb (14.0-18.0) g/dl Hct (42.0-52.0) % MCV (80.0-98.0) fL MCH (27.0-33.0) pg MCHC (31.0-36.0) g/dl RDW (11.0-16.0) % Plt Count (160-400) X10*3/uL MPV (9.4-12.4) fL Immature Gran % (Auto) (0.0-0.4) % Neut % (Auto) (45-73) % Lymph % (Auto) (20-40) % [place] % (Auto) (2-11) % Eos % (Auto) (0-4) % Baso % (Auto) (0-2) % Lymph # (Auto) (1.2-4.9) X10*3/uL [place] # (Auto) (0.1-1.2) X10*3/uL Eos # (Auto) (0.0-0.4) X10*3/uL Baso # (Auto) (0.0-0.2) X10*3/uL Abs Immat Gran (auto) (0.00-0.03) X10*3/uL Absolute Neuts (auto) (2.0-8.3) x10*3/uL Absolute Nucleated RBC (0.0-0.012) X10*3/uL Nucleated RBC % (auto) (0.0-0.2) /100WBC Sodium (135-145) mmol/L Potassium (3.3-5.1) mmol/L Chloride (96-108) mmol/L Carbon Dioxide (22-29) mmol/L Anion Gap (12-20) BUN (9-16) mg/dL Creatinine (0.5-1.4) mg/dL Estim Creat Clear Calc Estimated GFR Random Glucose (60-115) mg/dL Calcium (8.4-10.2) mg/dL Magnesium (1.6-2.6) mg/dL Total Bilirubin (0.0-1.0) mg/dL Direct Bilirubin (0.0-0.5) mg/dL AST (5-37) U/L ALT (0-40) U/L Alkaline Phosphatase (39-117) U/L Total Protein (6.5-8.0) g/dL Albumin (3.5-5.0) g/dL Lipase (8-78) U/L Urine Color Urine Appearance Urine pH (5.0-9.0) Ur Specific [place] (1.005-1.025) Urine Protein (Neg-Trace) mg/dL Urine Glucose (UA) (Negative) mg/dL Urine Ketones (Negative) mg/dL Urine Blood (Negative) Urine Nitrite (Negative) Ur Leukocyte Esterase (Negative) Urine Opiates Screen POSITIVE H (Not Detect) Urine Fentanyl Screen Not Detected (Not Detect) Ur Barbiturates Screen Not Detected (Not Detect) Ur Phencyclidine Scrn Not Detected (Not Detect) Ur Amphetamines Screen Not Detected (Not Detect) U Benzodiazepines Scrn Not Detected (Not Detect) Urine Cocaine Screen POSITIVE H (Not Detect) U Marijuana (THC) Screen POSITIVE H (Not Detect) Ethyl Alcohol mg/dL Independent Historian Clinical information obtained from an independent historian. History obtained from or confirmed by: EMS External Record Review External record reviewed: Office record, Outpatient record, Prior outpatient labs and Prior outpatient radiology Prescription Management I considered prescription management with: Pain Medication Chronic Conditions Patient?s care impacted by: Other (Polysubstance abuse) Medications Administered Discontinued Medications Generic Name Dose Route Start Last Admin Trade Name Freq PRN Reason Stop Dose Admin Diphenhydramine HCl 50 mg 03/31/23 11:27 03/31/23 11:42 Diphenhydramine Hcl 50 Mg/Ml Vial IVPUSH 03/31/23 11:28 50 mg ONCE ONE Administration Haloperidol Lactate 5 mg 03/31/23 15:40 03/31/23 15:52 Haloperidol Lactate 5 Mg/Ml Vial IM 03/31/23 15:41 5 mg ONCE ONE Administration Haloperidol Lactate 2.5 mg 03/31/23 17:31 03/31/23 17:37 Haloperidol Lactate 5 Mg/Ml Vial IVPUSH 03/31/23 17:32 2.5 mg ONCE ONE Administration Ketorolac Tromethamine 30 mg 03/31/23 11:27 03/31/23 11:42 Ketorolac Tromethamine 30 Mg/Ml Vial IVPUSH 03/31/23 11:28 30 mg ONCE ONE Administration Metoclopramide HCl 10 mg 03/31/23 11:27 03/31/23 11:42 Metoclopramide Hcl 10 Mg/2 Ml Vial IVPUSH 03/31/23 11:28 10 mg ONCE ONE Administration Morphine Sulfate 4 mg 03/31/23 13:10 03/31/23 13:15 Morphine Sulfate 4 Mg/Ml Cartridge IVPUSH 03/31/23 13:11 4 mg ONCE ONE Administration Protocol Critical Care Time Critical Care Time Critical Care Time: No Discharge Plan Discharge Clinical Impression: Nausea & vomiting Patient Disposition: Home, Self-Care Instructions: Acute Nausea and Vomiting (ED) Additional Instructions: You were evaluated in the emergency department today for nausea and vomiting which is most likely due to irritation of the lining of your stomach. Your symptoms improved with medication in the ED. You are being prescribed phenergan suppositories which you can use up to every six hours as needed for nausea. Avoid spicy or acidic foods. Please follow up with your primary care physician within two days. You also also being referred to gastroenterology for further evaluation of your symptoms. Return to the emergency department if you experience shortness of breath, worsening or uncontrolled abdominal pain, chest pain, light headedness, faiting, persistent nausea and vomiting, bloody vomit or stools, black, tarry stools, or any other concerning symptoms. Prescriptions: New promethazine 12.5 mg suppository 12.5 mg RI Q6H PRN (Reason: nausea and vomiting) Qty: 12 0RF Referrals: [facility] [Provider Group]
[2023-03-31 11:42] LABS: MANUAL DIFF FLAG NO
[2023-03-31] MEDS: Metoclopramide HCl 10 MG/2 ML VIAL IVPUSH (11:42)
[2023-03-31] MEDS: Ketorolac Tromethamine 30 MG/ML VIAL IVPUSH (11:42)
[2023-03-31] MEDS: diphenhydrAMINE HCL 50 MG/ML VIAL IVPUSH (11:42)
[2023-03-31 11:44] LABS: Basophils Percent Auto 0.4 % (0-2); Eosinophils Percent Auto 0.3 % (0-4); Hematocrit 42.4 % (42.0-52.0); Hemoglobin 13.6 g/dl (14.0-18.0); Imm Gran Abs Auto 0.03 X10*3/uL (0.00-0.03); Imm Gran Pct Auto 0.4 % (0.0-0.4); Lymphocytes Absolute Auto 1.7 X10*3/uL (1.2-4.9); Lymphocytes Percent Auto 24.2 % (20-40); Mean Corpuscular HGB Conc 32.1 g/dl (31.0-36.0); Mean Corpuscular Hemoglobin 26.1 pg (27.0-33.0); Mean Corpuscular Volume 81.4 fL (80.0-98.0); Monocytes Absolute Auto 0.7 X10*3/uL (0.1-1.2); Monocytes Percent Auto 9.5 % (2-11); Neutrophils Absolute Auto 4.6 x10*3/uL (2.0-8.3); Neutrophils Percent Auto 65.2 % (45-73); Platelet Count 270 X10*3/uL (160-400); Red Blood Count 5.21 X10*6/uL (4.60-5.80); Red Cell Distribution Width 13.3 % (11.0-16.0)
[2023-03-31 12:06] LABS: Alanine Aminotransferase 21 U/L (0-40); Albumin Level 4.7 g/dL (3.5-5.0); Alkaline Phosphatase 84 U/L (39-117); Anion Gap 18 (12-20); Aspartate Amino Transferase 23 U/L (5-37); Bilirubin Direct 0.3 mg/dL (0.0-0.5); Blood Urea Nitrogen 21 mg/dL (9-16); Calcium 10.5 mg/dL (8.4-10.2); Carbon Dioxide 22 mmol/L (22-29); Chloride 105 mmol/L (96-108); Creatinine Clr Calc Pharmacy 74.5; Estimated Glomerular Filt Rate > 60; Ethanol < 10 mg/dL; Glucose Random 83 mg/dL (60-115); Lipase 7 U/L (8-78); Magnesium 2.3 mg/dL (1.6-2.6); Sodium 141 mmol/L (135-145); Total Protein 7.2 g/dL (6.5-8.0)
[2023-03-31 13:15] VITALS: RESP 16
[2023-03-31] MEDS: Morphine Sulfate 4 MG/ML CARTRIDGE IVPUSH (13:15)
[2023-03-31 14:22] VITALS: BP 122/52; PULSE 60; RESP 16; TEMP 36.5; O2SAT 99
[2023-03-31] MEDS: Haloperidol Lactate 5 MG/ML VIAL IM (15:52)
[2023-03-31 17:00] VITALS: BP 140/86; PULSE 78; RESP 16; TEMP 37; O2SAT 98
[2023-03-31 17:37] LABS: Appearance Urine Clear; Color Urine Yellow; Glucose Urine UA Negative (Negative); Leukocyte Esterase Urine Negative (Negative); Nitrite Urine Negative (Negative); Specific Gravity - Urine 1.025 (1.005-1.025); Urine Blood Negative (Negative); Urine Ketones 40 mg/dL (Negative); Urine Protein Trace mg/dL (Neg-Trace)
[2023-03-31] MEDS: Haloperidol Lactate 5 MG/ML VIAL 2.5 MG IVPUSH (17:37)
[2023-03-31 17:47] LABS: Amphetamine Screen Urine Not Detected (Not Detect); Barbiturates, Urine Not Detected (Not Detect); Benzodiazepines Screen Urine Not Detected (Not Detect); Cannabinoid Screen Urine POSITIVE (Not Detect); Cocaine Screen Urine POSITIVE (Not Detect); Fentanyl, urine Not Detected (Not Detect); Opiate Screen Urine POSITIVE (Not Detect); Phencyclidine Screen Urine Not Detected (Not Detect)
== END 2023-03-31 18:08 | disposition home or self-care (01) ==
PROVIDERS: Physician Assistant; Emergency Provider Emergency Medicine
DX: R10.32 Left lower quadrant pain (principal); R11.2 Nausea with vomiting, unspecified; Z79.899 Other long term (current) drug therapy
CPT/HCPCS: 36415; 80048; 80076; 80307; 81003; 83690; 83735; 85025; 96372; 96374; 96375; 99285; J1200; J1885; J2270; J2765

== ENCOUNTER 2023-04-02 20:27 | Emergency (ER) | payer MEDICAID, SELFPAY ==
[2023-04-02 20:38] VITALS: BP 160/84; PULSE 110; O2SAT 100
[2023-04-02 20:39] VITALS: BP 136/83; PULSE 109; RESP 20; TEMP 36.9; O2SAT 100; BMI 22.3
--- NOTE | 2023-04-02 20:39 | ED.GENADULT ---
HPI - General Adult General Chief complaint: Nausea/Vomiting/Diarrhea Stated complaint: VOMITING Time Seen by Provider: 04/02/23 22:07 Source: patient Mode of arrival: EMS History of Present Illness HPI narrative: 32-year-old male with history cannabis and cocaine use presents to the ER via EMS for abdominal pain after multiple episodes nausea and vomiting without fever or chills. Patient states that he is detoxing from leading cocaine. He denies any fevers or chills Related Data Previous Rx's Medication Instructions Recorded promethazine 12.5 mg rectal 12.5 mg NV Q6H PRN nausea and 03/31/23 suppository vomiting #12 ea ondansetron 4 mg disintegrating 4 mg PO Q8H PRN nausea and 04/03/23 tablet vomiting #10 tabs sucralfate 100 mg/mL oral 10 ml PO BID #420 mL 04/03/23 suspension (Carafate) Allergies Allergy/AdvReac Type Severity Reaction Status Date / Time No Known Allergies Allergy Verified 04/02/23 20:38 [No Known Allergies*] Review of Systems Review of Systems: Pertinent positives and negatives as stated in HPI [facility] Past Medical History Source: nursing notes reviewed Medical History Abdominal pain Cannabinoid hyperemesis syndrome Cocaine abuse No known health problems Pneumomediastinum Pneumothorax Social History Social History Household Members: Family Housing: Apartment Do you presently have visiting nurse or other home services: No Alcohol intake: current Alcohol intake frequency: a few times a month Alcohol type: beer and wine Patient Tobacco Use Status: Tobacco use Unknown Second Hand Smoke Exposure: No Substance Use Type: Crack/Cocaine and Marijuana Advance Directives: No Advance Directives Information Provided: No Advance Directives Date on File: 03/22/21 service: No Current occupational status: unemployed Physical Exam ED Vital Signs: Vital Signs - 24 hr 04/02/23 20:39 04/02/23 21:30 04/02/23 23:54 Temperature 98.5 F Pulse Rate 109 H 66 71 Respiratory Rate 20 13 16 Blood Pressure 136/83 140/92 H 138/90 H Pulse Oximetry 100 90 L 99 Oxygen Delivery Method Room Air Room Air 04/03/23 01:54 Temperature Pulse Rate 16 L Respiratory Rate Blood Pressure Pulse Oximetry Oxygen Delivery Method BMI result Body Mass Index 22.3 VITAL SIGNS: Reviewed. GENERAL: Well developed, well nourished, in moderate distress. HEAD: Normocephalic/atraumatic EYES: PERRLA, EOMI EARS: Ext canals without abnormality NOSE: Nares patent bilateral OROPHARYNX: no oral lesions noted, posterior pharynx clear NECK: Supple, no adenopathy LUNGS: Normal breath sounds. No adventitious sounds or accessory muscle use. SpO2<99> CARDIOVASCULAR: Regular rate and rhythm without noted murmurs ABDOMEN: Soft, non-tender, non-distended with bowel sounds. MUSCULOSKELETAL: No tenderness, deformities, or effusions noted on gross inspection. EXTREMITIES: No cyanosis, clubbing or edema. SKIN: Inspection of the skin reveals no rashes NEUROLOGIC: Alert and oriented x 4. Strength and sensation to light touch were grossly intact x 4. Course Course Course Narrative: This is an RME: Additional HPI, ROS, PE not included below will be deferred to primary provider. This is a 32-year-old male, with a history of cannabinoid hyperemesis syndrome, cocaine abuse, history of JOSE, who presents to the emergency department for ongoing abdominal pain, nausea, and vomiting x 3 days. Patient was seen here on March 31 for the same symptoms was discharged promethazine. Did not follow-up with GI. Patient reports that he is currently withdrawing from cocaine and marijuana. VSS. Plan: Labs and UA ordered. Medications Administered Discontinued Medications Generic Name Dose Route Start Last Admin Trade Name Freq PRN Reason Stop Dose Admin Al Hydroxide/Mg Hydroxide 30 ml 04/03/23 00:02 04/03/23 00:23 Magnesium Hydrox/Alum Hydrox 30 Ml Oral.Susp PO 04/03/23 00:03 30 ml ONCE ONE Administration Diphenhydramine HCl 50 mg 04/02/23 22:27 04/02/23 22:53 Diphenhydramine Hcl 50 Mg/Ml Vial IVPUSH 04/02/23 22:28 50 mg ONCE ONE Administration Haloperidol Lactate 2.5 mg 04/03/23 01:23 04/03/23 01:33 Haloperidol Lactate 5 Mg/Ml Vial IM 04/03/23 01:24 2.5 mg ONCE ONE Administration Lidocaine HCl 10 ml 04/03/23 00:02 04/03/23 00:22 Lidocaine Hcl Viscous 2 % 15 Ml Solution MUCOUS MEM 04/03/23 00:03 10 ml ONCE ONE Administration Metoclopramide HCl 10 mg 04/02/23 22:27 04/02/23 22:52 Metoclopramide Hcl 10 Mg/2 Ml Vial IVPUSH 04/02/23 22:28 10 mg ONCE ONE Administration Ondansetron HCl 4 mg 04/02/23 22:27 04/02/23 22:52 Ondansetron Hcl 4 Mg/2 Ml Vial IVPUSH 04/02/23 22:28 4 mg ONCE ONE Administration Sucralfate 1 gm 04/03/23 00:02 04/03/23 00:23 Sucralfate Oral Suspension 1 Gm/10 Ml Oral.Susp PO 04/03/23 00:03 1 gm ONCE ONE Administration Medical Decision Making Medical Decision Making MDM Narrative: 32-year-old male with recurrent cyclical vomiting and associated gastritis symptoms. He received Zofran/Reglan/Benadryl which was then followed by a GI cocktail as well as Carafate suspension. He then subsequently needed 2.5 mg of Haldol IM. I reviewed all investigations and there is stress echo cytosis secondary to multiple episodes of nausea and vomiting, and toxicology consistent with prior presentations and patient's endorsement. Differential Diagnosis Please see the discussion above Lab Data Please see the discussion above 04/02/23 21:21 04/02/23 21:21 Labs: Lab Results 04/02/23 04/02/23 04/02/23 Range/Units 21:21 21:21 21:25 WBC 13.1 H (4.8-10.8) X10*3/uL RBC 5.55 (4.60-5.80) X10*6/uL Hgb 14.5 (14.0-18.0) g/dl Hct 44.7 (42.0-52.0) % MCV 80.5 (80.0-98.0) fL MCH 26.1 L (27.0-33.0) pg MCHC 32.4 (31.0-36.0) g/dl RDW 13.1 (11.0-16.0) % Plt Count 291 (160-400) X10*3/uL MPV 10.1 (9.4-12.4) fL Immature Gran % (Auto) 0.4 (0.0-0.4) % Neut % (Auto) 76.6 H (45-73) % Lymph % (Auto) 15.9 L (20-40) % [place] % (Auto) 6.7 (2-11) % Eos % (Auto) 0.2 (0-4) % Baso % (Auto) 0.2 (0-2) % Lymph # (Auto) 2.1 (1.2-4.9) X10*3/uL [place] # (Auto) 0.9 (0.1-1.2) X10*3/uL Eos # (Auto) 0.0 (0.0-0.4) X10*3/uL Baso # (Auto) 0.0 (0.0-0.2) X10*3/uL Abs Immat Gran (auto) 0.05 H (0.00-0.03) X10*3/uL Absolute Neuts (auto) 10.1 H (2.0-8.3) x10*3/uL Absolute Nucleated RBC 0.000 (0.0-0.012) X10*3/uL Nucleated RBC % (auto) 0.0 (0.0-0.2) /100WBC Sodium 140 (135-145) mmol/L Potassium 3.3 (3.3-5.1) mmol/L Chloride 100 (96-108) mmol/L Carbon Dioxide 27 (22-29) mmol/L Anion Gap 16 (12-20) BUN 30 H (9-16) mg/dL Creatinine 1.38 (0.5-1.4) mg/dL Estim Creat Clear Calc 67.2 Estimated GFR > 60 Random Glucose 125 H (60-115) mg/dL Calcium 10.1 (8.4-10.2) mg/dL Magnesium 2.0 (1.6-2.6) mg/dL Total Bilirubin 0.8 (0.0-1.0) mg/dL Direct Bilirubin 0.3 (0.0-0.5) mg/dL AST 22 (5-37) U/L ALT 20 (0-40) U/L Alkaline Phosphatase 84 (39-117) U/L Troponin I High Sens < 2.7 (<3.5-35.0) ng/L Total Protein 7.2 (6.5-8.0) g/dL Albumin 4.8 (3.5-5.0) g/dL Lipase 15 (8-78) U/L Urine Color Urine Appearance Urine pH (5.0-9.0) Ur Specific [place] (1.005-1.025) Urine Protein (Neg-Trace) mg/dL Urine Glucose (UA) (Negative) mg/dL Urine Ketones (Negative) mg/dL Urine Blood (Negative) Urine Nitrite (Negative) Ur Leukocyte Esterase (Negative) Urine RBC (0-2) /HPF Urine WBC (0-5) /HPF Ur Squamous Epith Cells (0-2) /HPF Urine Bacteria (None Seen) Hyaline Casts (0-2) /LPF Urine Opiates Screen (Not Detect) Urine Fentanyl Screen (Not Detect) Ur Barbiturates Screen (Not Detect) Ur Phencyclidine Scrn (Not Detect) Ur Amphetamines Screen (Not Detect) U Benzodiazepines Scrn (Not Detect) Urine Cocaine Screen (Not Detect) U Marijuana (THC) Screen (Not Detect) Ethyl Alcohol < 10 mg/dL 04/02/23 04/02/23 Range/Units 22:05 22:05 WBC (4.8-10.8) X10*3/uL RBC (4.60-5.80) X10*6/uL Hgb (14.0-18.0) g/dl Hct (42.0-52.0) % MCV (80.0-98.0) fL MCH (27.0-33.0) pg MCHC (31.0-36.0) g/dl RDW (11.0-16.0) % Plt Count (160-400) X10*3/uL MPV (9.4-12.4) fL Immature Gran % (Auto) (0.0-0.4) % Neut % (Auto) (45-73) % Lymph % (Auto) (20-40) % [place] % (Auto) (2-11) % Eos % (Auto) (0-4) % Baso % (Auto) (0-2) % Lymph # (Auto) (1.2-4.9) X10*3/uL [place] # (Auto) (0.1-1.2) X10*3/uL Eos # (Auto) (0.0-0.4) X10*3/uL Baso # (Auto) (0.0-0.2) X10*3/uL Abs Immat Gran (auto) (0.00-0.03) X10*3/uL Absolute Neuts (auto) (2.0-8.3) x10*3/uL Absolute Nucleated RBC (0.0-0.012) X10*3/uL Nucleated RBC % (auto) (0.0-0.2) /100WBC Sodium (135-145) mmol/L Potassium (3.3-5.1) mmol/L Chloride (96-108) mmol/L Carbon Dioxide (22-29) mmol/L Anion Gap (12-20) BUN (9-16) mg/dL Creatinine (0.5-1.4) mg/dL Estim Creat Clear Calc Estimated GFR Random Glucose (60-115) mg/dL Calcium (8.4-10.2) mg/dL Magnesium (1.6-2.6) mg/dL Total Bilirubin (0.0-1.0) mg/dL Direct Bilirubin (0.0-0.5) mg/dL AST (5-37) U/L ALT (0-40) U/L Alkaline Phosphatase (39-117) U/L Troponin I High Sens (<3.5-35.0) ng/L Total Protein (6.5-8.0) g/dL Albumin (3.5-5.0) g/dL Lipase (8-78) U/L Urine Color Yellow Urine Appearance Clear Urine pH >= 9.0 (5.0-9.0) Ur Specific [place] 1.025 (1.005-1.025) Urine Protein 30 (1+) H (Neg-Trace) mg/dL Urine Glucose (UA) Negative (Negative) mg/dL Urine Ketones 15 (Negative) mg/dL Urine Blood Negative (Negative) Urine Nitrite Negative (Negative) Ur Leukocyte Esterase Negative (Negative) Urine RBC 0-2 (0-2) /HPF Urine WBC 0-5 (0-5) /HPF Ur Squamous Epith Cells 0-2 (0-2) /HPF Urine Bacteria None Seen (None Seen) Hyaline Casts 0-2 (0-2) /LPF Urine Opiates Screen POSITIVE H (Not Detect) Urine Fentanyl Screen Not Detected (Not Detect) Ur Barbiturates Screen Not Detected (Not Detect) Ur Phencyclidine Scrn Not Detected (Not Detect) Ur Amphetamines Screen Not Detected (Not Detect) U Benzodiazepines Scrn Not Detected (Not Detect) Urine Cocaine Screen POSITIVE H (Not Detect) U Marijuana (THC) Screen POSITIVE H (Not Detect) Ethyl Alcohol mg/dL Discharge Plan Discharge Clinical Impression: Cyclical vomiting, Cocaine abuse, Cannabis abuse Patient Disposition: Home, Self-Care Instructions: Gastritis (ED), Diet for Stomach Ulcers and Gastritis (ED), Polysubstance Abuse (ED), Cyclic Vomiting Syndrome (ED) Additional Instructions: 1. Please consider reducing the amount of marijuana and cocaine that you use. 2. You have been given outpatient information for detox possibilities. 3. You have been given a prescription for a medication that should help soothe your stomach or the next 2-3 days after your episodes of vomiting. 4. Follow-up with your primary care provider. Return to the ER for any worsening symptoms. Prescriptions: New sucralfate [Carafate] 100 mg/mL suspension 10 ml PO BID Qty: 420 0RF ondansetron 4 mg tablet,disintegrating 4 mg PO Q8H PRN (Reason: nausea and vomiting) Qty: 10 0RF No Action promethazine 12.5 mg suppository 12.5 mg NV Q6H PRN (Reason: nausea and vomiting) Qty: 12 0RF Referrals: [facility] [Primary Care Provider] -
--- NOTE | 2023-04-02 21:09 | ECG_ITS ---
Test Reason : DYSPNEA Blood Pressure : / mmHG Vent. Rate : 089 BPM Atrial Rate : 089 BPM P-R Int : 122 ms QRS Dur : 096 ms QT Int : 364 ms P-R-T Axes : 074 070 -09 degrees QTc Int : 442 ms Normal sinus rhythm T wave abnormality, consider inferior ischemia Abnormal ECG When compared with ECG of 23-MAR-2021 02:21, T wave inversion no longer evident in Anterior leads Referred By: Generic ED Physician Electronically Signed By:ANA SHARP MD
--- NOTE | 2023-04-02 21:10 | PC.NURSE ---
pt was sitting in a wheelchair in the waiting room and then was found infront of the wheelchair pt detoxing. pt brought into room 20.
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
--- OUTSIDE RECORDS SUMMARY | 2023-04-02 21:10 | XMS_ITS | Continuity of Care Document ---
Author Name Unknown Organization [facility] ter Address [address] [place] [id number]- Care Team Providers Care Plaster Foreman Name Role Phone Not on Staff, PCP Primary Care Physician Unavail able Encounter [facility] Date(s): 06/10/22 - 06/11/[address] [address]- Encounter Diagnosis Nausea(Final) - 06/10/22 Vomiting(Final) - 06/10/22 Abdominal pain(Final) - 06/10/22 Suicide attempt(Final) - 06/10/22 Laceration of arm(Final) - 06/10/22 Discharge Disposition: A-D/C [place] Attending Physician: Helen Cristina MD Admitting Physician: Luis SULLIVAN, Thomas Chacon Referring Physician: Not on Staff, Referring MD Allergies, Adverse Reactions, Alerts No Known Allergies Immunizations Given and Recorded Vaccine Date Status Refusal Reason tetanus/diphtheria/pertussis, acel(Tdap) 06/10/22 Given Medications multivitamin Multiple Vitamins oral tablet 1 tablet, By Mouth, Daily, # 30 tablet, 0 Refills, Maintenance, 06/11/22 10:44:00 EDT, Tablet, [id number], Partial fill upon patient request if the prescription is for a schedule II opioid drug., 1 tablet By Mouth Daily,x30 days, 165, cm, 0... Start Date: 06/11/22 Stop Date: 07/11/22 Status: Ordered omeprazole 20 mg oral delayed release tablet 1 tablet = 20 mg, By Mouth, Daily, # 14 tablet, 0 Refills, Maintenance, 06/11/22 10:52:00 EDT, CR Tablet, [id number], Partial fill upon patient request if the prescription is for a schedule II opioid drug., 165, cm, 06/11/22 7:47:00 EDT, Ranjeet... Start Date: 06/11/22 Stop Date: 06/25/22 Status: Ordered Zofran 4 mg oral tablet 1 tablet = 4 mg, By Mouth, 3 times a day, PRN Nausea, # 9 tablet, 5 Refills, Acute 06/18/22 12:00:00 EDT, 06/11/22 10:43:00 EDT, [id number], Partial fill upon patient request if the prescription is for a schedule II opioid drug., 165, cm, 080... Start Date: 06/11/22 Stop Date: 06/18/22 Status: Ordered Problem List Condition Effective Dates Status Health Status Inform ant Obese class I(Confirmed) Active Vital Signs Most recent to oldest [Reference Range]: 1 2 3 Height 165 cm (06/11/22 11:01 AM) 165 cm (06/11/22 7:47 AM) 165 cm (06/11/22 5:06 AM) Weight 83.7 kg (06/10/22 11:08 AM) Oxygen Saturation [94-100 %] 98 % (06/11/22 11:01 AM) 100 % (06/11/22 7:47 AM) 98 % (06/11/22 5:06 AM) Pulse Rate [55-90 bpm] 65 bpm (06/11/22 11:01 AM) 75 bpm (06/11/22 7:47 AM) 85 bpm (06/11/22 5:06 AM) Body Mass Index [18.5-24.99] 30.74 *>HHI* (06/10/22 11:08 AM) Blood Pressure [90-138/55-84 mm Hg] 121/52mm Hg (06/11/22 11:01 AM) 127/72mm Hg (06/11/22 7:47 AM) 138/78mm Hg (06/11/22 5:06 AM) Respiratory Rate [16-30 br/min] 19 br/min (06/11/22 11:01 AM) 18 br/min (06/11/22 8:03 AM) 17 br/min (06/11/22 7:47 AM) Temperature [96.8-100.4 DegF] 98.1 DegF (06/11/22 11:01 AM) 98.8 DegF (06/11/22 7:47 AM) 98.6 DegF (06/11/22 5:06 AM) Mode of Delivery (Oxygen) Room air (06/11/22 11:01 AM) Room air (06/11/22 7:47 AM) Room air (06/11/22 5:06 AM) Blood pressure sites Arm, left (06/11/22 11:01 AM) Arm, left (06/11/22 7:47 AM) Arm, right (06/11/22 5:06 AM) Temperature Route Oral (06/11/22 11:01 AM) Oral (06/11/22 7:47 AM) Oral (06/11/22 5:06 AM) Dry Weight 83.7 kg (06/10/22 11:08 AM)
[2023-04-02 21:29] LABS: MANUAL DIFF FLAG NO
[2023-04-02 21:30] VITALS: BP 140/92; PULSE 66; RESP 13; O2SAT 90
[2023-04-02 21:33] LABS: Basophils Percent Auto 0.2 % (0-2); Eosinophils Percent Auto 0.2 % (0-4); Hematocrit 44.7 % (42.0-52.0); Hemoglobin 14.5 g/dl (14.0-18.0); Imm Gran Abs Auto 0.05 X10*3/uL (0.00-0.03); Imm Gran Pct Auto 0.4 % (0.0-0.4); Lymphocytes Absolute Auto 2.1 X10*3/uL (1.2-4.9); Lymphocytes Percent Auto 15.9 % (20-40); Mean Corpuscular HGB Conc 32.4 g/dl (31.0-36.0); Mean Corpuscular Hemoglobin 26.1 pg (27.0-33.0); Mean Corpuscular Volume 80.5 fL (80.0-98.0); Mean Platelet Volume 10.1 fL (9.4-12.4); Monocytes Absolute Auto 0.9 X10*3/uL (0.1-1.2); Monocytes Percent Auto 6.7 % (2-11); Neutrophils Absolute Auto 10.1 x10*3/uL (2.0-8.3); Neutrophils Percent Auto 76.6 % (45-73); Platelet Count 291 X10*3/uL (160-400); Red Blood Count 5.55 X10*6/uL (4.60-5.80); Red Cell Distribution Width 13.1 % (11.0-16.0); White Blood Count 13.1 X10*3/uL (4.8-10.8)
--- NOTE | 2023-04-02 21:33 | MHC.EDTECH ---
This Tech assumed care of this Pt Upon arrival. Pt passed out in ER waiting room and rushed back into Room 20. EKg performed and handed to provider. Pt placed on gravure press operator and vital signs completed. Pt has an elevated Bp low o2 Level hovering between 88-90. RN made aware. Pt changed over to hospital gown
[2023-04-02 21:51] LABS: Alanine Aminotransferase 20 U/L (0-40); Albumin Level 4.8 g/dL (3.5-5.0); Alkaline Phosphatase 84 U/L (39-117); Anion Gap 16 (12-20); Aspartate Amino Transferase 22 U/L (5-37); Bilirubin Direct 0.3 mg/dL (0.0-0.5); Bilirubin Total 0.8 mg/dL (0.0-1.0); Blood Urea Nitrogen 30 mg/dL (9-16); Calcium 10.1 mg/dL (8.4-10.2); Carbon Dioxide 27 mmol/L (22-29); Chloride 100 mmol/L (96-108); Creatinine Clr Calc Pharmacy 67.2; Estimated Glomerular Filt Rate > 60; Ethanol < 10 mg/dL; Glucose Random 125 mg/dL (60-115); Lipase 15 U/L (8-78); Potassium 3.3 mmol/L (3.3-5.1); Sodium 140 mmol/L (135-145); Total Protein 7.2 g/dL (6.5-8.0)
[2023-04-02 22:00] VITALS: BP 129/78; PULSE 88; RESP 18; TEMP 36.9; O2SAT 100
[2023-04-02 22:01] LABS: Troponin-I High Sensitivity < 2.7 ng/L (<3.5-35.0)
[2023-04-02 22:15] LABS: Appearance Urine Clear; Color Urine Yellow; Glucose Urine UA Negative (Negative); Leukocyte Esterase Urine Negative (Negative); Nitrite Urine Negative (Negative); PH >= 9.0 (5.0-9.0); Specific Gravity - Urine 1.025 (1.005-1.025); UMIC TRIGGER UACC YES; Urine Blood Negative (Negative); Urine Ketones 15 mg/dL (Negative); Urine Protein 30 (1+) mg/dL (Neg-Trace)
[2023-04-02 22:18] LABS: Bacteria Urine None Seen (None Seen); Hyaline Casts Urine 0-2 /LPF (0-2); RBC Urine 0-2 /HPF (0-2); Squamous Epithelial Cell Urine 0-2 /HPF (0-2); WBC Urine 0-5 /HPF (0-5)
[2023-04-02 22:25] LABS: Amphetamine Screen Urine Not Detected (Not Detect); Barbiturates, Urine Not Detected (Not Detect); Benzodiazepines Screen Urine Not Detected (Not Detect); Cannabinoid Screen Urine POSITIVE (Not Detect); Cocaine Screen Urine POSITIVE (Not Detect); Fentanyl, urine Not Detected (Not Detect); Opiate Screen Urine POSITIVE (Not Detect); Phencyclidine Screen Urine Not Detected (Not Detect)
[2023-04-02] MEDS: Metoclopramide HCl 10 MG/2 ML VIAL IVPUSH (22:52)
[2023-04-02] MEDS: ondansetron HCL 4 MG/2 ML VIAL IVPUSH (22:52)
[2023-04-02] MEDS: diphenhydrAMINE HCL 50 MG/ML VIAL IVPUSH (22:53)
--- NOTE | 2023-04-02 23:00 | PC.NURSE ---
pt throughout the night has been stating that all the medications that were given has not helped with his N/V. MD made aware of pts thoughts of the medication regimen. Please see [place] section for all medications given.
--- NOTE | 2023-04-02 23:00 | PC.NURSE ---
Pt continues to want something for his N/V stating that the medication we have given him so far has not helped. MD made aware of pts request. Pt is also coming to the nurses station every 15 mins to inform the staff he wants something for the N/v. See [place] for further information of medications given.
--- NOTE | 2023-04-02 23:50 | PC.NURSE ---
pt wants pain meds for his N/v. Pt has informed MD is with another Pt and she will be right with him. Pt stated I need the MD now. Pt began hitting his head on the table to get the MDs attention. MD made aware of pts hitting his head on the table to get MDs attention. Pt states that he feels the MD needs to be on top of his N/V situation and that he is going to if she does not come to see him . MD aware of pts needs and request.
[2023-04-02 23:54] VITALS: BP 138/90; PULSE 71; RESP 16; O2SAT 99
[2023-04-03] MEDS: Lidocaine HCl Viscous 2 % 15 ML SOLUTION 10 ML MUCOUS MEM (00:22)
[2023-04-03] MEDS: Sucralfate Oral Suspension 1 GM/10 ML ORAL.SUSP PO (00:23)
[2023-04-03] MEDS: Magnesium Hydrox/Alum Hydrox 30 ML ORAL.SUSP PO (00:23)
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
--- NOTE | 2023-04-03 01:15 | PC.NURSE ---
pt has developed a hematoma in the center of his forehead but no open skin. V/s as following: BP129/78, HR 89, RR 18, So2 98% RA, temp 98.5 made aware.
[2023-04-03] MEDS: Haloperidol Lactate 5 MG/ML VIAL 2.5 MG IM (01:33)
[2023-04-03 01:54] VITALS: PULSE 16
--- NOTE | 2023-04-03 03:37 | PC.NURSE ---
Pt is refusing to be Discharged because he claims he has no ride home or keys to go into his house nor a phone to call anyone. Charge nurse made aware of pts refusal.
== END 2023-04-03 04:02 | disposition home or self-care (01) ==
PROVIDERS: Physician Assistant Medical; Emergency Provider Student in an Organized Health Care Education/Training Program
DX: R11.15 Cyclical vomiting syndrome unrelated to migraine (principal); F14.10 Cocaine abuse, uncomplicated; F12.10 Cannabis abuse, uncomplicated
CPT/HCPCS: 36415; 80048; 80076; 80307; 81001; 83690; 83735; 84484; 85025; 93005; 96372; 96374; 96375; 99285; J1200; J2405; J2765

== ENCOUNTER 2023-04-03 13:39 | Emergency (ER) | payer OTHER, MEDICAID, SELFPAY ==
--- NOTE | ~2023-04-03 | CT_ITS ---
EXAMINATION: CT ABDOMEN AND PELVIS WITH CONTRAST CLINICAL INFORMATION: Left lower quadrant pain and vomiting. COMPARISON: CT scans of the abdomen and pelvis dated 03/22/2021 and 11/02/2020. TECHNIQUE: Multidetector volumetric images were obtained from the superior aspect of the liver through the pubic symphysis following administration 85 mL of Omnipaque 350 intravenous contrast. Sagittal and coronal reformatted images were obtained on the technologist's workstation. There is limitation to the study secondary to lack of intraperitoneal fat. Oral contrast: No This CT examination was performed using dose optimization techniques as appropriate, variously including the following: *Automated exposure control *Adjustment of mA and/or kV according to patient size (this includes techniques or standardized protocols for targeted exams where dose is matched to indication/reason for exam; i.e. extremities or head) *Use of iterative reconstruction technique DLP: 351 mGy-cm FINDINGS: LUNG BASES: The visualized lung bases are unremarkable. LIVER, GALLBLADDER, AND BILIARY TREE: Unremarkable. PANCREAS: Unremarkable. SPLEEN: Unremarkable. ADRENAL GLANDS: Unremarkable. KIDNEYS AND URETERS: The kidneys are normal in size, shape, and attenuation. No hydronephrosis, hydroureter, or calculi seen. No perinephric stranding. BLADDER: Unremarkable. GASTROINTESTINAL TRACT: The stomach, small bowel and appendix are unremarkable. The colon and rectum are unremarkable. PERITONEUM: A simple fluid collection is again seen medially in the left upper quadrant measuring approximately 8.1 x 7.3 x 2.8 cm (previously approximately 7.0 x 5.1 x 1.5 cm), image 38, series 7; image 21, series 3. ABDOMINAL WALL: No significant hernia is appreciated. LYMPH NODES: No lymphadenopathy. VASCULAR: Unremarkable. PELVIC VISCERA: Unremarkable. OSSEOUS STRUCTURES: Unremarkable. CT/CT abdomen pelvis w IV con IMPRESSION: 1. Limited study without definitive acute intra-abdominal/pelvic abnormality. 2. Simple fluid collection the left upper quadrant has mildly increased in size, but remains nonspecific and maintains benign features. Given the patient's symptoms and limitations of the study, considerations for imaging follow-up include contrast-enhanced abdominal and pelvic MRI.
[2023-04-03 13:45] VITALS: BP 132/92; BP 143/77; PULSE 101; PULSE 110; RESP 16; TEMP 37.3; O2SAT 100; O2SAT 99; BMI 22.6
--- NOTE | 2023-04-03 14:05 | ED.PSYCH ---
HPI - Psych General Chief Complaint: Psychiatric Symptoms Stated Complaint: SI W/PLAN PER EMS Time Seen by Provider: 04/03/23 14:05 Source: patient and EMS Mode of arrival: EMS Limitations: no limitations History of Present Illness HPI Narrative: 32 yo male with history of polysubstance abuse, cannabinoid hyperemesis syndrome, cocaine abuse, history of JOSE, who was seen here twice this week for abdominal pain, nausea and vomiting who presents to the ER for evaluation of suicidal thoughts and self-harm behavior. He was seen here in the ER twice this week for abdominal pain, nausea, vomiting. He was discharged both times after being treated with IV fluids and medications for cyclical vomiting syndrome. He states each time after he was discharged he was not better. He states the abdominal pain and vomiting have gotten so bad to the point he wants to kill himself. He was planning on cutting his wrist but he was unable to go deep enough today. He cut a superficial laceration to his right forearm just prior to arrival. He denies any suicidal attempts in the past. He states he last used drugs 5 days ago. MD complaint: suicidal ideation and feels depressed Onset (ago): day(s) Duration: getting worse History of same: No Relieving factors: none Exacerbating factors: drug use Context: recent drug abuse Associated psychiatric symptoms: depression and suicidal ideation Associated symptoms: nausea, vomiting and other (Severe abdominal pain) If self harm: admits thoughts of self harm, has plan, has acted on plan and self-inflicted trauma Details of plan: Self-harm and cutting Related Data Previous Rx's Medication Instructions Recorded promethazine 12.5 mg rectal 12.5 mg IA Q6H PRN nausea and 03/31/23 suppository vomiting #12 ea ondansetron 4 mg disintegrating 4 mg PO Q8H PRN nausea and 04/03/23 tablet vomiting #10 tabs sucralfate 100 mg/mL oral 10 ml PO BID #420 mL 04/03/23 suspension (Carafate) Allergies Allergy/AdvReac Type Severity Reaction Status Date / Time No Known Allergies Allergy Verified 04/02/23 20:38 [No Known Allergies*] Review of Systems Review of Systems: Yes all other systems are reviewed and are negative PMFSH Past Medical History Medical History Abdominal pain Cannabinoid hyperemesis syndrome Cocaine abuse No known health problems Pneumomediastinum Pneumothorax Social History Social History Household Members: Family Housing: Apartment Do you presently have visiting nurse or other home services: No Alcohol intake: current Alcohol intake frequency: holidays/special occasions only Alcohol type: beer and wine Patient Tobacco Use Status: Tobacco use Unknown Second Hand Smoke Exposure: No Substance Use Type: Crack/Cocaine Advance Directives: No Advance Directives Information Provided: No Advance Directives Date on File: 03/22/21 service: No Current occupational status: unemployed Physical Exam Vital Signs: Vital Signs: Last Vital Signs Temp 99.1 F 04/03/23 13:45 Pulse 110 H 04/03/23 13:45 Resp 16 04/03/23 13:45 BP 143/77 H 04/03/23 13:45 Pulse Ox 100 04/03/23 13:45 O2 Del Method Room Air 04/03/23 13:45 BMI result Body Mass Index 22.6 Appearance: Young male lying on his side in the bed, curled in a ball, appears ill Head: normocephalic, atraumatic. Eyes: Pupils equal, round and reactive to light. ENT: Pharynx normal. No tonsillar swelling or exudate. Neck: Normal inspection. Neck supple. CVS: Tachycardic, heart rate 100 Pulses normal. Respiratory: No respiratory distress. Breath sounds normal. Abdomen: Thin, soft with guarding and tenderness of left lower quadrant. No rebound. Normal active +BS x4 Skin: Skin warm and dry. Normal skin color. Normal skin turgor. No rashes. Extremities: No lower extremity edema. No joint swelling. Superficial linear laceration to the right forearm, no active bleeding, deep structures intact Neuro/psych: Oriented X 3. No motor deficit. No sensory deficit. CN II-XII intact. Normal speech and cognition. Course Reevaluation(s) Reevaluation #1: Patient actively vomiting in the Behavioral pot. He has abdominal tenderness and guarding on examination. He does not recall his last bowel movement. This is his 3rd ER visit this week for abdominal pain, nausea, vomiting. He has not had abdominal imaging yet. Will get CT scan of the abdomen for further evaluation of his abdominal pain and to ensure there was no missed diagnoses. Patient to be brought out to the main ER for IV fluids and treatment. Time: 15:41 Medications Administered Generic Name Dose Route Start Last Admin Trade Name Efren PRN Reason Stop Dose Admin Sodium Chloride 1,000 mls @ 999 mls/hr 04/03/23 15:45 04/03/23 15:53 Ns IVCONT 04/03/23 16:45 999 mls/hr .Q1H1M VINAYAK Administration Discontinued Medications Generic Name Dose Route Start Last Admin Trade Name Efren PRN Reason Stop Dose Admin Ketorolac Tromethamine 30 mg 04/03/23 14:40 04/03/23 14:51 Ketorolac Tromethamine 30 Mg/Ml Vial IM 04/03/23 14:41 30 mg ONCE ONE Administration Ondansetron HCl 4 mg 04/03/23 14:26 04/03/23 14:34 Ondansetron Odt 4 Mg Tab.Rapdis TRANSLINGU 04/03/23 14:27 4 mg ONCE STA Administration Medical Decision Making Medical Decision Making [facility] Narrative: 32-year-old male with history of polysubstance abuse and cyclical vomiting syndrome presents to the ER for evaluation of ongoing abdominal pain, nausea, vomiting for the last several days along with new onset suicidal ideation with plan to cut his wrist and his life. He reports his suicidal ideation is directly related to his abdominal pain and ongoing symptoms. CT scan of the abdomen and pelvis is pending along with lab workup. His U tox the last 2 visits were positive for opiates, cocaine, marijuana. Patient brought out to the main ER, IV fluids were ordered. CT scan being done now. Signed out to Sam SANCHEZ who will follow-up CT scan and determine disposition. Differential Diagnosis Differential Diagnoses: The differential diagnosis associated with the presentation includes Cyclical vomiting syndrome, acute diverticulitis, small-bowel obstruction, colitis, gastroenteritis Admission/Observation Consideration of admission/observation: Escalation of care including admission/observation considered 3rd visit for the same presentation requiring IV medications and fluids for persistent pain and vomiting Lab Data [facility] Lab Attestation statement: I reviewed the patient's lab results. 04/03/23 15:29 04/03/23 15:29 Labs: Lab Results 04/03/23 04/03/23 04/03/23 Range/Units 15:29 15:29 15:29 WBC 8.3 (4.8-10.8) X10*3/uL RBC 5.14 (4.60-5.80) X10*6/uL Hgb 13.6 L (14.0-18.0) g/dl Hct 42.2 (42.0-52.0) % MCV 82.1 (80.0-98.0) fL MCH 26.5 L (27.0-33.0) pg MCHC 32.2 (31.0-36.0) g/dl RDW 13.1 (11.0-16.0) % Plt Count 243 (160-400) X10*3/uL MPV 10.3 (9.4-12.4) fL Immature Gran % (Auto) 0.2 (0.0-0.4) % Neut % (Auto) 73.1 H (45-73) % Lymph % (Auto) 18.2 L (20-40) % Sebastian % (Auto) 8.3 (2-11) % Eos % (Auto) 0.0 (0-4) % Baso % (Auto) 0.2 (0-2) % Lymph # (Auto) 1.5 (1.2-4.9) X10*3/uL Sebastian # (Auto) 0.7 (0.1-1.2) X10*3/uL Eos # (Auto) 0.0 (0.0-0.4) X10*3/uL Baso # (Auto) 0.0 (0.0-0.2) X10*3/uL Abs Immat Gran (auto) 0.02 (0.00-0.03) X10*3/uL Absolute Neuts (auto) 6.1 (2.0-8.3) x10*3/uL Absolute Nucleated RBC 0.000 (0.0-0.012) X10*3/uL Nucleated RBC % (auto) 0.0 (0.0-0.2) /100WBC Sodium 138 (135-145) mmol/L Potassium 4.2 D (3.3-5.1) mmol/L Chloride 101 (96-108) mmol/L Carbon Dioxide 29 (22-29) mmol/L Anion Gap 12 (12-20) BUN 19 H (9-16) mg/dL Creatinine 1.26 (0.5-1.4) mg/dL Estim Creat Clear Calc 76.9 Estimated GFR > 60 Random Glucose 95 (60-115) mg/dL Calcium 9.8 (8.4-10.2) mg/dL Total Bilirubin 1.0 (0.0-1.0) mg/dL AST 25 (5-37) U/L ALT 18 (0-40) U/L Alkaline Phosphatase 81 (39-117) U/L Total Protein 6.8 (6.5-8.0) g/dL Albumin 4.5 (3.5-5.0) g/dL Ethyl Alcohol < 10 mg/dL COVID-19 (JERRY) Negative (Negative) COVID-19 Clin Com See Note Independent Historian Clinical information obtained from an independent historian. History obtained from or confirmed by: EMS External Record Review External record reviewed: Outpatient record, Prior outpatient labs and Prior outpatient radiology Prescription Management I considered prescription management with: Pain Medication Chronic Conditions Patient?s care impacted by: Other (Polysubstance abuse) Critical Care Time Critical Care Time Critical Care Time: No Discharge Plan Discharge Clinical Impression: Nausea & vomiting Patient Disposition: Still a Patient Prescriptions: No Action promethazine 12.5 mg suppository 12.5 mg IA Q6H PRN (Reason: nausea and vomiting) Qty: 12 0RF sucralfate [Carafate] 100 mg/mL suspension 10 ml PO BID Qty: 420 0RF ondansetron 4 mg tablet,disintegrating 4 mg PO Q8H PRN (Reason: nausea and vomiting) Qty: 10 0RF Interventions: [place]-Suicide Risk Severity Scale Last Done: 04/03/23 14:25
--- NOTE | 2023-04-03 14:22 | PC.NURSE ---
Pt in c/o SI after being discharged home earlier. Pt reports stomach pain and vomiting. He claims he has recently used Cocaine, smokes nicotine and marijuana. notified.
[2023-04-03] MEDS: Ondansetron ODT 4 MG TAB.RAPDIS TRANSLINGU (14:34)
[2023-04-03] MEDS: Ketorolac Tromethamine 30 MG/ML VIAL IM (14:51)
[2023-04-03 15:35] LABS: MANUAL DIFF FLAG NO
[2023-04-03 15:37] LABS: Basophils Percent Auto 0.2 % (0-2); Hematocrit 42.2 % (42.0-52.0); Hemoglobin 13.6 g/dl (14.0-18.0); Imm Gran Abs Auto 0.02 X10*3/uL (0.00-0.03); Imm Gran Pct Auto 0.2 % (0.0-0.4); Lymphocytes Absolute Auto 1.5 X10*3/uL (1.2-4.9); Lymphocytes Percent Auto 18.2 % (20-40); Mean Corpuscular HGB Conc 32.2 g/dl (31.0-36.0); Mean Corpuscular Hemoglobin 26.5 pg (27.0-33.0); Mean Corpuscular Volume 82.1 fL (80.0-98.0); Mean Platelet Volume 10.3 fL (9.4-12.4); Monocytes Absolute Auto 0.7 X10*3/uL (0.1-1.2); Monocytes Percent Auto 8.3 % (2-11); Neutrophils Absolute Auto 6.1 x10*3/uL (2.0-8.3); Neutrophils Percent Auto 73.1 % (45-73); Platelet Count 243 X10*3/uL (160-400); Red Blood Count 5.14 X10*6/uL (4.60-5.80); Red Cell Distribution Width 13.1 % (11.0-16.0); White Blood Count 8.3 X10*3/uL (4.8-10.8)
[2023-04-03] MEDS: 0.9 % Sodium Chloride 1,000 ML 999 ML IVCONT (15:53)
[2023-04-03 15:54] LABS: COVID-19 Test Negative (Negative); IDNOW Serial# 08D9AD1C
[2023-04-03 16:08] LABS: Alanine Aminotransferase 18 U/L (0-40); Albumin Level 4.5 g/dL (3.5-5.0); Alkaline Phosphatase 81 U/L (39-117); Anion Gap 12 (12-20); Aspartate Amino Transferase 25 U/L (5-37); Blood Urea Nitrogen 19 mg/dL (9-16); Calcium 9.8 mg/dL (8.4-10.2); Carbon Dioxide 29 mmol/L (22-29); Chloride 101 mmol/L (96-108); Creatinine Clr Calc Pharmacy 76.9; Estimated Glomerular Filt Rate > 60; Ethanol < 10 mg/dL; Glucose Random 95 mg/dL (60-115); Potassium 4.2 mmol/L (3.3-5.1); Sodium 138 mmol/L (135-145); Total Protein 6.8 g/dL (6.5-8.0)
[2023-04-03] MEDS: iohexoL 350 MG/ML 100 ML INFUS..BTL IV (16:26)
[2023-04-03] MEDS: Haloperidol Lactate 5 MG/ML VIAL 2.5 MG IM (17:23)
[2023-04-03 17:40] LABS: Appearance Urine Clear; Color Urine Yellow; Glucose Urine UA Negative (Negative); Leukocyte Esterase Urine Negative (Negative); Nitrite Urine Negative (Negative); Specific Gravity - Urine >= 1.030 (1.005-1.025); UMIC TRIGGER UACC YES; Urine Blood Negative (Negative); Urine Ketones Trace mg/dL (Negative); Urine Protein 30 (1+) mg/dL (Neg-Trace)
[2023-04-03 17:42] LABS: Bacteria Urine None Seen (None Seen); Hyaline Casts Urine 0-2 /LPF (0-2); RBC Urine 0-2 /HPF (0-2); Squamous Epithelial Cell Urine 0-2 /HPF (0-2); WBC Urine 0-5 /HPF (0-5)
[2023-04-03 17:50] LABS: Amphetamine Screen Urine Not Detected (Not Detect); Barbiturates, Urine Not Detected (Not Detect); Benzodiazepines Screen Urine Not Detected (Not Detect); Cannabinoid Screen Urine POSITIVE (Not Detect); Cocaine Screen Urine Not Detected (Not Detect); Fentanyl, urine Not Detected (Not Detect); Opiate Screen Urine Not Detected (Not Detect); Phencyclidine Screen Urine Not Detected (Not Detect)
[2023-04-03 19:20] VITALS: BP 129/85; PULSE 73; RESP 19; TEMP 37.4; O2SAT 98
[2023-04-03 23:48] VITALS: BP 159/93; PULSE 70; RESP 16; TEMP 36.2; O2SAT 99
--- NOTE | 2023-04-04 05:45 | PC.NURSE ---
Patient slept through the night, no distress observed/reported, no report of abdominal pain, snacked and refreshed with drinks x 3, disposition per care team is voluntary inpatient bed search, behavior non concerning, med rec completed/currently not on any maintenance medication, labs completed.resulted, will continue to monitor.
[2023-04-04 09:01] VITALS: BP 140/96; PULSE 108; RESP 18; TEMP 36.8; O2SAT 97
== END 2023-04-04 09:21 | disposition home or self-care (01) ==
PROVIDERS: Emergency Provider Emergency Medicine Emergency Medical Services
DX: F33.1 Major depressive disorder, recurrent, moderate (principal); R10.32 Left lower quadrant pain; R45.851 Suicidal ideations; F14.10 Cocaine abuse, uncomplicated; R00.0 Tachycardia, unspecified; Z20.822 Contact with and (suspected) exposure to COVID-19; Z20.828 Contact with and (suspected) exposure to other viral communicable diseases; Z79.899 Other long term (current) drug therapy
CPT/HCPCS: 74177; 80053; 80307; 81001; 85025; 87635; 96360; 96361; 96372; 99284; 99285; J1885; Q9967; S9485

== ENCOUNTER 2023-06-18 12:56 | Outpatient (REF) | payer MEDICAID, SELFPAY ==
--- NOTE | ~2023-06-18 | MR_ITS ---
EXAMINATION: MR ABDOMEN WITHOUT AND WITH CONTRAST CLINICAL INFORMATION: Nonspecific upper abdominal collection. COMPARISON: CT abdomen/pelvis 04/03/2023. TECHNIQUE: MR abdomen was performed without and with use of 7.5 mL intravenous Gadavist gadolinium contrast. Postcontrast images are performed in multiphase dynamic sequences. Imaging was performed in 3 planes. FINDINGS: PERITONEAL SPACE: There is a 2.5 x 7.3 x 8.3 cm (AP x TV x CC dimensions) T2 bright cystic retroperitoneal observation posterior to the pancreas, conforming to the retroperitoneal space without significant mass effect. On postcontrast images, there is no enhancing thickened septation or mural nodules. This is increased in size compared to 11/02/2020 where it measured 2 x 4.8 x 6 cm. LUNG BASES: The visualized lung bases are unremarkable. LIVER, GALLBLADDER, AND BILIARY TREE: The liver is normal in size, smooth in contour, and normal in signal. No focal hepatic lesion or biliary ductal dilatation is present. The gallbladder is unremarkable with no evidence of gallbladder wall thickening, or obvious pericholecystic inflammatory changes. PANCREAS: Unremarkable. SPLEEN: Normal. ADRENAL GLANDS: Normal. KIDNEYS AND URETERS: The kidneys are normal in size, shape, and enhance symmetrically. No hydronephrosis. No perinephric stranding. GASTROINTESTINAL TRACT: No bowel obstruction. ABDOMINAL WALL: No significant hernia is appreciated. LYMPH NODES: No lymphadenopathy. VASCULAR: Unremarkable. OSSEOUS STRUCTURES: No acute or aggressive appearing osseous findings. MR/MR abdomen wo/w con IMPRESSION: Interval increase in size of a cystic retroperitoneal observation, now measuring 2.5 x 7.3 x 8.3 cm, previously 2 x 4.8 x 6 on 11/02/2020. 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 Additional less favored differential considerations include GI duplication cyst and peripancreatic pseudocyst. Given growth, surgical consultation is recommended to determine management.
[2023-06-18] MEDS: gadobutroL 7.5 ML VIAL IVPUSH (13:51)
== END 2023-06-18 12:57 | disposition home or self-care (01) ==
LOC: HO.MRI 12:56
PROVIDERS: Visit Provider Student in an Organized Health Care Education/Training Program
DX: R18.8 Other ascites (principal)
CPT/HCPCS: 74183; A9585

== ENCOUNTER 2023-08-04 07:39 | Emergency (ER) | payer MEDICAID, SELFPAY ==
--- NOTE | ~2023-08-04 | XR_ITS ---
EXAMINATION: XR HAND, RIGHT CLINICAL INFORMATION: Right hand/palm injury COMPARISON: None available. TECHNIQUE: PA, lateral, and oblique views of the right hand. FINDINGS: The bones are intact. No fracture. Alignment is anatomic. Joint spaces are maintained. No erosions or soft tissue calcifications. XR/XR hand RT min 3V IMPRESSION: No bony abnormality.
[2023-08-04 08:18] VITALS: BP 136/80; PULSE 83; RESP 17; TEMP 36.7; O2SAT 99; BMI 24.5
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
[2023-08-04] MEDS: Lidocaine HCl 1 % MPF 5 ML VIAL 10 ML SUBCUT (09:52)
[2023-08-04] MEDS: Diphth,Pertus(ACell),Tet Adult 0.5 ML SYRINGE IM (09:52)
== END 2023-08-04 11:01 | disposition home or self-care (01) ==
PROVIDERS: Emergency Provider Emergency Medicine
DX: S61.411A Laceration without foreign body of right hand, initial encounter (principal); S61.011A Laceration without foreign body of right thumb without damage to nail, initial encounter; S60.511A Abrasion of right hand, initial encounter; W26.9XXA Contact with unspecified sharp object(s), initial encounter; Y93.9 Activity, unspecified; Y92.9 Unspecified place or not applicable; Y99.9 Unspecified external cause status; Z23 Encounter for immunization
CPT/HCPCS: 12002; 73130; 90471; 90715; 99283; 99284

== ENCOUNTER 2023-08-24 02:31 | Emergency (ER) | payer OTHER, MEDICAID, SELFPAY ==
[2023-08-24] VITALS (9 sets, daily range): BP systolic 93–119; BP diastolic 46–76; PULSE 85–127; RESP 12–22; O2SAT 96–100; BMI 21.3
--- NOTE | 2023-08-24 02:44 | ED.PSYCH ---
HPI - Psych General Chief Complaint: Psychiatric Symptoms Stated Complaint: si Time Seen by Provider: 08/24/23 02:43 Source: EMS Mode of arrival: other ([place] police officers) Limitations: altered mental status History of Present Illness HPI Narrative: 32-year-old male who was brought to emergency department by EMS on a Section 12 issued by [place] police officers on the scene. Information was obtained from the [place] police shift commander who file the Section 12. The police to the patient's [id number] and brother for evaluation of acute agitation. The patient was fighting with his girlfriend and 8 suicidal statements that he was going to kill himself. He started to climb out a window to jump. The police officers found him dangling of a 4th story window and the police shift commander were able to pull full the patient back inside the house. The patient did admit to drinking alcohol and using cocaine. On presentation, the patient was agitated, he was combative, he was handcuffed to the energy engineer stretcher. Patient was very angry, I was unable to calm him down in redirect his anger, therefore he was placed on the stretcher, placed in physical strains and chemically restrained with Haldol 10 mg IM, lorazepam 2 mg IM and Benadryl 50 mg IM. Related Data Home Medications Medication Instructions Recorded Confirmed promethazine 12.5 mg rectal 12.5 mg IA Q6H PRN nausea/vomiting 04/03/23 04/03/23 suppository Previous Rx's Medication Instructions Recorded cephalexin 500 mg capsule 500 mg PO Q6H 7 days #28 caps 08/04/23 Allergies Allergy/AdvReac Type Severity Reaction Status Date / Time No Known Allergies Allergy Verified 04/02/23 20:38 [No Known Allergies*] Review of Systems Review of Systems: Yes all other systems are reviewed and are negative [facility] Past Medical History Medical History Nausea & vomiting Renal failure, acute Abdominal pain Cocaine abuse Pneumothorax Pneumomediastinum Cannabinoid hyperemesis syndrome No known health problems Social History Social History Household Members: Family Housing: Apartment Do you presently have visiting nurse or other home services: No Alcohol intake: current Alcohol intake frequency: holidays/special occasions only Alcohol type: beer and wine Patient Tobacco Use Status: Tobacco use Unknown Second Hand Smoke Exposure: No Substance Use Type: Crack/Cocaine Advance Directives: No Advance Directives Information Provided: No Advance Directives Date on File: 03/22/21 service: No Current occupational status: unemployed Physical Exam Vital Signs: Vital Signs: Last Vital Signs Pulse 92 08/24/23 05:33 Resp 17 08/24/23 05:33 BP 101/53 L 08/24/23 05:33 Pulse Ox 96 08/24/23 04:57 O2 Del Method Room Air 08/24/23 04:57 BMI result Body Mass Index 21.3 Vital signs were normal Exam General: Patient is agitated, uncooperative, he is diaphoretic, he has hyperactive Head: Normocephalic, atraumatic EENT: PERRL, Lids normal, sclera normal, conjunctiva normal, nose normal , ears normal, throat without erythema or exudates Neck: Supple, no adenopathy, no trachea midline or C-spine tenderness Lung: breath sounds symmetric, no wheezing, rales or rhonchi Chest: symmetric movement, nontender Heart: regular rate and rhythm, normal S1, S2 no murmurs or rubs Abdomen: soft, non-tender, nondistended, normal bowel sounds Back: no vertebral tenderness, no CVAT Extremities: no deformities, moves all extremities symmetrically Neuro: Awake, agitated, oriented to person blood,cranial nerves intact, moves all extremities symmetrically Medications Administered Discontinued Medications Generic Name Dose Route Start Last Admin Trade Name Freq PRN Reason Stop Dose Admin Diphenhydramine HCl 50 mg 08/24/23 02:44 08/24/23 03:03 Diphenhydramine Hcl 50 Mg/Ml Vial IM 08/24/23 02:45 50 mg ONCE ONE Administration Haloperidol Lactate 10 mg 08/24/23 02:44 08/24/23 03:03 Haloperidol Lactate 5 Mg/Ml Vial IM 08/24/23 02:45 10 mg ONCE ONE Administration Lorazepam 2 mg 08/24/23 02:44 08/24/23 03:03 Lorazepam 2 Mg/Ml Vial IM 08/24/23 02:45 2 mg STAT STA Administration Medical Decision Making Medical Decision Making MDM Narrative: 32-year-old male with history of cannabinoid hyperemesis syndrome, cocaine abuse, JOSE secondary to dehydration who was brought to emergency department by ambulance and escorted by police, on a Section 12 for making suicidal comments after getting in a fight with his girlfriend and for attempting to jump out of a 4th story window. Patient did admit to using cocaine and drinking alcohol. On presentation, patient was handcuffed to the stretcher, he was agitated, uncooperative and require four-point restraints on a stretcher and chemical restraint with Haldol 10 mg IM, Benadryl 50 mg IM and Ativan 2 mg IM. 07:13 Start physician observation: Patient's laboratory evaluate was unremarkable except for an elevated alcohol level of 181. CK is pending. Patient is resting comfortably and is out of 4 point restraints. The patient is on a Section 12 and will be kept here in the emergency department until in being interviewed by care team and a disposition can be determined The end of my shift, patient's care was turned over to my colleague, Dr. Dayan Fatima. Differential Diagnosis Differential Diagnoses: The differential diagnosis associated with the presentation includes Differential diagnosis includes was not limited to depression, anxiety, suicidal ideation, agitation, psychosis secondary to drug use, cocaine intoxication, alcohol intoxication Admission/Observation Consideration of admission/observation: Escalation of care including admission/observation considered Lab Data MDM Lab Attestation statement: I reviewed the patient's lab results. My interpretation patient's laboratory evaluation is as follows: WBC was normal 10,100. Potassium low 3.2. Bicarb low 21. BUN and creatinine were normal 15 and 1.1. LFTs were normal. Ethanol level elevated 181. 08/24/23 03:25 08/24/23 03:25 Labs: Lab Results 08/24/23 Range/Units 03:25 WBC 10.1 (4.8-10.8) X10*3/uL RBC 4.62 (4.60-5.80) X10*6/uL Hgb 12.3 L (14.0-18.0) g/dl Hct 38.1 L (42.0-52.0) % MCV 82.5 (80.0-98.0) fL MCH 26.6 L (27.0-33.0) pg MCHC 32.3 (31.0-36.0) g/dl RDW 13.4 (11.0-16.0) % Plt Count 280 (160-400) X10*3/uL MPV 9.5 (9.4-12.4) fL Immature Gran % (Auto) 0.2 (0.0-0.4) % Neut % (Auto) 74.2 H (45-73) % Lymph % (Auto) 20.1 (20-40) % Andrews % (Auto) 5.1 (2-11) % Eos % (Auto) 0.1 (0-4) % Baso % (Auto) 0.3 (0-2) % Lymph # (Auto) 2.0 (1.2-4.9) X10*3/uL Andrews # (Auto) 0.5 (0.1-1.2) X10*3/uL Eos # (Auto) 0.0 (0.0-0.4) X10*3/uL Baso # (Auto) 0.0 (0.0-0.2) X10*3/uL Abs Immat Gran (auto) 0.02 (0.00-0.03) X10*3/uL Absolute Neuts (auto) 7.5 (2.0-8.3) x10*3/uL Absolute Nucleated RBC 0.000 (0.0-0.012) X10*3/uL Nucleated RBC % (auto) 0.0 (0.0-0.2) /100WBC Sodium 143 (135-145) mmol/L Potassium 3.2 L D (3.3-5.1) mmol/L Chloride 106 (96-108) mmol/L Carbon Dioxide 21 L (22-29) mmol/L Anion Gap 19 (12-20) BUN 15 (9-16) mg/dL Creatinine 1.11 (0.5-1.4) mg/dL Estim Creat Clear Calc 87.4 Estimated GFR > 60 Random Glucose 97 (60-115) mg/dL Calcium 9.7 (8.4-10.2) mg/dL Total Bilirubin 0.3 (0.0-1.0) mg/dL AST 25 (5-37) U/L ALT 19 (0-40) U/L Alkaline Phosphatase 86 (39-117) U/L Total Protein 7.1 (6.5-8.0) g/dL Albumin 4.5 (3.5-5.0) g/dL Ethyl Alcohol 181 mg/dL Critical Care Time Critical Care Time Critical Care Time: Yes Total Critical Care Time: 45 Attestation: Critical Care: The patient was critically ill with a high probability of imminent or life threatening deterioration. I spent greater than 30 minutes of discontinuous time evaluating the patient,delivering critical care at the bedside, discussing and evaluating pertinent data with consultants, monitoring and a restraining patient secondary to danger to self and staff. Critical care time does not include time spent performing separately billable procedures or teaching. Total time spent performing critical care was 45 minutes. Discharge Plan Discharge Clinical Impression: Suicide attempt, Cocaine use Alcohol intoxication Qualifiers: Complication of substance-induced condition: uncomplicated Qualified Code(s): F10.920 - Alcohol use, unspecified with intoxication, uncomplicated Patient Disposition: Still a Patient Prescriptions: No Action promethazine 12.5 mg suppository 12.5 mg IA Q6H PRN (Reason: nausea/vomiting) cephalexin 500 mg capsule 500 mg PO Q6H 7 Days Qty: 28 0RF Interventions: [place]-Suicide Risk Severity Scale Last Done: 08/24/23 03:03
[2023-08-24] MEDS: Haloperidol Lactate 5 MG/ML VIAL 10 MG IM (03:03)
[2023-08-24] MEDS: LORazepam 2 MG/ML VIAL IM (03:03)
[2023-08-24] MEDS: diphenhydrAMINE HCL 50 MG/ML VIAL IM (03:03)
--- NOTE | 2023-08-24 03:15 | PC.NURSE ---
Late enry: patient was brought in by PD, per PD they were called because the patient was attempting to jump out of his 4th floor window after arguing with his girlfriend. Upon arrival patients behavior is erratic, unable to follow directions, demanding to use a phone. This RN provided patient with phone, patient became upset when his girlfriend did not scrap picker. Pt continued to be agitated, attempting to get out of bed. Verbal order from MD Kidd for physical restraint and chemical restraint. PD and security restrained patient, this RN and Carina NAIR chemically restrained pt. Pt eventually fell asleep, respirations even and unlabored
[2023-08-24 03:28] LABS: MANUAL DIFF FLAG NO
[2023-08-24 03:31] LABS: Basophils Percent Auto 0.3 % (0-2); Eosinophils Percent Auto 0.1 % (0-4); Hematocrit 38.1 % (42.0-52.0); Hemoglobin 12.3 g/dl (14.0-18.0); Imm Gran Abs Auto 0.02 X10*3/uL (0.00-0.03); Imm Gran Pct Auto 0.2 % (0.0-0.4); Lymphocytes Percent Auto 20.1 % (20-40); Mean Corpuscular HGB Conc 32.3 g/dl (31.0-36.0); Mean Corpuscular Hemoglobin 26.6 pg (27.0-33.0); Mean Corpuscular Volume 82.5 fL (80.0-98.0); Mean Platelet Volume 9.5 fL (9.4-12.4); Monocytes Absolute Auto 0.5 X10*3/uL (0.1-1.2); Monocytes Percent Auto 5.1 % (2-11); Neutrophils Absolute Auto 7.5 x10*3/uL (2.0-8.3); Neutrophils Percent Auto 74.2 % (45-73); Platelet Count 280 X10*3/uL (160-400); Red Blood Count 4.62 X10*6/uL (4.60-5.80); Red Cell Distribution Width 13.4 % (11.0-16.0); White Blood Count 10.1 X10*3/uL (4.8-10.8)
[2023-08-24 03:50] LABS: Alanine Aminotransferase 19 U/L (0-40); Albumin Level 4.5 g/dL (3.5-5.0); Alkaline Phosphatase 86 U/L (39-117); Anion Gap 19 (12-20); Aspartate Amino Transferase 25 U/L (5-37); Bilirubin Total 0.3 mg/dL (0.0-1.0); Blood Urea Nitrogen 15 mg/dL (9-16); Calcium 9.7 mg/dL (8.4-10.2); Carbon Dioxide 21 mmol/L (22-29); Chloride 106 mmol/L (96-108); Creatinine Clr Calc Pharmacy 87.4; Estimated Glomerular Filt Rate > 60; Ethanol 181 mg/dL; Glucose Random 97 mg/dL (60-115); Potassium 3.2 mmol/L (3.3-5.1); Sodium 143 mmol/L (135-145); Total Protein 7.1 g/dL (6.5-8.0)
[2023-08-24] MEDS: Potassium Chloride Packet 20 MEQ PACKET 40 MEQ PO (09:18)
--- NOTE | 2023-08-25 00:19 | PC.NURSE ---
This RN assume care of patient at 2300, patient has been sleeping, respriations even and unlabored, no apparent distress. Awoke once to go to bathroom, returned from bathroom and fell back asleep
[2023-08-25 06:17] VITALS: RESP 14
[2023-08-25 07:36] VITALS: BP 137/88; PULSE 85; RESP 16; TEMP 37.1; O2SAT 99
[2023-08-25 12:18] LABS: Appearance Urine Clear; Color Urine Yellow; Glucose Urine UA Negative (Negative); Leukocyte Esterase Urine Negative (Negative); Nitrite Urine Negative (Negative); PH 5.5 (5.0-9.0); Specific Gravity - Urine >= 1.030 (1.005-1.025); Urine Blood Negative (Negative); Urine Ketones Negative (Negative); Urine Protein Negative (Neg-Trace)
[2023-08-25 12:22] LABS: Amphetamine Screen Urine Not Detected (Not Detect); Barbiturates, Urine Not Detected (Not Detect); Benzodiazepines Screen Urine Not Detected (Not Detect); Cannabinoid Screen Urine POSITIVE (Not Detect); Cocaine Screen Urine POSITIVE (Not Detect); Fentanyl, urine Not Detected (Not Detect); Opiate Screen Urine Not Detected (Not Detect); Phencyclidine Screen Urine Not Detected (Not Detect)
--- NOTE | 2023-08-25 13:48 | PC.NURSE ---
Tristin has been in bed resting for most of the shift. Was able to give a urine sample for tox screen and UA. Appetite good. Showered and dressed independently. No complaints of pain or discomfort.
--- NOTE | 2023-08-25 13:57 | PC.NURSE ---
Tristin ate 100% of lunch. Denies SI/HI/AVH. [facility] BLACK arrived to bring Tristin to court on a section 35. Tristin discharged without incident.
== END 2023-08-25 13:58 | disposition home or self-care (01) ==
PROVIDERS: Emergency Medicine Emergency Medical Services; Emergency Provider Emergency Medicine
DX: F10.920 Alcohol use, unspecified with intoxication, uncomplicated (principal); R45.851 Suicidal ideations; F14.10 Cocaine abuse, uncomplicated; Y90.6 Blood alcohol level of 120-199 mg/100 ml; Z79.899 Other long term (current) drug therapy
CPT/HCPCS: 36415; 80053; 80307; 81003; 82550; 85025; 96372; 99285; J1200; J2060; S9485

== ENCOUNTER 2023-10-14 15:10 | Outpatient (AMB) | payer MEDICAID, SELFPAY ==
--- NOTE | 2023-10-14 15:16 | MHC.OFFVIS ---
Intake Vital Signs 10/14/23 15:19 Height 5 ft 5 in Weight 162 lb 11.218 oz BMI 27.1 BP 136/90 H Blood Pressure Location Lt brachial Position Sitting Intake Visit Reasons: Abdominal Pain Intake Note: Patient is seen in office for evaluation and treatment of abdominal pain. Pt c/o: onset years, at least once a year ends up at ED due to pain, nausea, vomit, cramps at the stomach, diarrhea had an MRI done and was told to follow up, currently has no symptoms Causticiser Required: No Accompanied by: Self / Same As Patient Allergies No Known Allergies [No Known Allergies*] Allergy (Verified 10/14/23 15:18) Medication List - Last Reconciled 10/16/23 by Ko Ivy MD No Known Home Meds HPI HPI Comments History of Present Illness Details 33-year-old male patient presenting for evaluation of a peripancreatic fluid collection noted on recent abdominal MRI. He has a known history of cocaine use and occasional marijuana use with multiple admissions for upper abdominal pain, nausea and vomiting. He has had several admissions for similar symptoms which resolved after approximately 5-[address] on a previous admission did revealed a peripancreatic fluid collection and subsequent follow-up MRI confirm the fluid collection which seemed to have increased in size. Surgical consultation was recommended for further management of this collection. Patient currently has no abdominal pain, nausea or vomiting. He denies a history of pancreatitis or abdominal trauma. He denies fever, chills, diarrhea or constipation. [facility] Medical History Nausea & vomiting Renal failure, acute Abdominal pain Cocaine abuse Pneumothorax Pneumomediastinum Cannabinoid hyperemesis syndrome No known health problems Social History Household Members: Family Housing: Apartment Do you presently have visiting nurse or other home services: No Alcohol intake: current Alcohol intake frequency: holidays/special occasions only Alcohol type: beer and wine Patient Tobacco Use Status: Tobacco use Unknown Second Hand Smoke Exposure: No Substance Use Type: Crack/Cocaine Advance Directives Date on File: 03/22/21 service: No Current occupational status: unemployed Review of Systems Const All systems reviewed & are unremarkable except as noted in HPI and below Physical Exam Vital Signs: Last Vital Signs BP 136/90 H 10/14/23 15:19 BMI result Body Mass Index 27.1 Const General: no acute distress and well developed Nutritional Appearance: well nourished Orientation/consciousness: patient oriented x3 Limitations: no limitations HEENT Head: Yes normocephalic and Yes atraumatic Ears: hearing grossly normal bilaterally Eyes Sclerae: sclerae normal Resp Effort & Inspection: normal respiratory effort, no audible wheezes, no cough and no respiratory distress GI Inspection: Yes normal to inspection Palpation (GI): Soft to palpation, nontender, no guarding, not rigid and No hepatosplenomegaly present Skin General skin exam: no rashes or lesions noted Neuro General: patient oriented x3 Extrem General: Yes no clubbing, cyanosis or edema Results Reviewed Results Reviewed: MRI abdomen and pelvis Assessment & Plan Assessment & Plan (1) Peripancreatic fluid collection: Code(s): K86.89 - Other specified diseases of pancreas Plan 33-year-old male patient with recurring episodes of upper abdominal pain, nausea and vomiting initially thought to be due to marijuana use, now found to have a peripancreatic fluid collection by both CT and MRI. Review of the MRI does show a collection partially surrounding the pancreatic tail possibly due to a duplication or pseudocyst. The patient is currently asymptomatic but does know an annual recurrence of the pain. I suggested the patient be evaluated by a dedicated pancreatic surgeon and have subsequently placed a consultation request with Dr. Ananya José at [facility]. He expressed understanding and agrees with the plan. Orders: Referrals Surgical Oncology Referral K86.89 - Other specified diseases of pancreas Coding Level of Care Code New Pt Level 4 (18737) Diagnoses Peripancreatic fluid collection K86.89
[2023-10-14 15:19] VITALS: BP 136/90; BMI 27.1
== END 2023-10-14 15:34 | disposition home or self-care (01) ==
PROVIDERS: PCP Nurse Practitioner Primary Care; Referring Provider Nurse Practitioner Primary Care; Visit Provider Surgery
DX: K86.89 Other specified diseases of pancreas (principal)
CPT/HCPCS: 99203

== ENCOUNTER → 2023-10-14 15:10 | Outpatient (BNVA) | payer MEDICAID, SELFPAY | PROVIDERS: PCP Nurse Practitioner Primary Care; Referring Provider Nurse Practitioner Primary Care; Visit Provider Surgery | DX: K86.89 Other specified diseases of pancreas (principal) | CPT/HCPCS: 99202 ==

== ENCOUNTER 2024-03-26 19:43 | Emergency (ER) | payer MEDICAID, SELFPAY ==
[2024-03-26 20:14] LABS: Glucose, Whole Blood 118 mg/dL (60-115)
[2024-03-26] MEDS: 0.9 % Sodium Chloride 1,000 ML 999 ML IVCONT ×2 (20:16→21:04)
[2024-03-26 20:17] LABS: MANUAL DIFF FLAG NO
[2024-03-26 20:21] VITALS: BP 143/87; PULSE 85; RESP 12; TEMP 36.5; O2SAT 100; BMI 27.4
[2024-03-26 20:21] LABS: Basophils Percent Auto 0.2 % (0-2); Eosinophils Percent Auto 0.1 % (0-4); Hematocrit 43.4 % (42.0-52.0); Hemoglobin 14.6 g/dl (14.0-18.0); Imm Gran Abs Auto 0.01 X10*3/uL (0.00-0.03); Imm Gran Pct Auto 0.1 % (0.0-0.4); Lymphocytes Absolute Auto 1.4 X10*3/uL (1.2-4.9); Lymphocytes Percent Auto 15.6 % (20-40); Mean Corpuscular HGB Conc 33.6 g/dl (31.0-36.0); Mean Corpuscular Hemoglobin 27.5 pg (27.0-33.0); Mean Corpuscular Volume 81.9 fL (80.0-98.0); Mean Platelet Volume 10.5 fL (9.4-12.4); Monocytes Absolute Auto 0.7 X10*3/uL (0.1-1.2); Monocytes Percent Auto 7.4 % (2-11); Neutrophils Absolute Auto 6.8 x10*3/uL (2.0-8.3); Neutrophils Percent Auto 76.6 % (45-73); Platelet Count 284 X10*3/uL (160-400); White Blood Count 8.9 X10*3/uL (4.8-10.8)
--- NOTE | 2024-03-26 20:27 | PC.NURSE ---
Patient flipping himself over in bed, heaving, stating I dont want to be here . Patient refusing to lie still for EKG.
--- NOTE | 2024-03-26 20:29 | MHC.EDTECH ---
patient refuses ekg nurse aware
[2024-03-26 20:38] LABS: Ethanol < 10 mg/dL
[2024-03-26 20:40] LABS: Alanine Aminotransferase 15 U/L (0-40); Albumin Level 4.9 g/dL (3.5-5.0); Alkaline Phosphatase 79 U/L (39-117); Anion Gap 17 (12-20); Aspartate Amino Transferase 17 U/L (5-37); Bilirubin Direct 0.2 mg/dL (0.0-0.5); Bilirubin Total 0.7 mg/dL (0.0-1.0); Blood Urea Nitrogen 15 mg/dL (9-16); Calcium 10.2 mg/dL (8.4-10.2); Carbon Dioxide 22 mmol/L (22-29); Chloride 109 mmol/L (96-108); Creatinine Clr Calc Pharmacy 89.2; Estimated Glomerular Filt Rate > 60; Glucose Random 98 mg/dL (60-115); Lipase 9 U/L (8-78); Magnesium 2.1 mg/dL (1.6-2.6); Potassium 3.7 mmol/L (3.3-5.1); Sodium 144 mmol/L (135-145); Total Protein 7.6 g/dL (6.5-8.0)
--- NOTE | 2024-03-26 20:45 | ED_ITS ---
HPI - General Adult General Chief complaint: Nausea/Vomiting/Diarrhea Stated complaint: stomach cramp, vomiting, pain Time Seen by Provider: 03/26/24 20:44 Source: patient and family History of Present Illness HPI narrative: 33-year-old male who has a history of alcohol use, cocaine use, cannabis use, recurrent abdominal pain with nausea and vomiting, presents the emergency department for evaluation of acute onset nausea and vomiting that began earlier today. Patient's significant other reports that this happens on occasion. Today was a rather abrupt onset and he has not been able to tolerate fluids today. Patient confirms tobacco use, occasional alcohol use but none today. Does use cocaine with his last use yesterday. Occasional marijuana use but states has not used in approximately 1 week. Currently the patient is complaining of nausea and vomiting. He reports diffuse abdominal cramping. No fevers or chills. No sick contacts. No trauma. Related Data Previous Rx's ?Medication ?Instructions ?Recorded ondansetron 4 mg disintegrating 4 mg PO Q8H PRN nausea and 03/26/24 tablet vomiting #12 tabs sucralfate 100 mg/mL oral 10 ml PO BID #200 mL 03/26/24 suspension Allergies Allergy/AdvReac Type Severity Reaction Status Date / Time No Known Allergies Allergy Verified 03/26/24 20:22 [No Known Allergies*] Review of Systems 2 Constitutional: Constitutional: Denies chills, Denies fever(s) and Denies headache(s) Eyes: Eyes: Denies change in vision and Denies other (No redness.) ENT: Denies headache(s), Denies nasal congestion, Denies nasal discharge, Denies neck pain and Denies sore throat Cardiovascular: Cardiovascular: Denies chest pain, Denies palpitations, Denies dyspnea, Denies dyspnea on exertion and Denies orthopnea Respiratory: Respiratory: Denies cough, Denies dyspnea and Denies dyspnea on exertion Gastrointestinal: Gastrointestinal: Reports abdominal pain, Reports nausea and Reports vomiting Genitourinary: Genitourinary: Denies difficulty urinating, Denies dysuria and Denies urinary urgency Musculoskeletal: Musculoskeletal: Denies back pain, Denies muscle weakness, Denies neck pain and Denies numbness Integumentary/Breasts: Skin/Breast: Denies rash Neurologic: Denies headache(s), Denies focal weakness and Denies numbness Psychiatric: Psychiatric: Denies depression Endocrine: Endocrine: Denies palpitations PMFSH Past Medical History Source: obtained from family and nursing notes reviewed Medical History Nausea & vomiting Renal failure, acute Abdominal pain Cocaine abuse Pneumothorax Pneumomediastinum Cannabinoid hyperemesis syndrome No known health problems Social History Social History Household Members: Family Housing: Apartment Do you presently have visiting nurse or other home services: No Alcohol intake: current Alcohol intake frequency: holidays/special occasions only Alcohol type: beer and wine Patient Tobacco Use Status: Tobacco use Unknown Second Hand Smoke Exposure: No Substance Use Type: Crack/Cocaine Advance Directives: No Advance Directives Information Provided: No Advance Directives Date on File: 03/22/21 Do you have a plan to hurt others: No Plan service: No Current occupational status: unemployed Physical Exam ED Vital Signs: Vital Signs - 24 hr 03/26/24 20:21 03/26/24 21:59 Temperature 97.7 F 98.4 F Pulse Rate 85 77 Respiratory Rate 12 16 Blood Pressure 143/87 H 136/84 Pulse Oximetry 100 97 Oxygen Delivery Method Room Air Room Air BMI result Body Mass Index 27.4 Const General: alert and Physically active Orientation/consciousness: patient oriented x3 Resp Auscultation: clear to auscultation bilaterally Cardio Rate: regular rate Rhythm: regular rhythm GI Other: Abdomen is soft and nontender throughout. There is no peritoneal signs. No CVAT. No rebound or guarding. Neuro General: patient oriented x3 Course Course Course Narrative: 9:50 p.m. patient reports significant improvement after IV fluids and medications. He was able to tolerate p.o. liquids. Patient feels comfortable with discharge plan home. Reviewed all discharge instructions, including follow-up with GI. No further questions at this time. Medications Administered Discontinued Medications Generic Name Dose Route Start Last Admin Trade Name Freq PRN Reason Stop Dose Admin Diphenhydramine HCl 25 mg 03/26/24 20:55 03/26/24 21:04 Diphenhydramine Hcl 50 Mg/Ml Vial IVPUSH 03/26/24 20:56 25 mg ONCE ONE Administration Sodium Chloride 1,000 mls @ 999 mls/hr 03/26/24 20:00 03/26/24 22:02 Ns IVCONT 03/26/24 22:00 Infused .Q1H1M VINAYAK Infusion Ketorolac Tromethamine 15 mg 03/26/24 20:55 03/26/24 21:04 Ketorolac Tromethamine 15 Mg/Ml Vial IVPUSH 03/26/24 20:56 15 mg ONCE ONE Administration Metoclopramide HCl 10 mg 03/26/24 20:55 03/26/24 21:04 Metoclopramide Hcl 10 Mg/2 Ml Vial IVPUSH 03/26/24 20:56 10 mg ONCE ONE Administration Medical Decision Making Medical Decision Making [facility] Narrative: 33-year-old male with a history of polysubstance use, abdominal pain with nausea and vomiting, with history of similar. Patient to receive IV fluids and antiemetics. Differential Diagnosis Differential Diagnoses: The differential diagnosis associated with the presentation includes Cyclic vomiting syndrome Cannabis hyperemesis Polysubstance use Dehydration Metabolic abnormality Admission/Observation Consideration of admission/observation: Escalation of care including admission/observation considered Consideration for medical admission if clinically warranted. Lab Data [facility] Lab Attestation statement: I reviewed the patient's lab results. 03/26/24 20:11 03/26/24 20:11 Labs: Lab Results 03/26/24 03/26/24 Range/Units 20:04 20:11 WBC 8.9 (4.8-10.8) X10*3/uL RBC 5.30 (4.60-5.80) X10*6/uL Hgb 14.6 (14.0-18.0) g/dl Hct 43.4 (42.0-52.0) % MCV 81.9 (80.0-98.0) fL MCH 27.5 (27.0-33.0) pg MCHC 33.6 (31.0-36.0) g/dl RDW 13.0 (11.0-16.0) % Plt Count 284 (160-400) X10*3/uL MPV 10.5 (9.4-12.4) fL Immature Gran % (Auto) 0.1 (0.0-0.4) % Neut % (Auto) 76.6 H (45-73) % Lymph % (Auto) 15.6 L (20-40) % Benton % (Auto) 7.4 (2-11) % Eos % (Auto) 0.1 (0-4) % Baso % (Auto) 0.2 (0-2) % Lymph # (Auto) 1.4 (1.2-4.9) X10*3/uL Benton # (Auto) 0.7 (0.1-1.2) X10*3/uL Eos # (Auto) 0.0 (0.0-0.4) X10*3/uL Baso # (Auto) 0.0 (0.0-0.2) X10*3/uL Abs Immat Gran (auto) 0.01 (0.00-0.03) X10*3/uL Absolute Neuts (auto) 6.8 (2.0-8.3) x10*3/uL Absolute Nucleated RBC 0.000 (0.0-0.012) X10*3/uL Nucleated RBC % (auto) 0.0 (0.0-0.2) /100WBC Hold Blue Top SEE NOTE Sodium 144 (135-145) mmol/L Potassium 3.7 (3.3-5.1) mmol/L Chloride 109 H (96-108) mmol/L Carbon Dioxide 22 (22-29) mmol/L Anion Gap 17 (12-20) BUN 15 (9-16) mg/dL Creatinine 1.16 (0.5-1.4) mg/dL Estim Creat Clear Calc 89.2 Estimated GFR > 60 POC Glucose 118 H (60-115) mg/dL Random Glucose 98 (60-115) mg/dL Calcium 10.2 (8.4-10.2) mg/dL Magnesium 2.1 (1.6-2.6) mg/dL Total Bilirubin 0.7 (0.0-1.0) mg/dL Direct Bilirubin 0.2 (0.0-0.5) mg/dL AST 17 (5-37) U/L ALT 15 (0-40) U/L Alkaline Phosphatase 79 (39-117) U/L Troponin I High Sens < 2.7 (<3.5-35.0) ng/L Total Protein 7.6 (6.5-8.0) g/dL Albumin 4.9 (3.5-5.0) g/dL Lipase 9 (8-78) U/L Ethyl Alcohol < 10 mg/dL Influenza Type A (PCR) NEGATIVE (Negative) Influenza Type B (PCR) NEGATIVE (Negative) RSV RNA Qual (PCR) NEGATIVE (Negative) SARS-CoV-2 RNA (RT-PCR) NEGATIVE (Negative) Independent Historian Clinical information obtained from an independent historian. History obtained from or confirmed by: Other Significant other External Record Review External record reviewed: Inpatient record Tests considered The following testing was considered but not selected: Consideration for CT however given the patient's labs are within normal ranges, history of similar symptoms, and rapid improvement after medications, will defer at this time. Patient expresses agreement with this. Prescription Management I considered prescription management with: Pain Medication Discharge Plan Discharge Clinical Impression: Acute nausea with nonbilious vomiting, Cocaine abuse Patient Disposition: Home, Self-Care Instructions: Acute Nausea and Vomiting (ED) Additional Instructions: Clear liquids. [place] diet. Gradually advanced. Zofran as directed for nausea. Follow-up with GI referral, Dr. Kidd. Avoid all drug and alcohol use. Follow-up with your primary care provider. Call this week to schedule a follow- up appointment. Return to the emergency department if you have any worsening of symptoms, or any concerns. Get well soon! Prescriptions: New ondansetron 4 mg tablet,disintegrating 4 mg PO Q8H PRN (Reason: nausea and vomiting) Qty: 12 0RF sucralfate 100 mg/mL suspension 10 ml PO BID Qty: 200 0RF Referrals: Jelani Kidd MD [Physician] - 1 week (recurrent abdominal pain, vomiting) Interventions: ED Discharge Assessment Last Done: 03/26/24 21:59 Discharge Date/Time: 03/26/24 22:02 Print Language: Uzbek
[2024-03-26 20:48] LABS: Troponin-I High Sensitivity < 2.7 ng/L (<3.5-35.0)
[2024-03-26] MEDS: Metoclopramide HCl 10 MG/2 ML VIAL IVPUSH (21:04)
[2024-03-26] MEDS: diphenhydrAMINE HCL 50 MG/ML VIAL 25 MG IVPUSH (21:04)
[2024-03-26] MEDS: Ketorolac Tromethamine 15 MG/ML VIAL IVPUSH (21:04)
[2024-03-26 21:07] LABS: Influenza A PCR NEGATIVE (Negative); Influenza B PCR NEGATIVE (Negative); Resp Syncy Virus RNA Qual PCR NEGATIVE (Negative); SARS COV2 PCR INHOUSE NEGATIVE (Negative)
[2024-03-26 21:59] VITALS: BP 136/84; PULSE 77; RESP 16; TEMP 36.9; O2SAT 97
== END 2024-03-26 22:02 | disposition home or self-care (01) ==
PROVIDERS: Physician Assistant Medical; Emergency Provider Emergency Medicine; PCP Nurse Practitioner Primary Care
DX: R11.2 Nausea with vomiting, unspecified (principal); R10.9 Unspecified abdominal pain; F14.10 Cocaine abuse, uncomplicated; Z03.818 Encounter for observation for suspected exposure to other biological agents ruled out
CPT/HCPCS: 0241U; 36415; 80048; 80076; 80307; 82947; 83690; 83735; 84484; 85025; 96361; 96374; 96375; 99283; 99284; J1200; J1885; J2765

== ENCOUNTER 2024-11-20 23:21 | Emergency (ER) | payer MEDICAID, SELFPAY ==
--- NOTE | 2024-11-20 | ECG_ITS ---
Test Reason : CP Blood Pressure : */* mmHG Vent. Rate : 94 BPM Atrial Rate : 94 BPM P-R Int : 124 ms QRS Dur : 82 ms QT Int : 308 ms P-R-T Axes : 69 63 27 degrees QTcB Int : 385 ms Normal sinus rhythm Possible Left atrial enlargement Borderline ECG When compared with ECG of 02-Apr-2023 21:03, T wave inversion less evident in Inferior leads Nonspecific T wave abnormality no longer evident in Lateral leads QT has shortened Referred By: Generic ED Physician Electronically Signed By: Eliecer Montalvo
--- NOTE | ~2024-11-20 | XR_ITS ---
CLINICAL HISTORY: cp cough 1 view chest x-ray Comparison: CR - XR CHEST 2V - 11/04/20 10:21 EST Findings: No consolidation or effusion. Heart size is normal. No acute fracture. IMPRESSION: 1. No acute findings. This document has been electronically signed by: Chalino Pena MD on 11/21/2024 00:28:56
[2024-11-20 23:35] VITALS: BP 111/65; BP 134/80; PULSE 103; PULSE 98; RESP 18; TEMP 39.5; O2SAT 96; BMI 29.1
[2024-11-21 00:05] LABS: IDNOW Serial# 08D9AD1C; Strep A Nucleic Acid Negative (Negative)
[2024-11-21 00:34] LABS: Influenza A PCR POSITIVE (Negative); Influenza B PCR NEGATIVE (Negative); Resp Syncy Virus RNA Qual PCR NEGATIVE (Negative); SARS COV2 PCR INHOUSE NEGATIVE (Negative)
[2024-11-21] MEDS: Ibuprofen 600 MG TABLET PO (00:43)
--- NOTE | 2024-11-21 01:13 | ED.URI ---
HPI - URI/Sore Throat General Chief Complaint: Upper Respiratory Symptoms Stated Complaint: covid? Time Seen by Provider: 11/21/24 01:11 Source: patient Mode of arrival: ambulatory Limitations: no limitations History of Present Illness ED Provider: HPI Narrative: Patient's came here for upper respiratory symptoms body aches sore throat running nose for last 2 days patient's spouse also sick with same Related Data Previous Rx's ?Medication ?Instructions ?Recorded ondansetron 4 mg disintegrating 4 mg PO Q8H PRN nausea and 03/26/24 tablet vomiting #12 tabs sucralfate 100 mg/mL oral 10 ml PO BID #200 mL 03/26/24 suspension benzonatate 200 mg capsule 200 mg PO TID PRN cough #30 caps 11/21/24 Allergies Allergy/AdvReac Type Severity Reaction Status Date / Time No Known Allergies Allergy Verified 11/20/24 23:36 [No Known Allergies*] Review of Systems Review of Systems: Yes all other systems are reviewed and are negative PMFSH Past Medical History Medical History Nausea & vomiting Renal failure, acute Abdominal pain Cocaine abuse Pneumothorax Pneumomediastinum Cannabinoid hyperemesis syndrome No known health problems Social History Social History Household Members: Family Housing: Apartment Do you presently have visiting nurse or other home services: No Alcohol intake: current Alcohol intake frequency: holidays/special occasions only Alcohol type: beer and wine Patient Tobacco Use Status: Tobacco use Unknown Second Hand Smoke Exposure: No Substance Use Type: Crack/Cocaine Advance Directives: No Advance Directives Information Provided: No Advance Directives Date on File: 03/22/21 Do you have a plan to hurt others: No Plan service: No Current occupational status: unemployed Physical Exam Vital Signs: Vital Signs: Last Vital Signs Temp 103.1 F H 11/20/24 23:35 Pulse 98 11/20/24 23:35 Resp 18 11/20/24 23:35 BP 111/65 11/20/24 23:35 O2 Del Method Room Air 11/20/24 23:35 BMI result Body Mass Index 29.1 Appearance: Alert. Oriented X3. No acute distress. ENT: Pharynx normal. Oral Mucosa moist clear rhinorrhea Neck: Normal inspection. Neck supple. CVS: Normal heart rate and rhythm. Pulses normal. Respiratory: No respiratory distress. Equal air entry bilateral, no wheezing/rales/rhonchi Skin: Skin warm and dry. Normal skin color. Normal skin turgor. Extremities: No lower extremity edema. Neuro: Oriented X 3. Medications Administered Discontinued Medications Generic Name Dose Route Start Last Admin Trade Name Freq PRN Reason Stop Dose Admin Ibuprofen 600 mg 11/20/24 23:43 11/21/24 00:43 Ibuprofen 600 Mg Tablet PO 11/20/24 23:44 600 mg ONCE ONE Administration Medical Decision Making Medical Decision Making [facility] Narrative: Patient with influenza a already been 2 days will prescribe cough drops ibuprofen advised to drink plenty of fluids Lab Data [facility] Lab Attestation statement: I reviewed the patient's lab results. Labs: Lab Results 11/20/24 Range/Units 23:49 Influenza Type A (PCR) POSITIVE A (Negative) Influenza Type B (PCR) NEGATIVE (Negative) RSV RNA Qual (PCR) NEGATIVE (Negative) SARS-CoV-2 RNA (RT-PCR) NEGATIVE (Negative) S. pyogenes GrpA KAMILAH Negative (Negative) Discharge Plan Discharge Clinical Impression: Influenza A Patient Disposition: Home, Self-Care Instructions: Influenza (ED) Additional Instructions: Drink plenty of fluids Tylenol/Motrin for body aches Cough drops as prescribed Prescriptions: New benzonatate 200 mg capsule 200 mg PO TID PRN (Reason: cough) Qty: 30 0RF No Action ondansetron 4 mg tablet,disintegrating 4 mg PO Q8H PRN (Reason: nausea and vomiting) Qty: 12 0RF sucralfate 100 mg/mL suspension 10 ml PO BID Qty: 200 0RF Print Language: Australian
[2024-11-21 01:45] VITALS: BP 111/65; PULSE 98; RESP 18; TEMP 37.9
[2024-11-21] MEDS: guaiFEN/Codeine SF 200/20/10ML 10 ML LIQUID PO (01:56)
== END 2024-11-21 01:48 | disposition home or self-care (01) ==
PROVIDERS: Emergency Provider Internal Medicine; PCP Nurse Practitioner Primary Care
DX: J10.1 Influenza due to other identified influenza virus with other respiratory manifestations (principal); M79.10 Myalgia, unspecified site; R09.89 Other specified symptoms and signs involving the circulatory and respiratory systems; R07.89 Other chest pain; Z03.818 Encounter for observation for suspected exposure to other biological agents ruled out
CPT/HCPCS: 0241U; 71045; 87651; 93005; 99283

== ENCOUNTER → 2024-11-20 23:43 | Outpatient (BNV) | payer MEDICAID, SELFPAY | PROVIDERS: Visit Provider Radiology Diagnostic Radiology | DX: R07.9 Chest pain, unspecified (principal); R05.9 Cough, unspecified | CPT/HCPCS: 71045 ==

== ENCOUNTER → 2024-11-20 23:44 | Outpatient (BNV) | payer MEDICAID, SELFPAY | PROVIDERS: Emergency Provider Internal Medicine; PCP Nurse Practitioner Primary Care; Visit Provider Internal Medicine Cardiovascular Disease | DX: R07.9 Chest pain, unspecified (principal) | CPT/HCPCS: 93010 ==